=== PATIENT | female | born 1980 | race African-American/Black ===

== ENCOUNTER 2016-11-24 17:57 | Emergency (ER) | payer OTHER ==
[~2016-11-24] VITALS: Ht 160 cm; Wt 62.6 kg
[~2016-11-24 17:57] MED LIST: ACETAMINOPHEN-1 EAC1 PO; AMOXICILLIN500 M1 PO; BLOOD PRESSURE; CIPRO500 MG PO; COLACE100 MG PO; HYDROCODONE-AP1 EAC6 PO; LEVAQUIN 250 M250 MG PO; LOPRESSOR25 PO; MIRALAX17 GM PO; NAPROSYN500 MG PO; NORCO 5-325 TA1 EACH PO; PANTOPRAZOLE SO40 M1; PRINIVIL5 MG PO; PROTONIX40 M1 PO; REGLAN 10 MG TA10 MG PO; RENAL CAPS SOFTG1 MG; RENVELA800 MG; ULTRAM 50MG TAB50 MG PO; VIRT-PHOS 250250 MG PO; ZOFRAN ODT4 MG PO; [UNRECOGNIZED DRUG - REMARK]
[2016-11-24 19:43] LABS: URINE BILIRUBIN NEGATIVE (Negative); URINE BLOOD NEGATIVE (Negative); URINE COLOR YELLOW; URINE GLUCOSE-RANDOM* NEGATIVE (Negative); URINE KETONES NEGATIVE (Negative); URINE LEUKOCYTES-REFLEX NEGATIVE (Negative); URINE PROTEIN (DIPSTICK) TRACE (Negative); URINE UROBILINOGEN 0.2 E.U./dl (0.2-1.0)
[2016-11-24 20:12] LABS: ABSOLUTE NEUTROPHILS 8.8 thou/uL (1.4-8.2); BASOPHILS 0.5 % (0.0-2.0); EOSINOPHILS 1.1 % (0.0-3.0); HEMOGLOBIN 8.9 gm/dL (12.0-15.0); LYMPHOCYTES 17.6 % (24.0-44.0); MANUAL DIFF NO; MCH 28.8 pg (26.0-34.0); MCHC 34.2 g/dL (28.0-37.0); MCV 84.3 fL (80.0-100.0); MONOCYTES 7.5 % (1.0-8.0); PLATELET COUNT 395 thou/uL (150-400); POLYS 73.3 % (36.0-66.0); RBC 3.08 mil/uL (4.20-5.00); RDW 13.8 % (10.5-14.5); WBC 12.1 thou/uL (4.0-11.0)
[2016-11-24 20:22] LABS: CREATININE 9.7 mg/dL (0.6-1.0); POTASSIUM 3.4 mmol/L (3.5-5.1)
[2016-11-24] MEDS ORDERED: NORCO 5-325 TA1 EACH PO (21:14)
== END 2016-11-24 21:51 | disposition home or self-care (01) ==
LOC: ER 17:57
PROVIDERS: Emergency Medicine
DX: M32.9 Systemic lupus erythematosus, unspecified (principal); I10 Essential (primary) hypertension; Z91.041 Radiographic dye allergy status

== ENCOUNTER 2017-03-13 06:41 | Inpatient (IN) | payer OTHER ==
[~2017-03-13] VITALS: Ht 160 cm; Wt 69.4 kg
--- NOTE | ~2017-03-13 | HC ---
[facility] [place] [address] CONSULTATION Name: EMILY TAVAREZ,TERRI Ernst Room #: 441-P [facility] IN M.R.#: [id number] Admission: 03/13/17 Attend Phys: Kin Birmingham MD Discharge: Date of : 78 Report #: [id number] THIS REPORT FOR: //name// CC: FAM unknown Kin Birmingham REASON FOR CONSULTATION: End-stage renal disease. REASON FOR PRESENTATION: Abdominal pain. HISTORY OF PRESENT ILLNESS: This is a very well known patient to me. She suffers from end-stage renal disease due to systemic lupus erythematosus. She was initiated on hemodialysis 3 years ago. She then switched to peritoneal dialysis. She had an episode of peritonitis about 3 months ago and this was treated appropriately with intraperitoneal antibiotics. She currently is utilizing a cycler for her PD therapy. She is on 5 exchanges with 2.3 liter fluid volume alternating between 1.5% and 2.5% dialysis solution. She started to have some abdominal pain associated with low-grade temperature a few days ago. This was associated with nausea and vomiting. She describes the pain as typical for her peritonitis. She has presented for further evaluation and management and was found to have an elevated white blood cell count of 26,000. Initial fluid from the peritoneal catheter revealed a cloudy fluid with PD cell count consistent with peritonitis. She is being admitted. She was treated accordingly. I am being asked to evaluate her and to continue with her peritoneal dialysis regimen. PAST MEDICAL HISTORY: 1. End-stage renal disease. 2. Systemic lupus erythematosus. PAST SURGICAL HISTORY: PD catheter placement. MEDICATIONS: Include the followin. Lisinopril. 2. Renvela. 3. Metoprolol. ALLERGIES: IODINE. FAMILY HISTORY: Significant for hypertension in the past. REVIEW OF SYSTEMS: GENERAL: Weakness and low-grade temperature. CARDIOVASCULAR: No chest pain or palpitation. PULMONARY: No cough or hemoptysis. GASTROINTESTINAL: As per the history of present illness. NEUROLOGICAL: No dizziness, no syncope. [facility] [address] [place] [address] CONSULTATION Name: TERRI VALLADARES Room #: 441-P [facility].#: [id number] Admission: 03/13/17 Attend Phys: Kin Birmingham MD Discharge: Date of : 78 Report #: [id number] PHYSICAL EXAMINATION: GENERAL: She was alert, oriented, in mild distress. VITAL SIGNS: Blood pressure was 107/65. She was afebrile in the Emergency Room. CHEST: Decreased air entry bilaterally, but no crackles. CARDIOVASCULAR: Regular with no rub. ABDOMEN: Diffusely tender. Nondistended. There is a PD catheter. LOWER EXTREMITIES: +1 edema. LABORATORY DATA: Reviewed. She had hypokalemia with a potassium of 2.8. White blood cell count is 26,000. CT reviewed. ASSESSMENT, IMPRESSION AND PLAN: 1. Peritonitis in a patient who is maintained on peritoneal dialysis. 2. Hypokalemia. 3. Leukocytosis. 4. Systemic lupus erythematosus. 5. Peritoneal fluid had been sent and we will wait for the Gram stain, culture and sensitivity. 6. We will start appropriate intraperitoneal therapy with vancomycin and Fortaz in a 8-hour dwell till she gets on her cycler later tonight. 7. We will resume her usual cycler therapy of 5 exchanges, 2.3 liter fluid volume alternating between 1.5, 2.5% dialysis solution. I asked the nurses to add potassium to her peritoneal fluid given the degree of her hypokalemia. 8. We will continue with the intraperitoneal Fortaz 1 gram in the , repeat vancomycin every 5-7 days based on the vancomycin trough level. 9. We will tailor the antibiotic therapy according to a Gram stain, culture and sensitivity. 10. Resume her other blood pressure, phosphorus binder medications. We will decide about the fate of her PD catheter depending on what will grow out of her peritoneal fluid sample that was sent for culture and sensitivity. <ELECTRONICALLY SIGNED> By: Alexey Sadler MD 03/16/17 0832 [id number] Alexey Sadler MD /nt
--- NOTE | ~2017-03-13 | HC ---
[facility] [place] [address] CONSULTATION Name: TERRI VALLADARES Room #: 441-P ADM IN M.R.#: [id number] Admission: 03/13/17 Attend Phys: Kin Birmingham MD Discharge: Date of : 78 Report #: [id number] THIS REPORT FOR: //name// CC: FAM unknown Kin Birmingham TYPE OF REPORT: Infectious diseases consultation. REASON FOR CONSULTATION: I was asked to evaluate concerning peritoneal dialysis catheter associated peritonitis. HISTORY OF PRESENT ILLNESS: The patient was a 37-year old presented to the Emergency Room with acute onset of abdominal pain early this morning. Associated with this has been nausea and vomiting and loose stools. Yesterday, she stated she felt fine. She has had her peritoneal dialysis catheter for end-stage renal disease associated with systemic lupus erythematosus and hypertension. Since being placed, she has had now her third episode of peritonitis. Her last episode was in December of 2016. Her first episode was in 2014. She reports no change in her technique. Yesterday's fluid was unremarkable. This morning fluid was cloudy. She has had no other GI issues leading up to this. No previous surgeries on her abdomen. She has had no travel. No pet exposure. 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 Children have been healthy. ALLERGIES: IODINE. MEDICATIONS: As noted on her MAR including Lopressor, lisinopril, renal caps and Renvela. She was given vancomycin and ceftriaxone in the Emergency Room. Also, given vancomycin and ceftazidime intraperitoneally. PAST MEDICAL HISTORY: Peritoneal dialysis, lupus and hypertension. FAMILY HISTORY: Noncontributory. SOCIAL HISTORY: Nonsmoker. No significant alcohol intake. REVIEW OF SYSTEMS: No headache, cough, sputum or rash. PHYSICAL EXAMINATION: VITAL SIGNS: Afebrile and hemodynamically stable. GENERAL: She was alert and cooperative and pleasant, in no acute distress. Mucous membranes are dry. HEENT: Otherwise, unremarkable. SKIN: Unremarkable. CHEST: Clear. HEART: Regular, without murmur. ABDOMEN: Diffusely tender throughout. The left lower quadrant dialysis [facility] [address] [place] [address] CONSULTATION Name: TERRI VALLADARES Room #: 441-P ADM IN [facility]#: [id number] Admission: 03/13/17 Attend Phys: Kin Birmingham MD Discharge: Date of : 78 Report #: [id number] catheter was unremarkable. There was no tunnel tenderness specifically and no drainage. EXTREMITIES: Unremarkable. LABORATORY STUDIES: Procalcitonin 0.2, sodium 138, potassium 2.8, bicarbonate 29, creatinine 8, lipase 523 and ALT 27. Hemoglobin 10.8; white count 26,000 and platelet count 399,000. RADIOLOGICAL DATA: CT scan of the abdomen showed ascites, lesion to the left kidney and bilateral AV necrosis of the hips. PD fluid analysis is currently pending. Total cell number [id number]. IMPRESSION: Peritoneal dialysis associated peritonitis. Organism yet not identified. PLAN: Recommend continuing vancomycin and ceftazidime intraperitoneally. Await cultures of blood and PD fluid. We will also await Gram stain, which should be out soon. We will determine fate of her PD catheter following more information from her cultures and assess response to treatment. <ELECTRONICALLY SIGNED> By: Asif Liu MD 03/16/17 1012 [id number] 0323 Asif Liu MD /nt
[2017-03-13 06:42] VITALS: BP 112/73
[2017-03-13 07:39] LABS: HEMATOCRIT 32.1 % (37.0-47.0); HEMOGLOBIN 10.8 gm/dL (12.0-15.0); MCH 27.3 pg (26.0-34.0); MCHC 33.6 g/dL (28.0-37.0); MCV 81.1 fL (80.0-100.0); RBC 3.96 mil/uL (4.20-5.00); RDW 16.4 % (10.5-14.5); WBC 26.1 thou/uL (4.0-11.0)
[2017-03-13 07:52] LABS: TOTAL BILIRUBIN 0.3 mg/dL (<0.1-1.0); TOTAL PROTEIN 7.9 g/dL (6.4-8.2)
[2017-03-13 08:02] LABS: POTASSIUM 2.8 mmol/L (3.5-5.1)
[2017-03-13 09:54] VITALS: BP 112/73
[2017-03-13 10:05] LABS: COLOR LIGHT YELLOW; SOURCE PERITONEAL DIALYSATE; TOTAL VOLUME 110 mL
[2017-03-13 10:06] LABS: CLARITY CLOUDY
[2017-03-13 10:07] LABS: SOURCE PERITONEAL DIALYSATE
[2017-03-13 10:22] LABS: BF NUCLEATED CELLS 6399; BF RBC 1116
[2017-03-13 10:40] VITALS: BP 111/68
[2017-03-13 11:06] VITALS: BP 110/76
[2017-03-13 13:55] LABS: BF NEUTROPHILS 99
[2017-03-13 15:07] VITALS: BP 107/65
[2017-03-13] MEDS ORDERED: KLOR-CON 1010 MEQ PO (15:36)
[2017-03-13 22:35] VITALS: BP 101/61
[2017-03-14 08:00] VITALS: BP 94/60
[2017-03-14 10:39] LABS: ALBUMIN 2.3 g/dL (3.4-5.0); CALCIUM 8.8 mg/dL (8.5-10.1); CREATININE 8.6 mg/dL (0.6-1.0); PHOSPHORUS 3.5 mg/dL (2.5-4.9); POTASSIUM 3.1 mmol/L (3.5-5.1)
[2017-03-14 15:34] VITALS: BP 97/57
[2017-03-14 19:00] VITALS: BP 97/68
[2017-03-15 03:50] VITALS: BP 98/58
[2017-03-15 06:16] LABS: ABSOLUTE NEUTROPHILS 4.5 thou/uL (1.4-8.2); BASOPHILS 0.1 % (0.0-2.0); EOSINOPHILS 2.2 % (0.0-3.0); HEMATOCRIT 27.1 % (37.0-47.0); HEMOGLOBIN 9.3 gm/dL (12.0-15.0); LYMPHOCYTES 30.4 % (24.0-44.0); MCHC 34.3 g/dL (28.0-37.0); MCV 81.5 fL (80.0-100.0); MONOCYTES 6.5 % (1.0-8.0); PLATELET COUNT 341 thou/uL (150-400); POLYS 60.8 % (36.0-66.0); RBC 3.33 mil/uL (4.20-5.00); RDW 16.1 % (10.5-14.5)
[2017-03-15 06:23] LABS: CALCIUM 9.3 mg/dL (8.5-10.1); CREATININE 8.2 mg/dL (0.6-1.0); PHOSPHORUS 3.7 mg/dL (2.5-4.9); POTASSIUM 3.1 mmol/L (3.5-5.1)
[2017-03-15 06:27] LABS: WBC 7.4 thou/uL (4.0-11.0)
[2017-03-15 07:11] VITALS: BP 101/63
[2017-03-15 17:50] VITALS: BP 119/75
[2017-03-15 18:50] LABS: BF NUCLEATED CELLS 3365; BF RBC 1027
[2017-03-15 19:02] LABS: CLARITY HAZY; COLOR STRAW; TOTAL VOLUME 140 mL
[2017-03-15 19:05] LABS: SOURCE PERITONEAL DIALYSATE
[2017-03-15 19:46] LABS: BF NEUTROPHILS 79
[2017-03-15 19:47] LABS: BF MACROPHAGE 12
[2017-03-15 20:19] VITALS: BP 129/89
[2017-03-16 03:32] VITALS: BP 117/81
[2017-03-16 07:20] VITALS: BP 122/83
[2017-03-16 15:45] VITALS: BP 122/80
[2017-03-16 16:07] LABS: BODY FLUID PROTEIN < 0.2 g/dL (())
[2017-03-16 20:36] VITALS: BP 154/87
[2017-03-17 04:04] VITALS: BP 118/71
[2017-03-17 06:58] LABS: HEMATOCRIT 29.4 % (37.0-47.0); MCH 27.9 pg (26.0-34.0); MCHC 33.9 g/dL (28.0-37.0); MCV 82.1 fL (80.0-100.0); RBC 3.58 mil/uL (4.20-5.00); RDW 16.1 % (10.5-14.5); WBC 5.8 thou/uL (4.0-11.0)
[2017-03-17 07:09] LABS: ALBUMIN 1.9 g/dL (3.4-5.0); CALCIUM 9.2 mg/dL (8.5-10.1); PHOSPHORUS 2.9 mg/dL (2.5-4.9)
[2017-03-17 08:30] VITALS: BP 121/74
[2017-03-17 16:27] LABS: BF NUCLEATED CELLS 44; BF RBC 14
[2017-03-17 16:32] LABS: CLARITY CLEAR; COLOR LIGHT YELLOW; SOURCE ABDOMINAL; TOTAL VOLUME 120 mL
[2017-03-17 17:10] VITALS: BP 135/88
[2017-03-17 17:32] LABS: BF MACROPHAGE 45; BF NEUTROPHILS 35
[2017-03-17 19:39] VITALS: BP 138/74
[2017-03-18 03:51] VITALS: BP 126/83
[2017-03-18 05:01] LABS: HEMATOCRIT 30.4 % (37.0-47.0); HEMOGLOBIN 10.2 gm/dL (12.0-15.0); MCH 27.7 pg (26.0-34.0); MCHC 33.7 g/dL (28.0-37.0); MCV 82.3 fL (80.0-100.0); RBC 3.7 mil/uL (4.20-5.00); RDW 16.8 % (10.5-14.5); WBC 8.5 thou/uL (4.0-11.0)
[2017-03-18 05:15] LABS: CALCIUM 9.7 mg/dL (8.5-10.1); CREATININE 8.5 mg/dL (0.6-1.0); POTASSIUM 3.8 mmol/L (3.5-5.1)
[2017-03-18 07:58] VITALS: BP 120/77
[2017-03-18 12:16] VITALS: BP 120/77
[2017-03-18 12:23] VITALS: BP 120/77
[2017-03-18 12:44] VITALS: BP 124/98
== END 2017-03-18 16:30 | disposition home or self-care (01) | DRG 871 ==
LOC: ER 06:41 → EROBS 08:55 → 4S 08:55
PROVIDERS: Emergency Medicine; Hospitalist; Internal Medicine Nephrology
PROC: 3E1M39Z Irrigation of Peritoneal Cavity using Dialysate, Percutaneous Approach (ICD-10-PCS; principal; 2017-03-16)
PROC: 3E1M39Z Irrigation of Peritoneal Cavity using Dialysate, Percutaneous Approach (ICD-10-PCS; 2017-03-17)
DX: A41.9 Sepsis, unspecified organism (principal); K65.9 Peritonitis, unspecified; N18.6 End stage renal disease; I12.0 Hypertensive chronic kidney disease with stage 5 chronic kidney disease or end stage renal disease; E87.6 Hypokalemia; M32.9 Systemic lupus erythematosus, unspecified; Z91.041 Radiographic dye allergy status
CPT/HCPCS: 10100; 33000

== ENCOUNTER 2019-02-12 18:46 | Emergency (ER) | payer OTHER ==
[~2019-02-12] VITALS: Ht 160 cm; Wt 66.2 kg
[~2019-02-12 18:46] MED LIST changes: +KLOR-CON 1010 MEQ PO
[2019-02-12 19:49] LABS: ABSOLUTE NEUTROPHILS 9.4 thou/uL (1.4-8.2); BASOPHILS 0.4 % (0.0-2.0); EOSINOPHILS 1.4 % (0.0-3.0); HEMATOCRIT 27.5 % (37.0-47.0); HEMOGLOBIN 9.2 gm/dL (12.0-15.0); LYMPHOCYTES 18.5 % (24.0-44.0); MCH 26.5 pg (26.0-34.0); MCHC 33.5 g/dL (28.0-37.0); MCV 78.9 fL (80.0-100.0); MONOCYTES 6.9 % (1.0-8.0); PLATELET COUNT 285 thou/uL (150-400); POLYS 72.8 % (36.0-66.0); RBC 3.48 mil/uL (4.20-5.00); RDW 18.9 % (10.5-14.5); WBC 12.9 thou/uL (4.0-11.0)
[2019-02-12 19:56] LABS: CALCIUM 9.6 mg/dL (8.5-10.1); CREATININE 15.4 mg/dL (0.6-1.0)
[2019-02-12 20:01] LABS: POTASSIUM 2.8 mmol/L (3.5-5.1)
[2019-02-12 20:03] LABS: APTT 32.9 Seconds (24.5-32.8); INR 1.1; PROTIME 11.1 Seconds (9.3-11.4)
[2019-02-12] MEDS ORDERED: ZOFRAN ODT4 MG PO (22:48)
[2019-02-12 23:00] VITALS: BP 168/109
== END 2019-02-12 23:05 | disposition home or self-care (01) ==
LOC: ER 18:46
PROVIDERS: Emergency Medicine
DX: S40.022A Contusion of left upper arm, initial encounter (principal); S70.11XA Contusion of right thigh, initial encounter; E87.6 Hypokalemia; R11.2 Nausea with vomiting, unspecified; I10 Essential (primary) hypertension; Z99.2 Dependence on renal dialysis; Z88.8 Allergy status to other drugs, medicaments and biological substances; X58.XXXA Exposure to other specified factors, initial encounter; Y93.89 Activity, other specified; Y92.89 Other specified places as the place of occurrence of the external cause; Y99.8 Other external cause status

== ENCOUNTER 2019-04-17 20:07 | Emergency (ER) | payer OTHER ==
[~2019-04-17] VITALS: Ht 160 cm; Wt 65.8 kg
[2019-04-17 21:00] LABS: ABSOLUTE NEUTROPHILS 7.6 thou/uL (1.4-8.2); BASOPHILS 0.8 % (0.0-2.0); EOSINOPHILS 0.1 % (0.0-3.0); HEMATOCRIT 38.2 % (37.0-47.0); HEMOGLOBIN 12.2 gm/dL (12.0-15.0); LYMPHOCYTES 14.9 % (24.0-44.0); MCH 25.5 pg (26.0-34.0); MCV 79.7 fL (80.0-100.0); MONOCYTES 9.9 % (1.0-8.0); PLATELET COUNT 416 thou/uL (150-400); POLYS 74.3 % (36.0-66.0); RBC 4.79 mil/uL (4.20-5.00); RDW 20.8 % (10.5-14.5); WBC 10.3 thou/uL (4.0-11.0)
[2019-04-17 21:13] LABS: CALCIUM 8.8 mg/dL (8.5-10.1); CREATININE 14.9 mg/dL (0.6-1.0); POTASSIUM 3.1 mmol/L (3.5-5.1)
[2019-04-17 21:16] LABS: URINE BILIRUBIN NEGATIVE (Negative); URINE BLOOD 2+ (Negative); URINE CLARITY CLEAR; URINE COLOR YELLOW; URINE GLUCOSE-RANDOM* NEGATIVE (Negative); URINE KETONES NEGATIVE (Negative); URINE LEUKOCYTES-REFLEX NEGATIVE (Negative); URINE NITRITE-REFLEX NEGATIVE (Negative); URINE PROTEIN (DIPSTICK) 3+ (Negative); URINE UROBILINOGEN 0.2 E.U./dl (0.2-1.0)
[2019-04-17 21:17] LABS: TOTAL BILIRUBIN 1.4 mg/dL (<0.1-1.0); TOTAL PROTEIN 7.2 g/dL (6.4-8.2)
[2019-04-17 21:31] LABS: BACTERIA-REFLEX 1-9 Few /HPF (None Seen); CASTS None Seen /LPF (None Seen); CRYSTALS None Seen /LPF (None Seen); MUCUS None Seen strn/LPF (None Seen); SQUAMOUS 0-3 Few /LPF (0-3); URINE RBC 3-10 Few /HPF (0-2); URINE WBC-REFLEX 0-5 Rare /HPF (0-5)
[2019-04-17 21:34] LABS: ANISOCYTOSIS 2+; MACROCYTES FEW; POLYCHROMASIA OCCASIONAL
[2019-04-17] MEDS ORDERED: ZOFRAN ODT4 MG PO (23:29)
[2019-04-17] MEDS ORDERED: PREDNISONE 20 M20 MG PO (23:29)
[2019-04-17] MEDS ORDERED: NORCO 5-325 TA1 EAC1 PO (23:29)
[2019-04-18 00:06] VITALS: BP 150/79
== END 2019-04-17 23:40 | disposition home or self-care (01) ==
LOC: ER 20:07
PROVIDERS: Nurse Practitioner Family
DX: N19 Unspecified kidney failure (principal); I16.0 Hypertensive urgency; E87.6 Hypokalemia; B34.9 Viral infection, unspecified; R11.2 Nausea with vomiting, unspecified; I10 Essential (primary) hypertension; Z88.8 Allergy status to other drugs, medicaments and biological substances

== ENCOUNTER 2019-05-30 16:52 | Emergency (ER) | payer OTHER ==
[~2019-05-30] VITALS: Ht 160 cm; Wt 69.4 kg
[~2019-05-30 16:52] MED LIST changes: +NORCO 5-325 TA1 EAC1 PO; +PREDNISONE 20 M20 MG PO
[2019-05-30] MEDS ORDERED: RAYOS5 MG PO (17:16)
[2019-05-30 17:33] LABS: HEMATOCRIT 39.4 % (37.0-47.0); MCH 24.6 pg (26.0-34.0); MCHC 32.9 g/dL (28.0-37.0); PLATELET COUNT 298 thou/uL (150-400); RBC 5.26 mil/uL (4.20-5.00); RDW 19.6 % (10.5-14.5); WBC 21.8 thou/uL (4.0-11.0)
[2019-05-30 17:53] LABS: ABSOLUTE NEUTROPHILS 19.4 thou/uL (1.4-8.2); ANISOCYTOSIS 1+
[2019-05-30 17:54] LABS: HYPOCHROMASIA SLIGHT; LARGE PLATELETS OCCASIONAL; MICROCYTES 1+
[2019-05-30 18:07] LABS: CALCIUM 8.7 mg/dL (8.5-10.1); CREATININE 15.2 mg/dL (0.6-1.0); POTASSIUM 3.4 mmol/L (3.5-5.1)
[2019-05-30 20:34] VITALS: BP 200/103
== END 2019-05-30 20:35 | disposition home or self-care (01) ==
LOC: ER 16:52
PROVIDERS: Physician Assistant
DX: M32.9 Systemic lupus erythematosus, unspecified (principal); L95.9 Vasculitis limited to the skin, unspecified; I10 Essential (primary) hypertension; Z99.2 Dependence on renal dialysis; Z88.8 Allergy status to other drugs, medicaments and biological substances

== ENCOUNTER 2019-06-09 19:36 | Inpatient (IN) | payer OTHER ==
[~2019-06-09] VITALS: Ht 162.6 cm; Wt 75.3 kg
[~2019-06-09 19:36] MED LIST changes: +RAYOS5 MG PO
[2019-06-09 19:38] VITALS: BP 185/105
[2019-06-09 20:34] LABS: HEMATOCRIT 32.8 % (37.0-47.0); HEMOGLOBIN 10.8 gm/dL (12.0-15.0); MCH 24.4 pg (26.0-34.0); MCHC 33.1 g/dL (28.0-37.0); MCV 73.7 fL (80.0-100.0); PLATELET COUNT 274 thou/uL (150-400); RBC 4.44 mil/uL (4.20-5.00); RDW 20.4 % (10.5-14.5); WBC 22.8 thou/uL (4.0-11.0)
[2019-06-09 20:42] LABS: CALCIUM 8.6 mg/dL (8.5-10.1); CREATININE 16.5 mg/dL (0.6-1.0); POTASSIUM 3.4 mmol/L (3.5-5.1)
[2019-06-09 20:48] LABS: ALBUMIN 2.7 g/dL (3.4-5.0); TOTAL PROTEIN 6.9 g/dL (6.4-8.2)
[2019-06-09 20:58] LABS: ABSOLUTE NEUTROPHILS 19.6 thou/uL (1.4-8.2); ANISOCYTOSIS 2+; MICROCYTES 1+
[2019-06-09 20:59] LABS: HYPOCHROMASIA 1+
[2019-06-09 22:47] VITALS: BP 179/102
--- NOTE | 2019-06-10 | NUR ---
Pt. admitted to the unit from the emergency room accompanied by staff. She is alert and oriented. Admission assessment and history is completed. She is in isolation for covid-19 rule out. No coughing noted and no c/o shortness of air. Up to the bathroom with minimal assistance. She does have a dialysis access drain and she gives herself home dialysis.
[2019-06-10] MEDS ORDERED: CELLCEPT500 MG (00:04)
[2019-06-10] MEDS ORDERED: PLAQUENIL200 MG PO (00:06)
[2019-06-10 00:07] VITALS: BP 165/118
[2019-06-10 05:43] VITALS: BP 173/100
[2019-06-10 06:11] LABS: HEMATOCRIT 33.9 % (37.0-47.0); HEMOGLOBIN 11.2 gm/dL (12.0-15.0); MCH 24.4 pg (26.0-34.0); MCHC 32.9 g/dL (28.0-37.0); MCV 74.2 fL (80.0-100.0); RBC 4.57 mil/uL (4.20-5.00); RDW 20.2 % (10.5-14.5); WBC 19.6 thou/uL (4.0-11.0)
--- NOTE | 2019-06-10 06:28 | NUR ---
Pt. rested quietly during the night when checked on during frequent rounds. Bp elevated and Marco Freire WHEELCHAIR DRIVER notified (see cpoe) for new orders. No c/o any shortness of air or pain.
[2019-06-10 06:30] LABS: CALCIUM 8.7 mg/dL (8.5-10.1)
[2019-06-10 06:40] LABS: POTASSIUM 4.4 mmol/L (3.5-5.1)
[2019-06-10 08:34] VITALS: BP 173/97
--- NOTE | 2019-06-10 10:52 | NUR ---
RD consult received, reason not specified. Admit with lupu flare up. Hx htn, ESRD/peritoneal dialysis. Chart with minimal information as pt newly admitted, also pending COVID 19 results. large wt fluctuations 134-166 in recent past. Has renal diet ordered. Will followup again on Monday 06/12 when more information available and able to speak with pt.
--- NOTE | 2019-06-10 12:50 | NUR ---
INITIAL ASSESSMENT: LYSSA reviewed chart and spoke with nursing and attending physician. Pt was admitted from home due to pneumonia. Pt is in Enhanced Isolation to r/o COVID-19. LYSSA spoke with pt via phone. Introduced role of SW. Pt appears to be alert/orientated x 4. Pt reports she lives at home with her family. Prior to admission, pt was independent with ADLs. No use of DME. No hx of HH services or post-acute placement. Pt with hx of lupus. Pt does peritoneal dialysis at home daily. Pt states she is connected with the home program at [facility]. Pt to have dialysis tonight. Anticipate discharge home soon pending COVID results. Pt does not currently have a PCP. LYSSA faxed list of providers to nurses station to provide to pt. No discharge needs identified at this time. Pt's family will provide transportation. LYSSA updated [facility] clinic. Final discharge orders/summary will need to be faxed when available. LYSSA is avaialble to assist as needed. [facility]--
[2019-06-10] MEDS ORDERED: CEFDINIR300 MG PO (15:03)
[2019-06-10] MEDS ORDERED: AMLODIPINE BESY10 MG PO (15:03)
[2019-06-10 15:23] VITALS: BP 173/97
--- NOTE | 2019-06-10 16:12 | NUR ---
ASSUMED PATIENT CARE AT 0700. A/O X4. BLE EDEMA. AUDREY KELLER. [place] HOME NOW.
--- NOTE | 2019-06-14 10:31 | HC ---
[facility] [place] [address] CONSULTATION Name: EMILY TAVAREZTERRI Ernst Room #: 353-P [facility] IN M.R.#: [id number] Admission: 06/09/19 Attend Phys: Fidencio Chaves Discharge: 06/10/19 Date of : 78 Report #: [id number] THIS REPORT FOR: cc: CHEL - Grisel family physician/PCP CHEL - Grisel family physician/PCP Alexey Sadler MD ~ CC: CHEL physician/PCP Fidencio Chaves REASON FOR CONSULTATION: End-stage renal disease. REASON FOR PRESENTATION: Not feeling well. HISTORY OF PRESENT ILLNESS: A 39-year-old with past medical history of end-stage renal disease, maintained on peritoneal dialysis. She sees me in the clinic. Her end-stage renal disease was due to lupus. She has had major issues with peritonitis in the past related to her peritoneal dialysis back in 2018. This was treated appropriately. She has been doing well from the peritoneal dialysis perspective. She was on hemodialysis before that. She presented to the hospital, telling me that she has checked with her physiologist regarding her lupus and he started her on steroids along with CellCept. She did not feel well after that and had some issues with cough. She denies fever. She denies nausea or vomiting. On presentation to the Emergency Room, she was found to have leukocytosis. She was admitted for further evaluation and management and is being ruled out for COVID-19 infection. PAST MEDICAL HISTORY: Extensive and includes the following, 1. End-stage renal disease due to lupus. 2. Hypertension. 3. Remote history of hemodialysis. 4. Currently maintained on peritoneal dialysis. FAMILY HISTORY: Hypertension and diabetes mellitus. 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 No drug or alcohol abuse. PAST SURGICAL HISTORY: 1. Right IJ tunneled catheter. 2. PD catheter. REVIEW OF SYSTEMS: GENERAL: No fever, but significant for weakness. CARDIOVASCULAR: No chest pain or palpitation. PULMONARY: Significant for some cough. GASTROINTESTINAL: No nausea or vomiting. GENITOURINARY: No frequency, no urgency. MUSCULOSKELETAL: Diffuse myalgias. [facility] [address] [place] [address] CONSULTATION Name: TERRI VALLADARES Room #: 353-P [facility].#: [id number] Admission: 06/09/19 Attend Phys: Fidencio Chaves Discharge: 06/10/19 Date of : 78 Report #: [id number] MEDICATIONS: 1. Hydroxychloroquine. 2. Metoprolol. 3. Lisinopril. 4. Potassium chloride. 5. Mycophenolate. 6. Recent prednisone dose. PHYSICAL EXAMINATION: GENERAL: She is alert, oriented, in no apparent distress. VITAL SIGNS: Blood pressure is 173/97, temperature is 36.8, pulse rate is 104, respiratory rate is 17. HEAD AND NECK: No jugular venous distention. CHEST: No crackles. CARDIOVASCULAR: Regular with no rub detected. ABDOMEN: Soft and nontender. LOWER EXTREMITIES: Trace edema. LABORATORY VALUES: White blood cell count is 19.6, platelet is 309. Hemoglobin is 11.2, MCV is 74. Sodium is 142, potassium is 4.4, BUN is 82, creatinine is 17. Coronavirus is pending. Chest x-ray reviewed, mild lower lobe infiltrates. IMPRESSION AND PLAN: 1. End-stage renal disease. 2. Hypertension, out of control. 3. Systemic lupus erythematosus. 4. Person under investigation being ruled out for coronavirus. 5. We will arrange for the patient to have her usual peritoneal dialysis today. Her blood pressure needs better control and I will adjust her medications accordingly. Check lupus flareup markers. 6. Continue with the same medications for now including CellCept, hydroxychloroquine. Those medications are for the purpose of her systemic lupus erythematosus. 7. I will have to reach out her physiologist regarding her lupus disease. <ELECTRONICALLY SIGNED> By: Alexey Sadler MD 06/14/19 1031 1000 [id number] Alexey Sadler MD /nt
== END 2019-06-10 16:36 | disposition home or self-care (01) | DRG 193 ==
LOC: ER 19:36 → 3W 22:10 → EROBS 22:10 → 3W 23:41
PROVIDERS: Emergency Medicine; Nurse Practitioner Family; ADMIT Hospitalist
PROC: 3E1M39Z Irrigation of Peritoneal Cavity using Dialysate, Percutaneous Approach (ICD-10-PCS; principal; 2019-06-10)
DX: J18.9 Pneumonia, unspecified organism (principal); N18.6 End stage renal disease; E43 Unspecified severe protein-calorie malnutrition; I12.0 Hypertensive chronic kidney disease with stage 5 chronic kidney disease or end stage renal disease; R65.10 Systemic inflammatory response syndrome (SIRS) of non-infectious origin without acute organ dysfunction; M32.9 Systemic lupus erythematosus, unspecified; Z79.891 Long term (current) use of opiate analgesic; Z91.041 Radiographic dye allergy status; Z82.49 Family history of ischemic heart disease and other diseases of the circulatory system; Z83.3 Family history of diabetes mellitus; Z03.818 Encounter for observation for suspected exposure to other biological agents ruled out; Z79.899 Other long term (current) drug therapy
CPT/HCPCS: 10080; 33000

== ENCOUNTER 2019-06-12 22:44 | Inpatient (IN) | payer OTHER ==
[~2019-06-12] VITALS: Ht 162.6 cm; Wt 74.4 kg
--- NOTE | ~2019-06-12 | EKG ---
[facility] [place] [address] ELECTROCARDIOGRAM REPORT Name: TERRI VALLADARES Room #: 219-P ADM IN M.R.#: [id number] Admission: 06/13/19 Attend Phys: Juvenal Rashid MD Discharge: Date of : 78 Report #: [id number] THIS REPORT FOR: cc: NO FAMILY PHYSICIAN or PCP NO FAMILY PHYSICIAN or PCP Tenisha Steven MD ~ THIS REPORT FOR: //name// 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
[~2019-06-12 22:44] MED LIST changes: +AMLODIPINE BESY10 MG PO; +CEFDINIR300 MG PO; +CELLCEPT500 MG; +PLAQUENIL200 MG PO
[2019-06-12 22:46] VITALS: BP 181/100
[2019-06-12 23:55] LABS: HEMATOCRIT 31.8 % (37.0-47.0); HEMOGLOBIN 10.4 gm/dL (12.0-15.0); MCH 24.2 pg (26.0-34.0); MCHC 32.6 g/dL (28.0-37.0); MCV 74.1 fL (80.0-100.0); PLATELET COUNT 345 thou/uL (150-400); RBC 4.29 mil/uL (4.20-5.00); RDW 21.2 % (10.5-14.5); WBC 24.6 thou/uL (4.0-11.0)
[2019-06-12 23:58] LABS: CALCIUM 9.1 mg/dL (8.5-10.1); CREATININE 16.6 mg/dL (0.6-1.0); POTASSIUM 3.4 mmol/L (3.5-5.1)
[2019-06-13] VITALS (7 sets, daily range): BP systolic 157–215; BP diastolic 94–108
[2019-06-13 00:08] LABS: ALBUMIN 2.9 g/dL (3.4-5.0); TOTAL BILIRUBIN 1.5 mg/dL (<0.1-1.0); TOTAL PROTEIN 7.3 g/dL (6.4-8.2); TROPONIN-I 0.14 ng/mL (<0.06)
[2019-06-13 00:48] LABS: ABSOLUTE NEUTROPHILS 21.4 thou/uL (1.4-8.2); ANISOCYTOSIS 2+; MICROCYTES 1+
[2019-06-13 01:16] LABS: INR 1.1; PROTIME 11.5 Seconds (9.3-11.4)
[2019-06-13] MEDS ORDERED: COZAAR 25 MG TA25 M1 PO (05:31)
[2019-06-13] MEDS ORDERED: CLONIDINE HCL0.1 MG PO (05:32)
[2019-06-13] MEDS ORDERED: CALCITRIOL0.25 MCG PO (05:33)
--- NOTE | 2019-06-13 06:09 | NUR ---
PT ARRIVED AT THE UNIT AROUND 0240, PT IS AWAKE, A&0X4, ADMISSION ASSESSMENT DONE AND ORDERED, COMPLAINED OF CHEST PAIN OF A 4, RELIEVED BY RELAXATION NO FURTHER COMPLAINS, VSS,SR ON THE MONITOR, WILL CONTINUE TO MONITOR
--- NOTE | 2019-06-13 07:59 | EKG ---
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
--- NOTE | 2019-06-13 07:59 | EKG ---
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 : 1980 Requested By: Trung Hill Order Number: [id number] MD: Reji Brooks Measurements Intervals [place] Rate: 99 P: CT: QRS: 43 QRSD: 87 T: 86 QT: 374 QTc: 480 Interpretive Statements Sinus rhythm Nonspecific ST segment abnormality Borderline prolonged QT interval Baseline wander in lead(s) V6 Compared to ECG 12/14/2015 21:29:56 No significant change was found Electronically Signed On 06-13-2019 7:57:19 CDT by Reji Brooks [email or web address] <ELECTRONICALLY SIGNED> By: Reji Brooks MD, [facility] 06/13/19 0757 56 Reji Brooks MD, [facility] /EPI
--- NOTE | 2019-06-13 10:57 | 2DMMODE ---
[facility] [place] [address] 2 D/M-MODE ECHOCARDIOGRAM Name: TERRI VALLADARES Room #: 219-P ADM IN ..#: [id number] Admission: 06/13/19 Attend Phys: Orion oMnson MD Discharge: Date of : 78 Report #: [id number] THIS REPORT FOR: cc: NO FAMILY PHYSICIAN or PCP NO FAMILY PHYSICIAN or PCP Alden Morfin MD ~ APPROVED REPORT Study performed: 06/13/2019 09:54:28 EXAM: Comprehensive 2D, Doppler, and color-flow Echocardiogram Patient Location: Bedside Room #: 219 Status: routine BSA: 1.80 HR: 98 bpm BP: 166/96 mmHg Other Information Study Quality: Adequate Indications Elevated Troponin Chest Pain Hypertension/HDD Lupus 2D Dimensions RVDd: 27.41 mm IVSd: 14.05 (7-11mm) LVOT Diam: 20.10 (18-24mm) LVDd: 33.74 mm PWd: 13.30 (7-11mm) Ascending Ao: 30.78 (22-36mm) LVDs: 24.56 (25-40mm) Aortic Root: 30.92 mm IVC: 16.00 mm Volumes Left Atrial Volume (Systole) Single Plane 4CH: 50.25 mL Single Plane 2CH: 77.25 mL LA ESV Index: 38.00 mL/m2 Aortic Valve AoV Peak Barber.: 1.54 m/s AO Peak Gr.: 9.49 mmHg LVOT Max P.65 mmHg LVOT Max V: 1.19 m/s [facility] [address] [place] [address] 2 D/M-MODE ECHOCARDIOGRAM Name: TERRI VALLADARES Room #: 219-P [facility] IN [facility].#: [id number] Admission: 06/13/19 Attend Phys: Anam Del Rio Discharge: Date of : 78 Report #: [id number] FRIDA Vmax: 2.45 cm2 Mitral Valve E/A Ratio: 0.8 MV Decel. Time: 175.45 ms MV E Max Barber.: 0.85 m/s MV A Barber.: 1.01 m/s MV PHT: 50.88 ms IVRT: 110.73 ms Pulmonary Valve PV Peak Barber.: 1.22 m/s PV Peak Gr.: 5.96 mmHg Pulmonary Vein P Vein S: 0.79 m/s P Vein A: 0.18 m/s P Vein D: 0.35 m/s P Vein A Dur.: 69.2 msec P Vein S/D Ratio: 2.26 Tricuspid Valve RAP Estimate: 5.00 mmHg Left Ventricle The left ventricle is normal size. Mild concentric left ventricular hypertrophy. The left ventricular systolic function is normal. The left ventricular ejection fraction is within the normal range. LVEF is 60%. Mild diastolic dysfunction is present (impaired relaxation pattern). Right Ventricle The right ventricle is normal size. The right ventricular systolic function is normal. Atria Left atrium is mildly dilated. The right atrium size is normal. Aortic Valve The aortic valve is normal in structure. No aortic regurgitation is present. There is no aortic valvular stenosis. Mitral Valve The mitral valve is normal in structure. There is no mitral valve regurgitation noted. No evidence of mitral valve stenosis. Tricuspid Valve The tricuspid valve is normal in structure. Trace tricuspid [facility] [address] [place] [address] 2 D/M-MODE ECHOCARDIOGRAM Name: TERRI VALLADARES Room #: 219-P [facility] IN M.R.#: [id number] Admission: 06/13/19 Attend Phys: Anam Del Rio Discharge: Date of : 78 Report #: [id number] regurgitation. Unable to assess PA pressure. Pulmonic Valve The pulmonary valve is normal in structure. Trace pulmonic regurgitation. Great Vessels The aortic root is normal in size. IVC is normal in size and collapses >50% with inspiration. Pericardium Trace pericardial effusion. <Conclusion> The left ventricle is normal size. Mild concentric left ventricular hypertrophy. The left ventricular systolic function is normal. Mild diastolic dysfunction is present (impaired relaxation pattern). The right ventricle is normal size. Left atrium is mildly dilated. The aortic valve is normal in structure. There is no mitral valve regurgitation noted. Trace tricuspid regurgitation. Trace pericardial effusion. <ELECTRONICALLY SIGNED> By: Alden Morfin MD 06/13/19 1055 1055 Alden Morfin MD /INF
--- NOTE | 2019-06-13 12:21 | EKG ---
[facility] [address] ELECTROCARDIOGRAM REPORT Name: EMILY VALLADARESGUZMAN Ernst Room #: 219-P ADM IN M.R.#: [id number] Admission: 06/13/19 Attend Phys: Orion Monson MD Discharge: Date of : 78 Report #: [id number] THIS REPORT FOR: cc: NO FAMILY PHYSICIAN or PCP NO FAMILY PHYSICIAN or PCP Reji Brooks MD 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
--- NOTE | 2019-06-13 17:50 | NUR ---
ASSUMED CARE OF PT AT SHIFT CHANGE. ASSESSMENTS CHARTED. MEDS GIVEN PER APR. PT A&OX4, C/O CHEST PAIN 4-07/26, TREATED WITH IV MEDS WITH PARTIAL RELIEF. STRESS TEST COMLETE. PERITONEAL DIALYSIS CONFIRMED FOR TONIGHT. WILL CONTINUE TO MONITOR AND FOLLOW POC.
[2019-06-14] VITALS (7 sets, daily range): BP systolic 136–174; BP diastolic 87–100
[2019-06-14 05:29] LABS: ABSOLUTE NEUTROPHILS 11.4 thou/uL (1.4-8.2); BASOPHILS 0.1 % (0.0-2.0); EOSINOPHILS 0.5 % (0.0-3.0); HEMATOCRIT 27.8 % (37.0-47.0); HEMOGLOBIN 9.4 gm/dL (12.0-15.0); LYMPHOCYTES 10.8 % (24.0-44.0); MCH 25.1 pg (26.0-34.0); MCHC 33.6 g/dL (28.0-37.0); MCV 74.7 fL (80.0-100.0); MONOCYTES 8.8 % (1.0-8.0); POLYS 79.8 % (36.0-66.0); RBC 3.73 mil/uL (4.20-5.00); RDW 20.6 % (10.5-14.5); WBC 14.3 thou/uL (4.0-11.0)
[2019-06-14 05:30] LABS: PLATELET COUNT 268 thou/uL (150-400)
[2019-06-14 05:54] LABS: CREATININE 16.1 mg/dL (0.6-1.0); POTASSIUM 3.7 mmol/L (3.5-5.1); TROPONIN-I 0.07 ng/mL (<0.06)
--- NOTE | 2019-06-14 06:15 | NUR ---
PT A&O X4 ABLE TO MAKE NEEDS KNOWN. UP AD HANY. PD OVERNIGHT. NO ACUTE FINDINGS THIS SHIFT. PT CALLS APPROPRIATELY.
[2019-06-14] MEDS ORDERED: LOPRESSOR50 PO (11:08)
[2019-06-14] MEDS ORDERED: AZITHROMYCIN500 MG PO (11:08)
[2019-06-14] MEDS ORDERED: PROTONIX40 M2 PO (11:08)
--- NOTE | 2019-06-14 17:02 | NUR ---
Chart reviewed, sp with nurse. Patient resides in independent home with spouse who truck supervisor. Recent dc from [facility] for pna. Patient independent with adls, no hx of DME, home health or post acute care. Patient does paritoneal dialysis at home daily. She does not have PCP but prev admission rec resources for PCP. Sp with RN patient was dc today but refused to dc reports not feeling well. RN had patient sign IM and she did not want to appeal dc. Her family members have called unit RN upset patient to be discharged as they feel she is not ready. Patient to stay in hospital another night per RN. At dc order to be faxed to Radha DÍAZ [phone] FAX [phone]
--- NOTE | 2019-06-14 17:11 | NUR ---
ASSESSMENT CHARTED. PT ALERT AND ORIENTED. BP MEDS GIVEN ORDERED. DENIED HAVING CHEST PAIN. ORDERS GIVEN TO DISCHARGE PT TO HOME. PT REPORT STATED SHE WAS SCARED TO GO HOME BECAUSE LAST ADMISSION SHE WAS SENT HOME AND BECAME SICK. PT GIVEN IM TO APPEAL D/C BUT REFUSED. PT'S SISTER AND THE MOTHER CALLED THE UNIT AND COMPAINED ABOUT PT'S DISCHARGE PLAN FOR TODAY. THEY RAISED CONCERNS THAT THEY FELT PT WAS NOT WELL ENOUGH TO GO HOME. DR. DOBBINS AND COLOR MAKER NOTIFIED. ORDERS GIVEN TO HOLD DISCHARGE FOR TODAY. WILL CONTINUE TO MONITOR.
--- NOTE | 2019-06-15 03:12 | NUR ---
CONT CARE OF PT REPORT RECIEVIED FROM OTHER NURSE. PT ARRIVED FROM [facility] VIA W/C A&OX4 DENIES PAIN. GETTING PERITONEAL DIALYSIS THIS NIGHT. RT IV INTACT AND SL. CALL LIGHT IN REACH AND WILL CONT WITH POC TILL EOS.
[2019-06-15 04:50] VITALS: BP 145/90
[2019-06-15 07:04] VITALS: BP 137/79
[2019-06-15 12:30] VITALS: BP 174/90
--- NOTE | 2019-06-15 12:52 | NUR ---
Assumed pt care at 7am.Pt in room resting post pd treatment.Assessment completed.vss.Pt was very frustrated about taking several meds daily with some that are unnecessary.Emotional support given and pt encouraged to discuss further with her primary doctor before taking any decision.Dr Monson here,order noted.Pt will be dc home later this evening between 5&6pm. No further c/o.Will continue to monitor.
[2019-06-15] MEDS ORDERED: PROTONIX40 M2 PO (13:02)
[2019-06-15] MEDS ORDERED: ZOFRAN 4 MG ORAL4 MG PO (13:02)
--- NOTE | 2019-06-15 14:14 | NUR ---
CARE TEAM INDICATED THAT PT IS MEDICALLY STABLE TO DC HOME THIS DAY. [phone] FA[facility] [phone]. PT HAS TRNASPORT HOME VIA FAMILY AROUND 1700. NO OTHER CM INTERVENTION INDICATED. CASE CLOSED.
[2019-06-15 15:27] VITALS: BP 148/94
== END 2019-06-15 18:16 | disposition home or self-care (01) | DRG 304 ==
LOC: ER 22:44 → 2N 06-13 01:44 → EROBS 06-13 01:44 → 2N 06-13 02:32 → 4S 06-14 19:47
PROVIDERS: Emergency Medicine; Nurse Practitioner Family; ADMIT Hospitalist
PROC: 3E1M39Z Irrigation of Peritoneal Cavity using Dialysate, Percutaneous Approach (ICD-10-PCS; principal; 2019-06-13)
DX: I16.1 Hypertensive emergency (principal); N18.6 End stage renal disease; J18.9 Pneumonia, unspecified organism; I13.11 Hypertensive heart and chronic kidney disease without heart failure, with stage 5 chronic kidney disease, or end stage renal disease; K29.70 Gastritis, unspecified, without bleeding; M32.9 Systemic lupus erythematosus, unspecified; D72.829 Elevated white blood cell count, unspecified; D64.9 Anemia, unspecified; Z99.2 Dependence on renal dialysis; Z91.041 Radiographic dye allergy status; Z79.82 Long term (current) use of aspirin; Z79.899 Other long term (current) drug therapy
CPT/HCPCS: 10081; 10102; 33000

== ENCOUNTER 2019-07-19 09:50 | Inpatient (IN) | payer OTHER ==
[~2019-07-19] VITALS: Ht 152.4 cm; Wt 59.4 kg
[~2019-07-19 09:50] MED LIST changes: +AZITHROMYCIN500 MG PO; +CALCITRIOL0.25 MCG PO; -CELLCEPT500 MG; +CELLCEPT500 MG PO; +CLONIDINE HCL0.1 MG PO; +COZAAR 25 MG TA25 M1 PO; +LOPRESSOR50 PO; +PROTONIX40 M2 PO; +ZOFRAN 4 MG ORAL4 MG PO
[2019-07-19 09:52] VITALS: BP 198/123
[2019-07-19 10:41] LABS: HEMATOCRIT 24.5 % (37.0-47.0); HEMOGLOBIN 8.3 gm/dL (12.0-15.0); MCH 25.6 pg (26.0-34.0); MCHC 33.6 g/dL (28.0-37.0); PLATELET COUNT 375 thou/uL (150-400); RBC 3.23 mil/uL (4.20-5.00); RDW 22.4 % (10.5-14.5); WBC 15.4 thou/uL (4.0-11.0)
[2019-07-19 10:50] LABS: CREATININE 9.7 mg/dL (0.6-1.0); POTASSIUM 3.6 mmol/L (3.5-5.1)
[2019-07-19 11:00] LABS: ALBUMIN 2.5 g/dL (3.4-5.0); TOTAL BILIRUBIN 1.6 mg/dL (0.2-1.0); TOTAL PROTEIN 6.6 g/dL (6.4-8.2); TROPONIN-I 0.12 ng/mL (<0.06)
[2019-07-19 11:15] LABS: ABSOLUTE NEUTROPHILS 13.9 thou/uL (1.4-8.2)
[2019-07-19 11:16] VITALS: BP 188/120
[2019-07-19 11:16] LABS: ANISOCYTOSIS 2+; HYPOCHROMASIA 1+; MICROCYTES 1+; PLATELET ESTIMATE NORMAL
--- NOTE | 2019-07-19 11:38 | NUR ---
NOTIFIED DR MORENO ABOUT THE PT'S CURRENT BP. DR MORENO INFORMED ME TO ALLOW THE PT TO TAKE HER HOME MEDICATIONS SCHEDULED AT NOON.
--- NOTE | 2019-07-19 13:23 | NUR ---
ATTEMPTED TO CALL REPORT. I WAS INFORMED THEY WOULD HAVE TO CALL ME BACK.
[2019-07-19 14:06] VITALS: BP 175/102
[2019-07-19 16:11] LABS: % SATURATION 67 % (20-39); IRON 130 ug/dL (50-170); TIBC 193 ug/dL (250-450)
[2019-07-19 17:30] VITALS: BP 178/100
--- NOTE | 2019-07-19 20:29 | NUR ---
PATIENT TO 3W NURSING THIS AFTERNOON AND RESTING COMFORTABLY IN BED AND COMPLETED HER VANCOMYCIN IVPB. NO COMPLAINTS OF PAIN. PATIENT HAS POOR INTAKE AND INDICATED SHE HAS LOST WEIGHT AND DOESN'T LIKE HOSPITAL FOOD. DIETARY HAS BEEN CONSULTED. PATIENT HAS BEEN HYPERTENSIVE, BUT STATES SHE NORMALLY HAS ELEVATED BP ESPECIALLY WHEN RETAINING FLUID. DIAYSIS WAS STARTED AT END OF SHIFT BY CAROLINE. CAROLINE REQUESTED [facility] FOR THE AM.
[2019-07-19 21:03] VITALS: BP 175/106
--- NOTE | 2019-07-19 23:14 | NUR ---
ASSUMED PT CARE AT 1900. RECEIVING PERITONEAL DIALYSIS OVERNIGHT. ON 2 LITERS STILL. BP HAS BEEN HIGH ALL DAY, SOLE LEVELER NOTFIED AND STARTED HOME BP MEDS. WILL CONTINUE TO MONITOR BP OVERNIGHT. PITTING EDEMA BILATERAL FEET. NO COMPLAINTS OF PAIN. PT TESTED NEGATIVE FOR COVID-19, SOLE LEVELER AND HOUSE SUP NOTFIED. NO ORDERS FROM SOLE LEVELER TO SWAB AGAIN, D/C ISOLATION WILL BE LEFT UP TO ID. PT IS CURRENTLY RESTING IN BED WATCHING TV, NO COMPLAINTS AT THIS TIME.
[2019-07-20 00:15] VITALS: BP 163/99
[2019-07-20 05:31] VITALS: BP 164/98
[2019-07-20 07:41] LABS: HEMATOCRIT 23.1 % (37.0-47.0); HEMOGLOBIN 7.7 gm/dL (12.0-15.0); MCH 25.4 pg (26.0-34.0); MCHC 33.6 g/dL (28.0-37.0); MCV 75.6 fL (80.0-100.0); RBC 3.05 mil/uL (4.20-5.00); RDW 22.2 % (10.5-14.5)
[2019-07-20 07:50] LABS: CALCIUM 8.6 mg/dL (8.5-10.1); CREATININE 9.4 mg/dL (0.6-1.0); POTASSIUM 3.2 mmol/L (3.5-5.1)
--- NOTE | 2019-07-20 07:58 | EKG ---
[facility] [address] [place] [address] ELECTROCARDIOGRAM REPORT Name: EMILY FUARA Room #: 358-P ADM IN M.R.#: [id number] Admission: 07/19/19 Attend Phys: Juvenal Rashid MD Discharge: Date of : 78 Report #: [id number] THIS REPORT FOR: cc: CHEL - Grisel family physician/PCP CHEL - Grisel family physician/PCP Reji Brooks MD [facility] ~ THIS REPORT FOR: //name// [facility] ED Test Date: 2019-07-19 Test Time: 10:09:04 Pat Name: TERRI FU Department: Room: 358 Gender: F E Commerce Retailer: EVARISTO MANZANARES : 1980 Requested By: Trung Hill Order Number: [id number] MD: Reji Brooks Measurements Intervals [place] Rate: 78 P: 33 AL: 172 QRS: 26 QRSD: 90 T: 81 QT: 446 QTc: 509 Interpretive Statements Sinus rhythm Left ventricular hypertrophy Borderline prolonged QT interval Compared to ECG 06/13/2019 08:22:06 Left ventricular hypertrophy now present Electronically Signed On 07-20-2019 7:56:24 CDT by Reji Brooks [email or web address] <ELECTRONICALLY SIGNED> By: Reji Brooks MD, [facility] 07/20/19 0756 1009 1009 Reji Brooks MD, [facility] /EPI
[2019-07-20 08:14] VITALS: BP 151/85
--- NOTE | 2019-07-20 11:26 | NUR ---
RD consult received. Admit with anemia. Hx ESRD/peritoneal dialysis, lupus, htn. GI/renal following for anemia workup, possible need for EGD/colonoscopy. Visited and pt speaking softly, eyes closed not wanting to answer many questions. Breakfast tray untouched and voiced only wanted soup for lunch today-upset stomach. States normally eats fine. Large wt variations and pt felt usual wts closer to 135 lb. In May was 164 lb. Pt requesting trial of nepro-will order. Aware she can order from alternative menu. Low nutrition risk.
--- NOTE | 2019-07-20 13:49 | NUR ---
INITIAL ASSESSMENT: LYSSA reviewed chart and spoke with nursing and attending physician. Pt was admitted from home due to pneumonia. Pt is in Enhanced Isolation to r/o COVID-19. Test is negative. LYSSA spoke with pt via phone. Introduced role of SW. Pt appears to be alert/orientated x 4. Pt reports she lives at home with her family. Prior to admission, pt was independent with ADLs. No use of DME. Pt states she has been weak. No hx of HH services or post-acute placement. Pt with hx of lupus. Pt does peritoneal dialysis at home daily. Pt states she is connected with the home program at [facility]. Pt does not currently have a PCP. LYSSA faxed list of providers to nurses station to provide to pt. Pt's family will provide transportation. LYSSA left voice message for Jia at [facility] clinic. Final discharge orders/summary will need to be faxed when available. PT/OT ordered to evaluate pt for discharge needs. LYSSA is avaialble to assist as needed. [facility]--
--- NOTE | 2019-07-20 18:47 | NUR ---
PATIENT SLEPT THROUGH THE DAY. DENIES PAIN OR DISTRESS. PLEASANT WITH CARES. WILL CONT WITH PLAN OF CARE.
[2019-07-20 19:26] VITALS: BP 138/77
[2019-07-21 03:50] VITALS: BP 142/70
--- NOTE | 2019-07-21 05:30 | NUR ---
ASSUMED CARE AT 1900, ASSESSMENT COMPLETED. PT DENIED PAIN. DENIES NAUSEA BUT REPORTS POOR APPETITE. SATTING WELL ON 2L O2, REPORTS SOB WITH ACTIVITY. PERITONEAL DIALYSIS GOING OVERNIGHT. HAD TWO SMALL/MEDIUM LOOSE STOOLS OVERNIGHT. PLAN FOR THORACENTESIS TODAY, AND POSSIBLE EGD, NPO SINCE MIDNIGHT. NO OTHER CONCERNS, WILL CONTINUE TO MONITOR.
[2019-07-21 06:05] LABS: HEMATOCRIT 23.1 % (37.0-47.0); HEMOGLOBIN 7.9 gm/dL (12.0-15.0); MCH 26.1 pg (26.0-34.0); MCV 76.8 fL (80.0-100.0); RBC 3.01 mil/uL (4.20-5.00); RDW 22.5 % (10.5-14.5); WBC 10.4 thou/uL (4.0-11.0)
[2019-07-21 06:18] LABS: CALCIUM 8.4 mg/dL (8.5-10.1); CREATININE 9.4 mg/dL (0.6-1.0); MAGNESIUM 1.4 mg/dL (1.8-2.4)
[2019-07-21 06:25] LABS: ALBUMIN 1.9 g/dL (3.4-5.0); SGOT 20 U/L (15-37); SGPT 34 U/L (30-65); TOTAL PROTEIN 5.1 g/dL (6.4-8.2)
[2019-07-21 06:30] LABS: DIRECT BILIRUBIN < 0.1 mg/dL (<0.1-0.2); POTASSIUM 2.9 mmol/L (3.5-5.1)
[2019-07-21 08:02] VITALS: BP 149/85
[2019-07-21 08:41] LABS: TOTAL PROTEIN 5.7 g/dL (6.4-8.2)
[2019-07-21 08:57] LABS: APTT 29.2 Seconds (24.5-32.8); FIBRINOGEN 464.2 mg/dL (210-360); INR 1.2; PROTIME 12.3 Seconds (9.3-11.4)
[2019-07-21 09:09] LABS: HEPATITIS B SURFACE AG Negative (Negative)
[2019-07-21 11:12] VITALS: BP 147/85
--- NOTE | 2019-07-21 13:48 | NUR ---
LYSSA reviewed chart and spoke with nursing and attending physician. Pt had left thoracentesis today. Pt will have right thoracentesis and EGD/colonoscopy tomorrow. LYSSA spoke with Naren at [facility] home dept to provide update. LYSSA faxed updated clinical info and COVID-19 test results to [facility] for review. Therapy to evaluate pt for discharge needs. Pt currently on continuous O2. LYSSA is following to assist as needed with discharge planning.
[2019-07-21 13:54] LABS: CLARITY HAZY; SOURCE CHEST; TOTAL VOLUME 35 mL
[2019-07-21 13:55] LABS: COLOR STRAW
[2019-07-21 14:21] LABS: BF NUCLEATED CELLS 47 /mm3; BF RBC 143 /mm3
[2019-07-21 16:33] LABS: BF MACROPHAGE 49 %; BF NEUTROPHILS 8 %
--- NOTE | 2019-07-21 16:55 | NUR ---
PATIENT CONT TO REST AT THIS TIME. PATIENT DENIES PAIN. SHE WILL BE HAVING DIALYSIS THIS PM AND ALSO TOMORROW WILL HAVE AN EGD. SHE HAS SIGNED THE CONSENT. DIARRHEA HAS RESOLVED WITH IMMODIUM. WILL CONT WITN PLAN OF PAIR.
[2019-07-21 20:00] VITALS: BP 135/84
--- NOTE | 2019-07-21 20:03 | NUR ---
1900 assumed care of pt after bedside report. 1999 Bowel prep mmed started, baseline assessment completed, pt resting in bed with no complaints, peritoneal dialysis running, scd's in place bowel sounds normoactive x 4 quads, abd soft to palpation, denies nausea, states loose stool this am, will continue to monitor fall precautions in place, o2 nc 2L
[2019-07-22] VITALS: BP 126/67
[2019-07-22 04:00] VITALS: BP 131/76
[2019-07-22 06:15] LABS: HEMATOCRIT 23.3 % (37.0-47.0); HEMOGLOBIN 7.9 gm/dL (12.0-15.0); MCH 25.9 pg (26.0-34.0); MCV 76.1 fL (80.0-100.0); RBC 3.07 mil/uL (4.20-5.00); RDW 22.6 % (10.5-14.5); WBC 11.3 thou/uL (4.0-11.0)
[2019-07-22 07:17] LABS: CALCIUM 8.5 mg/dL (8.5-10.1); CREATININE 9.4 mg/dL (0.6-1.0); MAGNESIUM 2.3 mg/dL (1.8-2.4)
[2019-07-22 07:20] LABS: POTASSIUM 2.6 mmol/L (3.5-5.1)
[2019-07-22 07:47] VITALS: BP 156/79
--- NOTE | 2019-07-22 16:18 | NUR ---
LYSSA reviewed chart and spoke with nursing and attending physician. Pt to have EGD/colonoscopy today. Pt may be ready for discharge home over the weekend. Awaiting therapy evals at this time. Should pt discharge home over the weekend. Finalized discharge orders/summary will need to be faxed to [facility]. LYSSA is available to assist as needed with discharge planning. [facility]--
[2019-07-22 16:21] VITALS: BP 145/85
--- NOTE | 2019-07-22 16:58 | NUR ---
PATIENT HAD EGD/COLO THIS AM. POST PROCEDURE SHE SLEPT ALL DAY UP TO NOW. STATES SHE IS HAVING CRAMPS ON HER LEGS/FEET. WILL CONT TO HAVE DIALYSIS THIS PM. WILL CONT WITH PLAN OF CARE.
[2019-07-22 17:08] LABS: BODY FLUID ALBUMIN 0.8 g/dL (Not Estab.); BODY FLUID AMYLASE 27 U/L (()); BODY FLUID GLUCOSE 115 mg/dL (()); BODY FLUID LDH 105 IU/L (())
--- NOTE | 2019-07-22 17:08 | PATH ---
[facility] [address] [employer] [place] [address] PATHOLOGY RPT PROCEDURE Name: TERRI VALLADARES Room #: 358-P ADM IN M.R.#: [id number] Admission: 07/19/19 Date of : 78 Discharge: Report #: [id number] Path Case #: [id number] Note [facility] Accession Number: [id number] TESTS RESULT FLAG UNITS REF RANGE LAB Clinician Provided Cytology Information No. of containers..01 Other (Miscellaneous) Source: 01 PLEURAL FLUID DIAGNOSIS: 02 PLEURAL FLUID NEGATIVE FOR MALIGNANT CELLS. REACTIVE MESOTHELIAL CELLS ARE PRESENT. THIS INTERPRETATION INCLUDES EVALUATION OF A CELL BLOCK. Signed out by: 02 Abhinav Corado MD, Pathologist NPI- [id number] Performed by: 01 Diana Quinn, Varnishing Machine Operator ([facility]) Gross description: 01 10ML, CLEAR YELLOW, 1 TP 1 CB /LCS 07/21/2019 1725 Local FLAG LEGEND: L-Low Normal,H-High Normal,LL-Alert Low,HH-Alert High <-Panic Low,>-Panic High,A-Abnormal,AA-Critical Abnormal Performed at: [address] [place] [address] Paul Lantigua MD, [address] [address] Abhinav Corado MD, Specimen Comment: A courtesy copy of this report has been sent to [phone] Specimen Comment: [phone] Specimen Comment: Report sent to / DR MARCANO Specimen Comment: A duplicate report has been generated due to demographic updates. Performed at: [address], [place], [place] [id number] MD Paul Lantigua MD Phone: [phone]
[2019-07-22 19:51] VITALS: BP 133/83
[2019-07-22 23:32] VITALS: BP 139/73
[2019-07-23 03:46] VITALS: BP 151/85
[2019-07-23 06:24] LABS: HEMATOCRIT 22.3 % (37.0-47.0); HEMOGLOBIN 7.6 gm/dL (12.0-15.0); MCH 26.1 pg (26.0-34.0); MCHC 34.2 g/dL (28.0-37.0); MCV 76.4 fL (80.0-100.0); RBC 2.91 mil/uL (4.20-5.00); RDW 22.8 % (10.5-14.5); WBC 9.3 thou/uL (4.0-11.0)
[2019-07-23 06:38] LABS: CALCIUM 8.6 mg/dL (8.5-10.1); MAGNESIUM 2.2 mg/dL (1.8-2.4)
[2019-07-23 07:14] VITALS: BP 158/88
--- NOTE | 2019-07-23 09:17 | NUR ---
PT IS ALERT AND ORIENTED X4 N. VSS OVERNIGHT, AFEBRIE. PERITONEAL DIALYSIS RAN ALL NIGHT WITHOUT DIFFICULTY. PT DID NOT URINATE LAST NIGHT. NO BM lAST NIGHT. MEDICATED FOR PAINFUL FEET LAST NIGHT X2 WITH ADEQUATE RELIEF OBTAINED. SHE FELL BACK ASLLEP AFTER TYLENOL AND TURNING. PT ON FALL PRECAUTIONS. BED ALARM ON. NO S/S RESP DISTRESS. CRACKLES NOTED UPON INITIAL ASSESSMENT. 4 AM ASSESSMENT NO CRACKLES NOTED.
--- NOTE | 2019-07-23 12:40 | NUR ---
Assumed pt care at 7am.Pt in and out of bed to bathroom.Assessment completed.vss.Pt c/o bilat.feet rated 9/10.Tylenol po given without relief. Dr Rashid notified,he said pt might dc home today.Tramadol ordered and will be given when veify by paharmach.Will continue to monitor.
[2019-07-23] MEDS ORDERED: AUGMENTIN 875-1 EACH PO (13:33)
[2019-07-23 14:05] VITALS: BP 158/88
[2019-07-24 11:21] LABS: SOURCE PLEURAL
[2019-07-24 11:22] LABS: SOURCE PLEURAL
[2019-07-25 10:31] LABS: SOURCE CHEST
[2019-07-25 10:32] LABS: SOURCE CHEST
--- NOTE | 2019-07-25 17:07 | PATH ---
[facility] [address] [address] PATHOLOGY RPT PROCEDURE Name: NERISSA VALLADARES Room #: 358-P DIS IN M.R.#: [id number] Admission: 07/19/19 Date of : 78 Discharge: 07/23/19 Report #: [id number] Path Case #: [id number] [facility] Accession Number: [id number] . 01 Material submitted: . PART A: duodenum - BIOPSY OF DUODENUM R/O CELIAC PART B: stomach - BIOPSY OF ANTRUM R/O H. PYLORI . 01 Clinical history: . A. R/O celiac B. R/O H. pylori . 02 Diagnosis: A. Small bowel mucosa, duodenum, rule out celiac, endoscopic biopsy: - No diagnostic abnormalities present. - Negative for villous blunting or increase in intraepithelial lymphocytes. . B. Gastric mucosa, antrum, rule out H. pylori, endoscopic biopsy: - Mild chronic inflammation. - Negative for intestinal metaplasia or atrophy. - Negative for Helicobacter pylori (properly-controlled immunohistochemical stain performed). . (IUV:mml; 07/25/2019) QL 07/25/2019 1054 Local . 02 Electronically signed: . Farzaneh Qiu MD, Pathologist NPI- [id number] . 01 Gross description: . A. The specimen is received in formalin, labeled "Nerissahua Tavarez, biopsy of duodenum". Received is a segment of pale baires soft tissue measuring 0.4 cm in maximum dimensions. The specimen is submitted entirely in cassette A1. . B. The specimen is received in formalin, labeled "Nerissa George Tavarez, biopsy of antrum". Received is a segment of pale baires soft tissue measuring 0.5 cm in maximum dimensions. The specimen is submitted entirely in cassette B1. (CAA; 07/22/2019) QAC/QA 07/22/2019 1814 Local . 02 Pathologist provided ICD-10: K29.50 . 02 [place] [id number] PATHOLOGY RPT PROCEDURE Name: GEORGE VERAMINGNERISSA Room #: 358-P DIS IN M.R.#: [id number] Admission: 07/19/19 Date of : 78 Discharge: 07/23/19 Report #: [id number] Path Case #: [id number] [facility] . [id number], [id number], [id number] Specimen Comment: A courtesy copy of this report has been sent to [phone], [phone] Specimen Comment: [phone] Specimen Comment: Report sent to / DR MARCANO Performed at: [address], [place], [place] [id number] MD Paul Lantigua MD Phone: [phone] Performed at: [address] [id number] MD Farzaneh Qiu MD Phone: [phone]
--- NOTE | 2019-07-27 09:18 | HC ---
[facility] [place] [address] CONSULTATION Name: EMILY TAVAREZTERRI Room #: 358-P [facility] IN M.R.#: [id number] Admission: 07/19/19 Attend Phys: Juvenal Rashid MD Discharge: 07/23/19 Date of : 78 Report #: [id number] THIS REPORT FOR: cc: CHEL - Grisel family physician/PCP CHEL - Grisel family physician/PCP Alexey Sadler MD ~ CC: CHEL physician/PCP Juvenal Rashid DATE OF SERVICE: 07/20/2019 REASON FOR CONSULTATION: End-stage renal disease. REASON FOR PRESENTATION: Shortness of breath. HISTORY OF PRESENT ILLNESS: This is a 39-year-old who is well known to me. She has end-stage renal disease due to lupus. She is extremely noncompliant with her current peritoneal dialysis regimen. In most of the instances her blood pressure is out of control. She has had numerous admissions in the last couple of months for numerous complaints. She has been in our facility, [facility]. She presented yesterday reporting that she has been having progressive shortness of breath and was found to have hypertensive urgency. She was also found to have bilateral pulmonary infiltrate and left-sided pleural effusion. She was anemic and was admitted to further evaluate her symptoms. From the renal perspective, the patient was on hemodialysis for some time and then was switched to peritoneal dialysis. However, she had extreme noncompliance with her peritoneal dialysis regimen contributing to hypertensive urgencies and pulmonary edema. I was asked to assist with the management of her dialysis related issues. MEDICATIONS: 1. Clonidine. 2. Metoprolol. 3. Losartan. 4. Mycophenolate. 5. Prednisone. PAST MEDICAL HISTORY: Extensive and includes the followin. Lupus. 2. 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 3. Currently maintained on peritoneal dialysis. 4. Hypertension. 5. Anemia of chronic disease. 6. Post PD catheter insertion. FAMILY HISTORY: Significant for diabetes mellitus and hypertension. 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 She reports no drug or alcohol abuse. PAST SURGICAL HISTORY: 1. Right IJ tunneled catheter. 2. PD catheter. REVIEW OF SYSTEMS: GENERAL: Significant for weakness. No fever or chills. CARDIOVASCULAR: Significant for shortness of breath. PULMONARY: No cough or hemoptysis. GASTROINTESTINAL: No nausea or vomiting. GENITOURINARY: No frequency, no urgency. MUSCULOSKELETAL: Diffuse myalgias and body aches. NEUROLOGICAL: No headache, no dizziness. ALLERGIES: IODINE. PHYSICAL EXAMINATION: VITAL SIGNS: Temperature 36.9, pulse rate 89, blood pressure 164/98. HEAD AND NECK: No jugular venous distention. Facial edema present. CHEST: Crackles present bilaterally with decreased air entry on the left side. CARDIOVASCULAR: No rub detected. ABDOMEN: Soft, nontender. LOWER EXTREMITIES: No edema. LABORATORY VALUES: Reviewed. White blood cell count is 12, hemoglobin is 7.7, and platelets are 376. Sodium is 132, potassium is 3.2, BUN is 39, and creatinine is 9.4. ASSESSMENT, IMPRESSION AND PLAN: 1. End-stage renal disease. 2. Extreme noncompliance with her peritoneal dialysis regimen contributing to hypertensive urgencies and fluid overload. 3. Anemia. 4. History of lupus, maintained on chronic immunosuppressive medications. 5. Anemia. 6. Leukocytosis. 7. Continue with the usual peritoneal dialysis regimen. Continue to weight loss counselor about compliance. 8. Resume EPO for her anemia. 9. Her anemia is multifactorial because of her current immunosuppressive medications along with anemia of end-stage renal disease. 10. Leukocytosis related to steroids. 11. The patient was instructed about the compliance with her peritoneal [address] [address] CONSULTATION Name: TERRI VALLADARES Room #: 358-P [facility] IN [facility].#: [id number] Admission: 07/19/19 Attend Phys: Juvenal Rashid MD Discharge: 07/23/19 Date of : 78 Report #: [id number] dialysis. However, she continues to exhibit nonadherence to her current dialysis regimen. She was instructed that she needs to think about switching to hemodialysis for better volume control. <ELECTRONICALLY SIGNED> By: Alexey Sadler MD 07/27/1918 0843 Alexey Sadler MD /nt
== END 2019-07-23 14:53 | disposition home health service (06) | DRG 871 ==
LOC: ER 09:50 → EROBS 11:51 → 3W 11:51
PROVIDERS: Emergency Medicine; Nurse Practitioner; Nurse Practitioner Family; Pediatrics; ADMIT Internal Medicine; ATTEND Internal Medicine
PROC: 3E1M39Z Irrigation of Peritoneal Cavity using Dialysate, Percutaneous Approach (ICD-10-PCS; principal; 2019-07-19)
PROC: 3E1M39Z Irrigation of Peritoneal Cavity using Dialysate, Percutaneous Approach (ICD-10-PCS; 2019-07-20)
PROC: 3E1M39Z Irrigation of Peritoneal Cavity using Dialysate, Percutaneous Approach (ICD-10-PCS; 2019-07-21)
PROC: 0W9B3ZZ Drainage of Left Pleural Cavity, Percutaneous Approach (ICD-10-PCS; 2019-07-21)
PROC: 3E1M39Z Irrigation of Peritoneal Cavity using Dialysate, Percutaneous Approach (ICD-10-PCS; 2019-07-22)
PROC: 0DB98ZX Excision of Duodenum, Via Natural or Artificial Opening Endoscopic, Diagnostic (ICD-10-PCS; 2019-07-22)
PROC: 0DB78ZX Excision of Stomach, Pylorus, Via Natural or Artificial Opening Endoscopic, Diagnostic (ICD-10-PCS; 2019-07-22)
PROC: 0DJD8ZZ Inspection of Lower Intestinal Tract, Via Natural or Artificial Opening Endoscopic (ICD-10-PCS; 2019-07-22)
PROC: 3E1M39Z Irrigation of Peritoneal Cavity using Dialysate, Percutaneous Approach (ICD-10-PCS; 2019-07-23)
DX: A41.9 Sepsis, unspecified organism (principal); J96.21 Acute and chronic respiratory failure with hypoxia; N18.6 End stage renal disease; J18.9 Pneumonia, unspecified organism; E43 Unspecified severe protein-calorie malnutrition; J90 Pleural effusion, not elsewhere classified; I13.2 Hypertensive heart and chronic kidney disease with heart failure and with stage 5 chronic kidney disease, or end stage renal disease; I50.32 Chronic diastolic (congestive) heart failure; R65.20 Severe sepsis without septic shock; D50.9 Iron deficiency anemia, unspecified; I16.0 Hypertensive urgency; M32.9 Systemic lupus erythematosus, unspecified; D63.8 Anemia in other chronic diseases classified elsewhere; D72.829 Elevated white blood cell count, unspecified; E80.6 Other disorders of bilirubin metabolism; Z20.828 Contact with and (suspected) exposure to other viral communicable diseases; K29.70 Gastritis, unspecified, without bleeding; K64.8 Other hemorrhoids; Z87.01 Personal history of pneumonia (recurrent); Z83.3 Family history of diabetes mellitus; Z82.49 Family history of ischemic heart disease and other diseases of the circulatory system; Z91.15 Patient's noncompliance with renal dialysis; Z68.25 Body mass index [BMI] 25.0-25.9, adult; Z79.891 Long term (current) use of opiate analgesic; Z79.899 Other long term (current) drug therapy; Z91.041 Radiographic dye allergy status
CPT/HCPCS: 10879; 33000; 62110; 62900; 70005

== ENCOUNTER 2019-08-16 22:13 | Inpatient (IN) | payer OTHER ==
[~2019-08-16] VITALS: Ht 162.6 cm; Wt 55.8 kg
--- NOTE | ~2019-08-16 | HC ---
[facility] [place] [address] [place] [address] CONSULTATION Name: TERRI VALLADARES Room #: 363-P ADM IN M.R.#: [id number] Admission: 08/17/19 Attend Phys: Juvenal Rashid MD Discharge: Date of : 78 Report #: [id number] THIS REPORT FOR: cc: [facility] - Clinic physician unknown [facility] - Clinic physician unknown Alexey Sadler MD ~ CC: [facility] unknown Juvenal Rashid REASON FOR CONSULTATION: End-stage renal disease. REASON FOR PRESENTATION: Weakness and abdominal pain. HISTORY OF PRESENT ILLNESS: This is a very well-known patient to me. She is in end-stage renal disease, was maintained on peritoneal dialysis. She has lupus with all complications related to that. She presented with nonspecific abdominal pain, nausea, loss of appetite. She also has some musculoskeletal complaints including hip pain related to avascular necrosis. On presentation, she was found to have mild fever and leukocytosis. She was admitted for further evaluation and management. Peritoneal fluid was sent for analysis and it showed significant nucleated cells. She is currently being treated as peritonitis related to her peritoneal dialysis. PAST MEDICAL HISTORY: 1. End-stage renal disease, maintained on peritoneal dialysis. 2. Lupus. 3. Anemia. 4. Status post PD catheter insertion. 5. Chronic immunosuppressive medication usage including CellCept and prednisone. 6. Hypertension. FAMILY HISTORY: Significant for hypertension. MEDICATIONS: 1. Hydroxychloroquine. 2. Clonidine. 3. Amlodipine. 4. Losartan. 5. Mycophenolate. 6. Prednisone. REVIEW OF SYSTEMS: GENERAL: Significant for weakness and lethargy. CARDIOVASCULAR: No chest pain or palpitation. PULMONARY: No cough or hemoptysis. GASTROINTESTINAL: As per the history of present illness. [facility] [address] [place] [address] CONSULTATION Name: TERRI VALLADARES Room #: 363-P ADM IN M.R.#: [id number] Admission: 08/17/19 Attend Phys: Juvenal Rashid MD Discharge: Date of : 78 Report #: [id number] GENITOURINARY: No frequency, no urgency. MUSCULOSKELETAL: As per the history of present illness. NEUROLOGICAL: No headache, no dizziness. ALLERGIES: IODINE. PHYSICAL EXAMINATION: GENERAL: She is alert, oriented, in no apparent distress. VITAL SIGNS: Temperature is 37.3, pulse rate is 95, respiratory rate is 16, blood pressure is 155/100. HEAD AND NECK: No jugular venous distention. CHEST: No crackles. CARDIOVASCULAR: Regular with no rub. ABDOMEN: Slight tenderness with a PD catheter. EXTREMITIES: Lower extremities, no edema. LABORATORY VALUES: On presentation reviewed. The white blood cell count is 19.2, which is down to 12.5. Hemoglobin is down to 8.4. Chemistry from today revealed a sodium of 138, potassium 3.6, BUN of 25 and a creatinine of 10.9. Chest x-ray is clear. CT abdomen revealed mild ascites related to her peritoneal fluid. ASSESSMENT, IMPRESSION AND PLAN: 1. End-stage renal disease, maintained on peritoneal dialysis. 2. Significant leukocytosis and nucleated cells in the peritoneal aspirate. As for now, we will continue with intraperitoneal vancomycin every 3-5 days and ceftazidime every day. 3. Resume her blood pressure medication. 4. GI evaluating the patient for her ongoing GI issues. By: 1035 1227 Alexey Sadler MD /nt
[~2019-08-16 22:13] MED LIST changes: +AUGMENTIN 875-1 EACH PO
[2019-08-16 22:17] VITALS: BP 126/79
[2019-08-16] MEDS ORDERED: RENAL-VITE TAB0.8 MG PO (22:34)
[2019-08-16 22:45] LABS: HEMATOCRIT 32.7 % (37.0-47.0); MCHC 33.5 g/dL (28.0-37.0); MCV 86.5 fL (80.0-100.0); RBC 3.78 mil/uL (4.20-5.00); RDW 20.8 % (10.5-14.5); WBC 19.2 thou/uL (4.0-11.0)
[2019-08-16 23:01] LABS: ALBUMIN 2.3 g/dL (3.4-5.0); CALCIUM 9.7 mg/dL (8.5-10.1); CREATININE 11.2 mg/dL (0.6-1.0); TOTAL BILIRUBIN 1.2 mg/dL (0.2-1.0); TOTAL PROTEIN 7.3 g/dL (6.4-8.2); TROPONIN-I 0.2 ng/mL (<0.06)
[2019-08-16 23:02] LABS: POTASSIUM 2.9 mmol/L (3.5-5.1)
[2019-08-17 02:46] VITALS: BP 151/101
[2019-08-17 03:02] VITALS: BP 142/91
[2019-08-17 05:00] VITALS: BP 139/90
--- NOTE | 2019-08-17 05:05 | NUR ---
PATIENT ASSESSED. IS ALERT X 4. SKIN WARM AND DRY. RESP EVEN AMND UNLABORED. CAME TO ED BECAUSE SHE HAS HAD N/V AND ABDOMINAL PAIN FOR 2 WEEKS. ALSO POOR APPETITE FOR 2 WEEKS. HAS LOST 10 # OR MORE STATED BY PATIENT. NO EDEMA NOTED TO LOWER EXTREMITIES. IS A PERITONEAL DIAYLSIS PATIENT THAT DOES HER OWN DIALYSIS AT HOME DURING THE NIGHT. HAS A RIGHT ABDOMINAL DRESSING COVERING A CATHETER. COMPLAINING OF ABDOMINAL PAIN AND BACK PAIN , AND GENERALIZED PAIN ALL OVER. REMAINS WEAK WHEN SHE WALKS. PAIN MED GIVEN AND ZOFRAN ALSO GIVEN FOR NAUSEA. MS FOR PAIN IN BACK AND ABDOMINAL AREA. NO EMESIS NOTED. REMAINS IN ISOLATION FOR R/O COVID. 1ST SWAB DONE IN ED. CAME TO ROOM AT 0310, PER CART. AMBULATED TO BED ON ARRIVAL. HAS 2 IV SL ONE IN RIGHT HAND AND ONE IN RIGHT AC. ALL FLUSH WELL. CONT PLAN OF CARE.
[2019-08-17 07:50] VITALS: BP 148/91
--- NOTE | 2019-08-17 08:13 | EKG ---
[facility] [place] [address] [place] [address] ELECTROCARDIOGRAM REPORT Name: EMILY TAVAREZTERRI CLEMENT Room #: 363-P ADM IN M.R.#: [id number] Admission: 08/17/19 Attend Phys: Juvenal Rashid MD Discharge: Date of : 78 Report #: [id number] THIS REPORT FOR: cc: [facility] - Clinic physician unknown [facility] - Clinic physician unknown Reji Brooks MD [facility] THIS REPORT FOR: //name// [facility] ED Test Date: 2019-08-16 Test Time: 22:48:10 Pat Name: TERRI TAVAREZ Department: Room: [facility] Gender: F Assessment Nurse: KASSIDY : 1980 Requested By: Rufina Rossi Order Number: [id number] MD: Reji Brooks Measurements Intervals [place] Rate: 115 P: -32 MO: 162 QRS: 49 QRSD: 79 T: QT: 308 QTc: 426 Interpretive Statements Sinus tachycardia Nonspecific ST and T wave abnormality Baseline wander in lead(s) V5 Compared to ECG 07/19/2019 10:09:04 Nonspecific change in the ST and T wave segments Electronically Signed On 08-17-2019 8:12:44 CDT by Reji Brooks [email or web address] <ELECTRONICALLY SIGNED> By: Reji Brooks MD, [facility] 08/17/19 0812 2248 2248 Reji Brooks MD, FAC /EPI
[2019-08-17 08:31] LABS: HEMATOCRIT 25.3 % (37.0-47.0); MCH 28.6 pg (26.0-34.0); MCHC 33.2 g/dL (28.0-37.0); MCV 86.2 fL (80.0-100.0); RBC 2.93 mil/uL (4.20-5.00); RDW 19.7 % (10.5-14.5); WBC 12.5 thou/uL (4.0-11.0)
[2019-08-17 08:36] LABS: HEMOGLOBIN 8.4 gm/dL (12.0-15.0)
[2019-08-17 08:49] LABS: CALCIUM 8.5 mg/dL (8.5-10.1); CREATININE 10.9 mg/dL (0.6-1.0); POTASSIUM 3.6 mmol/L (3.5-5.1)
[2019-08-17 14:35] LABS: SOURCE PD FLUID
[2019-08-17 14:36] LABS: CLARITY SLIGHTLY CLOUDY; COLOR YELLOW
[2019-08-17 15:00] LABS: BF NUCLEATED CELLS 2534 /mm3; BF RBC 613 /mm3
[2019-08-17 15:37] LABS: BF MACROPHAGE 1 %; BF NEUTROPHILS 98 %
--- NOTE | 2019-08-17 17:05 | NUR ---
Chart reviewed and case opened to follow for dc planning. Pt is known to cm from recent admission one month ago. She lives with her spouse and children and is normally indep with a quad cane. She has a hx of LUPUS and ESRD with home peritoneal dialysis at night. She is on the home dialysis program through [facility]. Bedside visit deferred d/t enhanced iso/ r/o Covid testing. Will ask for therapy evals if weakness presists. Pt is being evaluated for peritonitis. The pt is disabled and has both medicare and or medicaid coverage in place. Will follow along should dc needs arise and fax dc summary to [facility] at [facility].
[2019-08-17 18:00] VITALS: BP 168/107
--- NOTE | 2019-08-17 18:21 | NUR ---
ASSUMED CARE OF PT AT 0700. PT AOX4, REPORTS ABDOMINAL AND BACK PAIN - WELL CONTROLLED WITH MORPHINE. REMAINS WEAK. PERITONEAL DIALYSIS SCHEDULED FOR TONIGHT. NOTIFIED ID OF NEGATIVE COVID RESULTS. WCM.
[2019-08-17 19:37] VITALS: BP 150/98
--- NOTE | 2019-08-17 19:44 | NUR ---
PT RESTING IN BED. PERITONEAL DIALYSIS INTACT. PT REPORTED FEELING DEHYDRATED BUT NAUSEAUS WHEN SHE TAKES ICE CHIPS. PT HAD ZOFRAN AT 1800. PT WATCHING TV, [facility] CONTACT SMILING. PT STATED SHE WILL TAKE HER AM IV ANTIBIOTIC ONCE HER TREATMENT IS DISCONNECTED.
--- NOTE | 2019-08-17 22:20 | NUR ---
PT HAVING GREEN EMESIS PROVIDER NOTIFIED AND PRN ORDER RECEIVED.
[2019-08-18 05:54] VITALS: BP 150/105
[2019-08-18 08:34] VITALS: BP 155/102
--- NOTE | 2019-08-18 14:48 | NUR ---
when medically stable dc home with spouse. pt did mention last time she was in hospital she was suppose to have home health and they never showed up. pt uses cane and wheel chair at home. when dc bedside nurse to fax dc orders to raheel león, fax # [phone], phone # [phone]. cm spoke with raheel león, provided update, pt is home peritoneal dialysis.
--- NOTE | 2019-08-18 15:23 | NUR ---
PT AOX4 IN NO ACUTE DISTRESS. PAIN WELL CONTROLLED WITH MORPHINE. VITALS STABLE. OK TO D/C ENHANCED PRECAUTIONS PER INFECTIOUS DISEASE - EMERGENCY MEDICAL TECH AWARE. . PD SCHEDULED FOR TONIGHT.
[2019-08-18 17:40] VITALS: BP 169/107
[2019-08-18 19:46] VITALS: BP 156/96
[2019-08-19 03:55] VITALS: BP 153/104
--- NOTE | 2019-08-19 06:11 | NUR ---
ASSESSMENT: PT REMAIN ALERT AND ORIENT TIMES FOUR. C/O ITCHING THIS AM, BENEDRYL ORDERED TIMES ONE, WILL REASSESS TO SEE IF ORDER NEEDS TO BE PRN PER PN Marco FINNEY, ANN. N/V HAS SUBSIDED. SR PER MONITOR. PERITONEL DIALYSIS CONTINUES. SLOW PROGRESS, WILL CONTINUE TO MONITOR.
[2019-08-19 07:46] VITALS: BP 138/92
[2019-08-19 11:11] VITALS: BP 138/92
[2019-08-19 16:48] VITALS: BP 141/92
[2019-08-19 20:00] VITALS: BP 131/88
[2019-08-19 23:29] VITALS: BP 121/84
--- NOTE | 2019-08-20 01:34 | NUR ---
PT DIALYSIS MACHINE BEEPING TRIED TROUBLESHOOTING UNSUCCESSFUL. DIALYSIS STAFF CONTACTED AT [phone] WHO GAVE A NUMBER TO CALL LEAVE A VOICE MAIL FOR A CALL BACK FROM STAFF. VM LEFT X2 AT [phone]. AWAITING CALL BACK AT THIS TIME
--- NOTE | 2019-08-20 05:45 | NUR ---
[facility] DIALYSIS STAFF TO ADDRESS PROBLEM WITH DIALSYIS MACHINE BEEPING. STATED HE HAS CONTACTED DR GORE ABOUT THE PROBLEM.
[2019-08-20 05:51] VITALS: BP 146/79
--- NOTE | 2019-08-20 05:53 | NUR ---
PT A&O X4 ABLE TO MAKE NEEDS KNOWN. C/O ABD PAIN X1 THIS SHIFT CONTROLLED VIA PRN PAIN MED. PT ON PD NIGHTLY. SBA WITH TRANSFERS. NO NEW ACUTE FINDINGS SO FAR THIS SHIFT.
[2019-08-20 06:51] LABS: ABSOLUTE NEUTROPHILS 2.7 thou/uL (1.4-8.2); BASOPHILS 0.6 % (0.0-2.0); EOSINOPHILS 1.6 % (0.0-3.0); HEMATOCRIT 23.2 % (37.0-47.0); HEMOGLOBIN 7.8 gm/dL (12.0-15.0); LYMPHOCYTES 31.8 % (24.0-44.0); MCH 29.2 pg (26.0-34.0); MCHC 33.8 g/dL (28.0-37.0); MCV 86.5 fL (80.0-100.0); MONOCYTES 11.7 % (1.0-8.0); POLYS 54.3 % (36.0-66.0); RBC 2.69 mil/uL (4.20-5.00); RDW 17.8 % (10.5-14.5); WBC 4.9 thou/uL (4.0-11.0)
[2019-08-20 06:53] LABS: PLATELET COUNT 386 thou/uL (150-400)
[2019-08-20 07:02] LABS: CALCIUM 8.9 mg/dL (8.5-10.1); MAGNESIUM 1.5 mg/dL (1.8-2.4)
[2019-08-20 07:03] LABS: CREATININE 9.3 mg/dL (0.6-1.0)
[2019-08-20 07:05] LABS: POTASSIUM 2.8 mmol/L (3.5-5.1)
[2019-08-20 08:45] VITALS: BP 127/88
[2019-08-20 12:03] VITALS: BP 113/78
--- NOTE | 2019-08-20 15:21 | NUR ---
PT ASSESSED AT START OF SHIFT. STATES SHE'S FEELING BETTER, NAUSEA MUCH BETTER AND TAKING CLEAR LIQUIDS. IN ON SCHEDULED ZOFRAN WHICH IS HELPING. POTASSIUM LOW AND NEW ORDER FOR PO REPLACEMENT BID. TAKING LIQUID CAN'T SWALLOW KDUR PILLS. ABD TENDER AROUND UMBILICUS. PD CATH SITE COVERERED W/ DSNG-NO DRAINAGE NOTED. STATES ONLY VOIDS ONCE A DAY AND JUST VOIDED SCANT AMT PER REPORT. NO BM THIS SHIFT. NEGATIVE COVID AND WILL TRANSFER TO ORTH AFTER REPORT GIVEN TO RN PRIOR TO TRANSFER.
--- NOTE | 2019-08-20 17:44 | NUR ---
PT ORIENTED TO ROOM AND UNIT, BED LOW AND LOCKED, SIDE RAILS UPX3, CALL LIGHT IN REACH, TELE APPLIED. WILL CONTINUE TO ASSESS.
[2019-08-20 21:30] VITALS: BP 102/67
[2019-08-21 02:32] VITALS: BP 105/70
--- NOTE | 2019-08-21 04:17 | NUR ---
CARE ASSUMED 1900. PT ALERT AND ORIENTED. DIALYSIS NURSE WAS SETTING UP HER DIALYSIS. PT VITALS STABLE. DENIES SOB. REPORTS MILD NAUSEA AND NO CHEST PAIN. MORPHINE GIVEN FOR HER CHRONIC HIP PAIN. PT CONCERN ABOUT HER DIET AND WOULD LIKE IT ADVANCED TO BE ABLE TO CONSUME EVEN MASHED POTATOES. DENIES OTHER CONCERNS. WILL CONTINUE TO FOLLOW POC.
[2019-08-21 07:10] VITALS: BP 107/66
--- NOTE | 2019-08-21 07:53 | NUR ---
ASSUMED CARE OF PT AT SHIFT CHANGE, A&0X4, NIGHTLY PERITONEAL DIALYSIS, ASKING FOR MORE THAN CL DIET, GAVE HER WATER, OFFERED BROTH; DECLINED. PAIN IN BOB HIPS, SEE SEPARATE INTERVENTIONS FOR ASSESSMENTS. ELECTROLYTES OFF, SENT COMM TO WHO'D JUST ORDERED A CURRENT LAB DRAW. REPORTS OF NAUSEA OVERNIGHT. WILL CONTINUE TO MONITOR. ENCOURAGED HER TO USE CALL LIGHT FOR ANY NEEDS
[2019-08-21 11:00] VITALS: BP 89/59
[2019-08-21 11:12] LABS: HEMATOCRIT 24.8 % (37.0-47.0); HEMOGLOBIN 8.2 gm/dL (12.0-15.0)
[2019-08-21 11:35] LABS: CALCIUM 9.2 mg/dL (8.5-10.1); CREATININE 9.5 mg/dL (0.6-1.0); POTASSIUM 3.7 mmol/L (3.5-5.1)
[2019-08-21 20:41] VITALS: BP 101/65
[2019-08-22] VITALS (9 sets, daily range): BP systolic 94–131; BP diastolic 7–90
--- NOTE | 2019-08-22 03:17 | NUR ---
PT ALERT AND ORIENTED. DIALYSIS OVERNIGHT. HIP PAIN REPORTED MORPHINE X1. SOFT BP, BP MEDICATIONS HELD, HR STABLE. ANTICIPATES TO DC TODAY, THIS MORNING. NO OTHER CONCERNS. WILL CONTINUE TO FOLLOW POC.
[2019-08-22] MEDS ORDERED: CLONIDINE HCL0.1 MG PO (08:53)
--- NOTE | 2019-08-22 16:44 | NUR ---
PT CARE ASSUMED AT 0700. ASSESSMENTS CHARTED. MEDICATION CHAERTED. PT RT HAND IV D/C'D DUE TO PHLEBITIS. PERITONEAL DIALYSIS LAST NIGHT. SBA WITH CANE. PT DISCHARGED TO HOME AT 1630. TELEMETRY D/C'D. IV D/C'D.
== END 2019-08-22 16:43 | disposition home or self-care (01) | DRG 919 ==
LOC: ER 22:13 → EROBS 08-17 01:55 → 3W 08-17 01:55 → 2N 08-20 17:32
PROVIDERS: Hospitalist; Nurse Practitioner Family; Student in an Organized Health Care Education/Training Program; ADMIT Internal Medicine; ATTEND Internal Medicine
PROC: 3E1M39Z Irrigation of Peritoneal Cavity using Dialysate, Percutaneous Approach (ICD-10-PCS; principal; 2019-08-17)
PROC: 3E1M39Z Irrigation of Peritoneal Cavity using Dialysate, Percutaneous Approach (ICD-10-PCS; 2019-08-18)
PROC: 3E1M39Z Irrigation of Peritoneal Cavity using Dialysate, Percutaneous Approach (ICD-10-PCS; 2019-08-19)
PROC: 3E1M39Z Irrigation of Peritoneal Cavity using Dialysate, Percutaneous Approach (ICD-10-PCS; 2019-08-20)
PROC: 3E1M39Z Irrigation of Peritoneal Cavity using Dialysate, Percutaneous Approach (ICD-10-PCS; 2019-08-21)
DX: T85.71XA Infection and inflammatory reaction due to peritoneal dialysis catheter, initial encounter (principal); A41.89 Other specified sepsis; N18.6 End stage renal disease; G92 Toxic encephalopathy; K65.2 Spontaneous bacterial peritonitis; I13.2 Hypertensive heart and chronic kidney disease with heart failure and with stage 5 chronic kidney disease, or end stage renal disease; M87.851 Other osteonecrosis, right femur; M87.852 Other osteonecrosis, left femur; R18.8 Other ascites; Z20.828 Contact with and (suspected) exposure to other viral communicable diseases; G89.29 Other chronic pain; M54.9 Dorsalgia, unspecified; M32.9 Systemic lupus erythematosus, unspecified; B95.8 Unspecified staphylococcus as the cause of diseases classified elsewhere; I50.9 Heart failure, unspecified; E87.6 Hypokalemia; D63.8 Anemia in other chronic diseases classified elsewhere; K29.70 Gastritis, unspecified, without bleeding; Y84.8 Other medical procedures as the cause of abnormal reaction of the patient, or of later complication, without mention of misadventure at the time of the procedure; M32.14 Glomerular disease in systemic lupus erythematosus; J44.9 Chronic obstructive pulmonary disease, unspecified; Z99.2 Dependence on renal dialysis; Z11.59 Encounter for screening for other viral diseases; Z79.899 Other long term (current) drug therapy; Z91.048 Other nonmedicinal substance allergy status; Y92.89 Other specified places as the place of occurrence of the external cause; Z91.15 Patient's noncompliance with renal dialysis
CPT/HCPCS: 10081; 10879; 33000

== ENCOUNTER 2019-09-25 23:34 | Emergency (ER) | payer OTHER ==
[~2019-09-25] VITALS: Ht 162.6 cm; Wt 55.3 kg
[~2019-09-25 23:34] MED LIST changes: +RENAL-VITE TAB0.8 MG PO
[2019-09-26 00:21] LABS: ABSOLUTE NEUTROPHILS 5.1 thou/uL (1.4-8.2); BASOPHILS 0.4 % (0.0-2.0); EOSINOPHILS 0.6 % (0.0-3.0); HEMATOCRIT 36.5 % (37.0-47.0); HEMOGLOBIN 12.2 gm/dL (12.0-15.0); LYMPHOCYTES 24.1 % (24.0-44.0); MCH 27.6 pg (26.0-34.0); MCHC 33.5 g/dL (28.0-37.0); MCV 82.4 fL (80.0-100.0); MONOCYTES 11.2 % (1.0-8.0); PLATELET COUNT 345 thou/uL (150-400); POLYS 63.7 % (36.0-66.0); RBC 4.43 mil/uL (4.20-5.00); RDW 16.1 % (10.5-14.5)
[2019-09-26 00:37] LABS: CALCIUM 8.6 mg/dL (8.5-10.1); CREATININE 11.4 mg/dL (0.6-1.0); TROPONIN-I 0.08 ng/mL (<0.06)
[2019-09-26 00:39] LABS: POTASSIUM 2.5 mmol/L (3.5-5.1)
[2019-09-26 01:27] VITALS: BP 151/98
--- NOTE | 2019-09-26 08:50 | EKG ---
[facility] [place] [address] ELECTROCARDIOGRAM REPORT Name: EMILY TAVAREZTERRI CLEMENT Room #: DEP [facility]#: [id number] Admission: 09/25/19 Attend Phys: Discharge: 09/26/19 Date of : 78 Report #: [id number] THIS REPORT FOR: cc: [facility] - Clinic physician unknown [facility] - Clinic physician unknown Reji Brooks MD [facility] ~ THIS REPORT FOR: //name// [facility] ED Test Date: 2019-09-25 Test Time: 23:52:26 Pat Name: TERRI TAVAREZ Department: Room: Gender: Predator Control 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
== END 2019-09-26 01:27 | disposition home or self-care (01) ==
LOC: ER 23:34
PROVIDERS: Emergency Medicine
DX: R07.9 Chest pain, unspecified (principal); M54.5 Low back pain; E87.6 Hypokalemia; J44.9 Chronic obstructive pulmonary disease, unspecified; I12.9 Hypertensive chronic kidney disease with stage 1 through stage 4 chronic kidney disease, or unspecified chronic kidney disease; N18.9 Chronic kidney disease, unspecified; Z79.899 Other long term (current) drug therapy; Z88.8 Allergy status to other drugs, medicaments and biological substances

== ENCOUNTER 2019-09-28 14:51 | Emergency (ER) | payer OTHER ==
[~2019-09-28] VITALS: Ht 162.6 cm; Wt 55.3 kg
[2019-09-28] MEDS ORDERED: NORCO 10-325 T1 EACH PO (19:15)
[2019-09-28 19:38] VITALS: BP 155/101
== END 2019-09-28 19:43 ==
LOC: ER 14:51
DX: M87.851 Other osteonecrosis, right femur (principal); J44.9 Chronic obstructive pulmonary disease, unspecified; I12.9 Hypertensive chronic kidney disease with stage 1 through stage 4 chronic kidney disease, or unspecified chronic kidney disease; N18.9 Chronic kidney disease, unspecified; Z79.899 Other long term (current) drug therapy; Z88.8 Allergy status to other drugs, medicaments and biological substances

== ENCOUNTER 2019-10-21 11:47 | Emergency (ER) | payer OTHER ==
[~2019-10-21] VITALS: Ht 160 cm; Wt 55.8 kg
[~2019-10-21 11:47] MED LIST changes: +NORCO 10-325 T1 EACH PO
[2019-10-21 13:42] LABS: ANION GAP 11 mmol/L (7-16); BUN 23 mg/dL (7-18); CHLORIDE 95 mmol/L (98-107); CO2 34 mmol/L (21-32); CREATININE 9.2 mg/dL (0.6-1.0); GLUCOSE 95 mg/dL (74-106); POTASSIUM 4.2 mmol/L (3.5-5.1); SODIUM 140 mmol/L (136-145)
[2019-10-21 13:52] LABS: ALBUMIN 2.8 g/dL (3.4-5.0); LIPASE 412 U/L (73-393); MAGNESIUM 2.3 mg/dL (1.8-2.4); SGOT 33 U/L (15-37); SGPT 43 U/L (30-65); TOTAL BILIRUBIN 0.5 mg/dL (0.2-1.0); TROPONIN-I <0.06 ng/mL (<0.06)
[2019-10-21 14:44] LABS: ABSOLUTE NEUTROPHILS 3.3 thou/uL (1.4-8.2); BASOPHILS 0.8 % (0.0-2.0); HEMOGLOBIN 11.9 gm/dL (12.0-15.0)
[2019-10-21 14:45] LABS: EOSINOPHILS 0.6 % (0.0-3.0); HEMATOCRIT 36.7 % (37.0-47.0); LYMPHOCYTES 27.3 % (24.0-44.0); MCH 26.5 pg (26.0-34.0); MCHC 32.5 g/dL (28.0-37.0); MCV 81.4 fL (80.0-100.0); MONOCYTES 10.9 % (1.0-8.0); PLATELET COUNT 333 thou/uL (150-400); POLYS 60.4 % (36.0-66.0); RDW 18.1 % (10.5-14.5); WBC 5.4 thou/uL (4.0-11.0)
[2019-10-21 15:25] LABS: ANISOCYTOSIS 1+
--- NOTE | 2019-10-21 15:27 | EKG ---
[facility] [place] [address] ELECTROCARDIOGRAM REPORT Name: TERRI VALLADARES Room #: [facility].#: [id number] Admission: 10/21/19 Attend Phys: Discharge: Date of : 78 Report #: [id number] THIS REPORT FOR: cc: [facility] - Clinic physician unknown [facility] - Clinic physician unknown Bharathi Landon MD 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: [facility] : 1980 Requested By: Asif Moralez Order Number: [id number] MD: Bharathi Landon Measurements Intervals [place] Rate: 121 P: [place]: QRS: 34 QRSD: 66 T: 95 QT: 325 QTc: 461 Interpretive Statements Artifact, suspect sinus rhythm Probable LVH with secondary repol abnrm Compared to ECG 09/25/2019 23:52:26 ST (T wave) deviation no longer present Electronically Signed On 10-21-2019 15:27:50 CDT by Bharathi Landon [email or web address] <ELECTRONICALLY SIGNED> By: Bharathi Landon MD, [facility] 10/21/19 1527 1155 [id number] Bharathi Landon MD, [facility] /EPI
[2019-10-21] MEDS ORDERED: NORCO 10-325 T1 EACH PO (15:39)
[2019-10-21 18:12] VITALS: BP 179/118
== END 2019-10-21 18:24 | disposition home or self-care (01) ==
LOC: ER 11:47
PROVIDERS: Emergency Medicine
DX: R07.89 Other chest pain (principal); F41.9 Anxiety disorder, unspecified; R11.2 Nausea with vomiting, unspecified; F11.23 Opioid dependence with withdrawal; M32.9 Systemic lupus erythematosus, unspecified; M79.10 Myalgia, unspecified site; G89.29 Other chronic pain; M25.551 Pain in right hip; J44.9 Chronic obstructive pulmonary disease, unspecified; I10 Essential (primary) hypertension; Z79.899 Other long term (current) drug therapy; Z88.8 Allergy status to other drugs, medicaments and biological substances

== ENCOUNTER 2019-11-08 21:19 | Emergency (ER) | payer OTHER ==
[~2019-11-08] VITALS: Ht 160 cm; Wt 55.3 kg
[2019-11-08] MEDS ORDERED: NORCO 5-325 TA1 EAC2 PO (21:54)
[2019-11-08 22:07] VITALS: BP 146/101
== END 2019-11-08 22:13 | disposition home or self-care (01) ==
LOC: ER 21:19
DX: M87.851 Other osteonecrosis, right femur (principal); J44.9 Chronic obstructive pulmonary disease, unspecified; I12.9 Hypertensive chronic kidney disease with stage 1 through stage 4 chronic kidney disease, or unspecified chronic kidney disease; N18.9 Chronic kidney disease, unspecified; Z79.899 Other long term (current) drug therapy; Z88.8 Allergy status to other drugs, medicaments and biological substances

== ENCOUNTER 2019-12-07 18:16 | Inpatient (IN) | payer OTHER ==
[~2019-12-07] VITALS: Ht 162.6 cm; Wt 53.9 kg
[~2019-12-07 18:16] MED LIST changes: +NORCO 5-325 TA1 EAC2 PO
[2019-12-07 18:29] VITALS: BP 130/98
[2019-12-07 19:47] LABS: ABSOLUTE NEUTROPHILS 7.9 thou/uL (1.4-8.2); BASOPHILS 1.1 % (0.0-2.0); EOSINOPHILS 0.1 % (0.0-3.0); LYMPHOCYTES 15.1 % (24.0-44.0); MCH 27.2 pg (26.0-34.0); MCHC 33.8 g/dL (28.0-37.0); MCV 80.7 fL (80.0-100.0); MONOCYTES 10.4 % (1.0-8.0); PLATELET COUNT 642 thou/uL (150-400); POLYS 73.3 % (36.0-66.0); RBC 2.28 mil/uL (4.20-5.00); RDW 17.8 % (10.5-14.5); WBC 10.8 thou/uL (4.0-11.0)
[2019-12-07 19:50] LABS: HEMATOCRIT 18.4 % (37.0-47.0); HEMOGLOBIN 6.2 gm/dL (12.0-15.0)
[2019-12-07 20:11] LABS: ALBUMIN 1.5 g/dL (3.4-5.0); CALCIUM 9.4 mg/dL (8.5-10.1); CREATININE 10.2 mg/dL (0.6-1.0); TOTAL BILIRUBIN 0.4 mg/dL (0.2-1.0)
[2019-12-07 20:13] LABS: POTASSIUM 2.7 mmol/L (3.5-5.1)
[2019-12-07] MEDS ORDERED: PROCHLORPERAZINE5 M2 PO (20:23)
[2019-12-07] MEDS ORDERED: FLEXERIL PO (20:23)
[2019-12-07] MEDS ORDERED: REGLAN 5 MG TAB5 MG PO (20:25)
[2019-12-07] MEDS ORDERED: ASA81BEC PO (20:25)
[2019-12-07 21:54] VITALS: BP 163/112
--- NOTE | 2019-12-07 21:54 | NUR ---
HAND OFF TOOL SENT TO CCU AT THIS TIME
[2019-12-07 22:35] VITALS: BP 168/110
[2019-12-07 23:09] VITALS: BP 172/108
[2019-12-07 23:58] VITALS: BP 172/109; BP 176/111
--- NOTE | 2019-12-08 02:14 | NUR ---
PATIENT TRANSFERRED FROM ED AT APPROXIMATELY 2250. ADMISSION HX/ASSESSMENT COMPLETED. PATIENT C/O PAIN 8/10 IN RIGHT HIP. PATIENT HAD RECEIVED PRN MORPHINE IN ED. BEGAN TRANSFUSION OF 1 UNIT RBCs ORDERED. PATIENT APPEARS TO BE TOLERATING TRANSFUSION WELL. WILL CONTINUE TO MONITOR.
[2019-12-08 03:19] VITALS: BP 187/125
[2019-12-08] MEDS ORDERED: LOSARTAN POTAS100 MG PO (04:38)
[2019-12-08] MEDS ORDERED: METOCLOPRAMIDE 55 M1 PO (04:39)
[2019-12-08] MEDS ORDERED: MELOXICAM7.5 MG PO (04:39)
[2019-12-08] MEDS ORDERED: CYCLOBENZAPRINE5 MG PO (04:40)
[2019-12-08] MEDS ORDERED: AMLODIPINE BESY10 MG PO (04:40)
[2019-12-08] MEDS ORDERED: CLONIDINE HCL0.1 MG PO (04:40)
[2019-12-08] MEDS ORDERED: LOSARTAN POTASS50 MG PO (04:41)
[2019-12-08] MEDS ORDERED: LOPRESSOR50 PO (04:41)
[2019-12-08] MEDS ORDERED: HYDROXYCHLOROQ200 M1 PO (04:41)
[2019-12-08] MEDS ORDERED: PREDNISONE 5 MG5 M1 PO (04:51)
[2019-12-08] MEDS ORDERED: PROTONIX40 M2 PO (04:51)
[2019-12-08] MEDS ORDERED: POTASSIUM20 PO (04:51)
[2019-12-08] MEDS ORDERED: RENAL-VITE TAB0.8 MG PO (04:53)
[2019-12-08] MEDS ORDERED: CELLCEPT500 MG PO (05:00)
[2019-12-08 05:43] LABS: HEMATOCRIT 24.3 % (37.0-47.0); HEMOGLOBIN 8.1 gm/dL (12.0-15.0); MCH 27.3 pg (26.0-34.0); MCHC 33.4 g/dL (28.0-37.0); MCV 81.6 fL (80.0-100.0); RBC 2.98 mil/uL (4.20-5.00); WBC 10.5 thou/uL (4.0-11.0)
[2019-12-08 08:18] LABS: % SATURATION 52 % (20-39); IRON 50 ug/dL (50-170); TIBC 96 ug/dL (250-450)
[2019-12-08 10:05] LABS: ABSOLUTE RETIC COUNT 0.0495 10^6/uL; OBSERVED RETIC COUNT 1.67 % (0.6-2.6)
[2019-12-08 17:59] VITALS: BP 128/84
[2019-12-08 19:36] VITALS: BP 126/86
[2019-12-09 02:55] LABS: ALBUMIN 1.2 g/dL (3.4-5.0); CALCIUM 9.1 mg/dL (8.5-10.1); CREATININE 10.1 mg/dL (0.6-1.0); PHOSPHORUS 5.5 mg/dL (2.5-4.9)
[2019-12-09 04:11] VITALS: BP 132/87
--- NOTE | 2019-12-09 06:00 | NUR ---
PATIENT IS PROGRESSING SLOWLY IN HER CARE PLAN. VITAL SIGNS STABLE WITH PATIENT HAVING NO COMPLAINTS OF NAUSEA. PATIENT DID COMPLAIN OF PAIN IN LEFT HIP WHICH WAS TREATED APPROPRIATELY THROUGH MEDICATION. PATIENT HAD PERITONEAL DIALYSIS DURING SHIFT WHICH COMPLETED COMPUTER PUBLISHER. PATIENT SLEPT MOST OF SHIFT. CONTINUE PLAN OF CARE.
[2019-12-09 08:00] VITALS: BP 145/88
[2019-12-09 11:36] VITALS: BP 121/70
--- NOTE | 2019-12-09 15:18 | NUR ---
Met with patient who admits with nausea/vomiting. She reports feeling better today. She is A/Ox4. Patient resides in home with spouse and children. She lives in [facility] with flight of steps. She reports no difficulty with steps. She uses a walker. She reports she does have a PCP. She has hx of lupus and pertineal dialysis home program through [facility]. She has medicare/caid. She aniticipates no dc needs once stable. [facility] following if need therapy evals or home health care.
[2019-12-09 16:40] VITALS: BP 117/67
--- NOTE | 2019-12-09 17:36 | NUR ---
ASSSESSMENT CHARTED - MEDS PER APR - NO CO'S OF PAIN OR NAUSEA. PT WITH FLAT AFFECT - EATING SMALL AMOUNT OF DIET - STATES SHE DOES NOT LIKE THE FOOD HERE. HAS BEEN RESTING IN BED THIS AFTERNOON. PT TO HAVE DIALYSIS THIS EVEING. NO CO'S AT THE PRESENT TIME.
[2019-12-09 19:30] VITALS: BP 112/70
[2019-12-10 00:17] VITALS: BP 125/79
[2019-12-10 04:00] VITALS: BP 131/85
--- NOTE | 2019-12-10 06:09 | NUR ---
assessments as charted, sr on the monitor, denies chest pain or sob, meds given as per mar, vss, denied having concerns, will pass on report
[2019-12-10 07:30] VITALS: BP 137/82
[2019-12-10 11:11] LABS: ABSOLUTE NEUTROPHILS 6.2 thou/uL (1.4-8.2); BASOPHILS 0.6 % (0.0-2.0); EOSINOPHILS 0.2 % (0.0-3.0); HEMATOCRIT 24.9 % (37.0-47.0); HEMOGLOBIN 8.4 gm/dL (12.0-15.0); LYMPHOCYTES 20.4 % (24.0-44.0); MCH 27.9 pg (26.0-34.0); MCHC 33.6 g/dL (28.0-37.0); MCV 82.9 fL (80.0-100.0); MONOCYTES 8.2 % (1.0-8.0); PLATELET COUNT 489 thou/uL (150-400); POLYS 70.6 % (36.0-66.0); RBC 3.01 mil/uL (4.20-5.00); RDW 17.4 % (10.5-14.5); WBC 8.8 thou/uL (4.0-11.0)
[2019-12-10 11:36] LABS: ALBUMIN 1.4 g/dL (3.4-5.0); ANION GAP 11 mmol/L (7-16); BUN 35 mg/dL (7-18); CALCIUM 9.3 mg/dL (8.5-10.1); CHLORIDE 98 mmol/L (98-107); CO2 28 mmol/L (21-32); CREATININE 10.4 mg/dL (0.6-1.0); GLUCOSE 102 mg/dL (74-106); POTASSIUM 4.5 mmol/L (3.5-5.1); SGOT 21 U/L (15-37); SODIUM 137 mmol/L (136-145); TOTAL BILIRUBIN 0.3 mg/dL (0.2-1.0); TOTAL PROTEIN 5.9 g/dL (6.4-8.2)
[2019-12-10 11:49] LABS: SGPT < 6 U/L (30-65)
[2019-12-10 12:32] VITALS: BP 124/77
[2019-12-10 15:10] VITALS: BP 129/75
[2019-12-10] MEDS ORDERED: AMLODIPINE BESY10 MG PO (17:04)
[2019-12-10] MEDS ORDERED: MIRALAX17 GM PO (17:05)
[2019-12-10] MEDS ORDERED: COLACE 100 MG100 MG PO (17:05)
[2019-12-10] MEDS ORDERED: RENVELA800 MG PO (17:05)
[2019-12-10] MEDS ORDERED: METOCLOPRAMIDE 55 M1 PO (17:06)
--- NOTE | 2019-12-10 17:27 | NUR ---
RECEIVED PT'S CARE AROUND 0720; PT. ON BED; RESTING WITH EYES CLOSED; SLEEP INTERRUPTED; ALERT; DURING AM ASSESSMENT PT. AOX4; NO C/O PAIN; EDUCATED ABOUT THE IMPORTANCE OF TAKING SCHEDULE STOOL SOFTNER & LAXATIVE; ST. UNDERSTANDING; EDUCATED ABOUT FALL PRECAUTIONS; ST. UNDERSTANDING; REMAINED ABOUT CONTROL FLUID INTAKE; ST. UNDERSTANDING; SR ON THE MONITOR; NO LABS; PHYSICIAN NOTIFIED DURING ROUNDING; ORDERS ON PLACED; HH ABOVE 7; PHYSICIAN NOTIFIED; PER PHYSICIAN PT. ABLE TO GO HOME; PT. AGREED; ASSESSMENT CHARGED; FOLLOWING POC; WORKING ON D/C ORDERS;
[2019-12-10 17:31] VITALS: BP 129/75
== END 2019-12-10 17:55 | disposition home or self-care (01) | DRG 811 ==
LOC: ER 18:16 → 2N 21:15 → EROBS 21:15 → 2N 22:35
PROVIDERS: Emergency Medicine; Internal Medicine; Nurse Practitioner Family; ADMIT Hospitalist; ATTEND Hospitalist
PROC: 30233H1 Transfusion of Nonautologous Whole Blood into Peripheral Vein, Percutaneous Approach (ICD-10-PCS; principal; 2019-12-07)
PROC: 3E1M39Z Irrigation of Peritoneal Cavity using Dialysate, Percutaneous Approach (ICD-10-PCS; 2019-12-08)
PROC: 3E1M39Z Irrigation of Peritoneal Cavity using Dialysate, Percutaneous Approach (ICD-10-PCS; 2019-12-09)
PROC: 3E1M39Z Irrigation of Peritoneal Cavity using Dialysate, Percutaneous Approach (ICD-10-PCS; 2019-12-10)
DX: D50.0 Iron deficiency anemia secondary to blood loss (chronic) (principal); N18.6 End stage renal disease; E43 Unspecified severe protein-calorie malnutrition; I13.2 Hypertensive heart and chronic kidney disease with heart failure and with stage 5 chronic kidney disease, or end stage renal disease; R18.8 Other ascites; K59.03 Drug induced constipation; J44.9 Chronic obstructive pulmonary disease, unspecified; I16.0 Hypertensive urgency; M32.9 Systemic lupus erythematosus, unspecified; I50.9 Heart failure, unspecified; E87.6 Hypokalemia; T40.2X5A Adverse effect of other opioids, initial encounter; Z96.643 Presence of artificial hip joint, bilateral; Z79.82 Long term (current) use of aspirin; Z99.2 Dependence on renal dialysis; Z79.899 Other long term (current) drug therapy; Z88.8 Allergy status to other drugs, medicaments and biological substances; Z91.14 Patient's other noncompliance with medication regimen; Z98.891 History of uterine scar from previous surgery; Y92.89 Other specified places as the place of occurrence of the external cause; Z28.21 Immunization not carried out because of patient refusal
CPT/HCPCS: 10081; 33000

== ENCOUNTER 2020-01-07 10:21 | Inpatient (IN) | payer OTHER ==
[~2020-01-07] VITALS: Ht 162.6 cm; Wt 48.1 kg
--- NOTE | ~2020-01-07 | O ---
[facility] [place] [address] OPERATIVE REPORT Name: EMILY TAVAREZTERRI Room #: 215-P ADM IN M.R.#: [id number] Admission: 01/09/20 Attend Phys: Nevaeh Anderson MD Discharge: Date of : 78 Report #: [id number] THIS REPORT FOR: cc: [facility] - Family physician unknown FAM - Family physician unknown Jesus Kelly MD ~ CC: Alexey Sadler [facility] unknown Nevaeh Anderson DATE OF SERVICE: 01/11/2020 PREOPERATIVE DIAGNOSIS: End-stage renal disease. POSTOPERATIVE DIAGNOSIS: End-stage renal disease. OPERATION: 1. Diagnostic laparoscopy. 2. Removal of tunneled intraperitoneal catheter. SURGEON: Jesus Kelly MD ANESTHESIA: General. ESTIMATED BLOOD LOSS: Minimal. SPECIMEN: Tip for culture and sensitivity. DESCRIPTION OF PROCEDURE: After informed consent was obtained, the patient was brought to the operating room and placed supine. SCDs were placed and working, preoperative antibiotics were administered, general anesthesia was induced. The abdomen was prepped and draped in the usual sterile fashion. A 5 mm incision was made in the left upper quadrant. A 5 mm trocar was placed under direct vision. Pneumoperitoneum was established. I was able to visualize the catheter in the abdomen. I made a midline incision right over the previous incision for the internal cuff. Cautery dissection was made down to the fascia. The cuff was freed up with cautery and removed from the abdomen. This was done under direct vision with laparoscopy. The external cuff site was palpated. I made a 1 cm counter incision. Cautery dissection was made down and the cuff was freed up. The catheter was then removed easily. The tip was sent for culture. The skin was then closed with 4-0 Monocryl. Incisions were dressed with [facility] [address] [place] [address] OPERATIVE REPORT Name: TERRI VALLADARES Room #: 215-P [facility]#: [id number] Admission: 01/09/20 Attend Phys: Nevaeh Anderson MD Discharge: Date of : 78 Report #: [id number] Steri-Strips and gauze. Sterile dressings were applied. COMPLICATIONS: None. DISPOSITION: The patient was taken to recovery in satisfactory condition. By: 1622 1636 Jesus Kelly MD /nt
[~2020-01-07 10:21] MED LIST changes: +ASA81BEC PO; +COLACE 100 MG100 MG PO; +CYCLOBENZAPRINE5 MG PO; +FLEXERIL PO; +HYDROXYCHLOROQ200 M1 PO; +LOSARTAN POTAS100 MG PO; +LOSARTAN POTASS50 MG PO; +MELOXICAM7.5 MG PO; +METOCLOPRAMIDE 55 M1 PO; +POTASSIUM20 PO; +PREDNISONE 5 MG5 M1 PO; +PROCHLORPERAZINE5 M2 PO; +REGLAN 5 MG TAB5 MG PO; +RENVELA800 MG PO
[2020-01-07 10:22] VITALS: BP 105/73
[2020-01-07 10:56] LABS: ABSOLUTE NEUTROPHILS 4.7 thou/uL (1.4-8.2); EOSINOPHILS 1.2 % (0.0-3.0); HEMATOCRIT 21.8 % (37.0-47.0); HEMOGLOBIN 7.5 gm/dL (12.0-15.0); LYMPHOCYTES 35.5 % (24.0-44.0); MCH 27.5 pg (26.0-34.0); MCHC 34.4 g/dL (28.0-37.0); MCV 79.9 fL (80.0-100.0); MONOCYTES 9.8 % (1.0-8.0); PLATELET COUNT 513 thou/uL (150-400); POLYS 52.5 % (36.0-66.0); RBC 2.73 mil/uL (4.20-5.00); RDW 14.9 % (10.5-14.5); WBC 8.9 thou/uL (4.0-11.0)
[2020-01-07 11:22] LABS: ALBUMIN 1.8 g/dL (3.4-5.0); CALCIUM 9.6 mg/dL (8.5-10.1); CREATININE 10.2 mg/dL (0.6-1.0); TOTAL BILIRUBIN 0.3 mg/dL (0.2-1.0); TOTAL PROTEIN 6.8 g/dL (6.4-8.2)
[2020-01-07 11:25] LABS: POTASSIUM 2.1 mmol/L (3.5-5.1)
--- NOTE | 2020-01-07 13:50 | NUR ---
PER NOEMY, AT APPROX 1240 SHE STATES NOT TO GIVE ABT THERAPY YET SO THEY CAN DRAW FLUID FROM PT ABD.
--- NOTE | 2020-01-07 17:06 | NUR ---
FIRST ATTEMPT AT REPORT. NURSE TO BE BACK FROM LUNCH IN APPROX 10 MINS
[2020-01-07 17:14] VITALS: BP 127/80
[2020-01-07 18:24] VITALS: BP 142/74
[2020-01-07 18:36] VITALS: BP 181/128
--- NOTE | 2020-01-07 18:54 | NUR ---
PT ARRIVED TO UNIT FROM ER AT APPROX 1830. PT ALERT, VSS. DENIES PAIN AT THIS TIME. TELEMETRY PUT ON. PT EDUCATED CORE EXTRUDER LIGHT. CONTINUING MONITORING AND POC. WILL PASS REPORT ONTO NOC RN.
[2020-01-07 19:58] LABS: CALCIUM 8.8 mg/dL (8.5-10.1); CREATININE 9.4 mg/dL (0.6-1.0); MAGNESIUM 2.1 mg/dL (1.8-2.4); PHOSPHORUS 4.5 mg/dL (2.5-4.9)
[2020-01-07 20:02] LABS: POTASSIUM 2.2 mmol/L (3.5-5.1)
[2020-01-07 20:09] LABS: HEMATOCRIT 18.6 % (37.0-47.0); HEMOGLOBIN 6.4 gm/dL (12.0-15.0)
--- NOTE | 2020-01-07 21:48 | NUR ---
ADMISSION NOTE: ALERT AND ORIENTED X4. SHE IS HAVING CHRONIC BACK PAIN THAT SHE CANNOT TAKE ANYTHING BY MOUTH AT THIS TIME. SHE IS HAVING NAUSEA. RECIEVED ORDER FOR 5O MCQ FENTANYL Q 4 X4 DOSES ONLY. HER HEMOGLOBIN IS LOW AND THE PLAN IS TO GIVE HER ONE UNIT PRBC'S TONIGHT.
[2020-01-08] VITALS (17 sets, daily range): BP systolic 118–197; BP diastolic 30–141
--- NOTE | 2020-01-08 04:54 | NUR ---
REFUSED TO TAKE THE PO POTASSIUM. SHE DID GET HER IV POTASSIUM ORDERED. SHE IS NAUSEAOUS AND UNCOMFOARTABLE. BLOOD PRESSURE IS VERY ELEVATED AND SHE FEELS CHILLED WITH A NORMAL TEMPERATURE.
--- NOTE | 2020-01-08 05:16 | NUR ---
PT IS REFUSING HER MORNING LABS TO BE DRAWN. SHE IS WANTING MORE PAIN MEDICATION AND MORE NAUSEA MEDICATION. EVERYTHING HAS BEEN GIVEN AT THIS TIME. I HAVE REASSURED HER THAT HER RENAL DOCTOR WILL SEE HER THIS MORNING. SHE DOES NOT FEEL GOOD.
--- NOTE | 2020-01-08 07:37 | NUR ---
0625 RECIEVED FROM 3W PER WHEELCHAIR. COMPLAINTS OF GENERALIZED PAIN AND PAIN MEDICATION GIVEN. ORIENTED TO ROOM. CONTINUE TO ASSES CLOSELY. TELEMTRY ON AND SHOWS ST 115.
[2020-01-08 08:05] LABS: BASOPHILS 0.3 % (0.0-2.0); EOSINOPHILS 0.4 % (0.0-3.0); HEMATOCRIT 23.9 % (37.0-47.0); HEMOGLOBIN 8.2 gm/dL (12.0-15.0); LYMPHOCYTES 5.7 % (24.0-44.0); MCH 27.5 pg (26.0-34.0); MCHC 34.3 g/dL (28.0-37.0); MONOCYTES 8.8 % (1.0-8.0); POLYS 84.8 % (36.0-66.0); RBC 2.98 mil/uL (4.20-5.00); RDW 15.9 % (10.5-14.5); WBC 9.4 thou/uL (4.0-11.0)
[2020-01-08 08:08] LABS: PLATELET COUNT 310 thou/uL (150-400)
[2020-01-08 08:14] LABS: ALBUMIN 1.4 g/dL (3.4-5.0); CALCIUM 8.6 mg/dL (8.5-10.1); CREATININE 9.9 mg/dL (0.6-1.0); MAGNESIUM 1.9 mg/dL (1.8-2.4); PHOSPHORUS 4.8 mg/dL (2.5-4.9); TOTAL BILIRUBIN 0.4 mg/dL (0.2-1.0); TOTAL PROTEIN 5.4 g/dL (6.4-8.2)
[2020-01-08 08:20] LABS: POTASSIUM 2.5 mmol/L (3.5-5.1)
--- NOTE | 2020-01-08 16:55 | NUR ---
ASSUMMED PT CARE AT APPROXIMATELY 0700. PT A&O X4. ASSESSMENT CHARTED. FALL PRECAUTIONS IN PLACE. PT DENIES HAVING CHEST PAIN. PT DENIES HAVING SOB. PT STATED SHE HAD NAUSEA AND ABDOMINAL PAIN. PT RECEIVED ANALGESICS. PT STATED ANALGESICS HELPED RELEIVE PAIN. PT BP AND HR ELEVATED. INFORMED DR. DING. NEW ORDERS RECEIVED AND IMPLEMENTED. HR STABLE. WILL CONTINUE TO MONITOR BP. CARDENE DRIP STARTED. PT VOMITED X1 TODAY. INFORMED DR. DING. NEW ORDERS RECEIVED AND IMPLEMENTED. PT COMFORTABLE IN BED. PT DENIES HAVING FURTHER CONCERNS. ENCOURAGED PT TO EAT AND DRINK. PT HAS POOR APPETITE. EDUCATED PT ABOUT POC. PT STATED UNDERSTANDING AND DENIED HAVING FURTHER CONCERNS.
[2020-01-09] VITALS (8 sets, daily range): BP systolic 102–136; BP diastolic 54–84
--- NOTE | 2020-01-09 03:19 | NUR ---
BP WITHIN NORMAL.NAUSEATED,ZOFRAN GIVEN.POOR APPETITE.DENIES PAIN.MONITOR SHOWS SR.POSSIBLE SHUNT PLACEMENT TOMORROW.POC CONTINUED.
[2020-01-09 04:06] LABS: HEMOGLOBIN 7.1 gm/dL (12.0-15.0); MCH 27.2 pg (26.0-34.0); MCV 80.1 fL (80.0-100.0); RBC 2.62 mil/uL (4.20-5.00); RDW 15.9 % (10.5-14.5)
[2020-01-09 04:10] LABS: INR 1.1; PROTIME 11.5 Seconds (9.3-11.4)
[2020-01-09 04:14] LABS: CALCIUM 8.4 mg/dL (8.5-10.1)
[2020-01-09 04:18] LABS: CREATININE 10.9 mg/dL (0.6-1.0); POTASSIUM 2.7 mmol/L (3.5-5.1)
--- NOTE | 2020-01-09 07:09 | EKG ---
[facility] [place] [address] ELECTROCARDIOGRAM REPORT Name: TERRI VALLADARES Room #: 215-P ADM IN M.R.#: [id number] Admission: 01/09/20 Attend Phys: Nevaeh Anderson MD Discharge: Date of : 78 Report #: [id number] THIS REPORT FOR: cc: FAM - Family physician unknown FAM - Family physician unknown Bharathi Landon MD [facility] ~ THIS REPORT FOR: //name// [facility] ED Test Date: 2020-01-07 Test Time: 11:01:05 Pat Name: TERRI TAVAREZ Department: Room: 215 Gender: F Card Cleaner: THALIA : 1980 Requested By: Saleem Randall Order Number: [id number] MD: Bharathi Landon Measurements Intervals [place] Rate: 109 P: 104 DC: 185 QRS: 44 QRSD: 72 T: QT: 302 QTc: 407 Interpretive Statements Sinus tachycardia Probable LVH with secondary repol abnrm Baseline wander in lead(s) V1 Compared to ECG 10/21/2019 11:55:45 Sinus rhythm no longer present Electronically Signed On 01-09-2020 7:09:26 KEYSEATER OPERATOR by Bharathi Landon [email or web address] <ELECTRONICALLY SIGNED> By: Bharathi Landon MD, FACC 01/09/20 0709 00 00 Bharathi aLndon MD, FAC /EPI
--- NOTE | 2020-01-09 15:19 | NUR ---
ASSESSMENT: CM REVIEWED CHART. PT WAS ADMITTED DUE TO HAVING EPIGASTRIC PAIN NAUSEA/VOMITTING AND WAS GETTING PERITONEAL DIALYSIS THROUGH [facility]. PT REPORTS LIVING IN A SECOND STORY APT WITH HER AND CHILDREN. PT REPORTS ABOUT 16 STEPS WITH HANDRAILS TO ENTER. PT REPORTS SHE HAS A CANE AND WALKER AT HOME IF NEEDED. PT REPORTS SHE DOES NOT WORK. PT GOT A TUNNELED CATHETER PLACED AND IS NOW NEEDING HEMODIALYSIS. CM MET WITH PT AND SHE PREFERS TO CONTINUE TO [facility]. CM REACHED OUT TO [facility] AND SPOKE WITH [facility]. CM FAXED CLINICAL INFORMATION TO [facility] WHO STATES THEY WILL REVIEW AND ATTEMPT TO SET PATIENT UP. CLINICAL INFORMATION FAXED TO [facility] [phone]. PENDING HEB B SURFACE ANTIGEN WAS FAXED BUT RESULT WILL NEED TO BE SENT TO THEM. IF PT DISCHARGES IN THE NEXT 1-2DAYS THE NEGATIVE COVID TEST FROM 01/06 WILL WORK HOWEVER IF PT STAYS MUCH LONGER THEY MAY REQUEST A NEW ONE. ON ADMISSION PTS HEMOGLOBIN WAS LOW AND SHE RECEIVED TRANSUFSION. GI CONTINUES TO FOLLOW PT. CM WILL CONTINUE TO FOLLOW TO ASSIST NEEDED.
--- NOTE | 2020-01-09 19:42 | NUR ---
ASSESSMENT CHARTED. PT ALERT AND ORIENTED. HAD DIALYSIS TODAY. NO CONCERNS AT THIS TIME.
[2020-01-10 05:00] VITALS: BP 137/92
[2020-01-10 06:05] LABS: HEMATOCRIT 20.8 % (37.0-47.0); HEMOGLOBIN 7.1 gm/dL (12.0-15.0); MCH 27.6 pg (26.0-34.0); MCHC 34.2 g/dL (28.0-37.0); MCV 80.7 fL (80.0-100.0); RBC 2.58 mil/uL (4.20-5.00); RDW 16.1 % (10.5-14.5)
[2020-01-10 06:30] LABS: CALCIUM 7.8 mg/dL (8.5-10.1); CREATININE 4.5 mg/dL (0.6-1.0); POTASSIUM 3.1 mmol/L (3.5-5.1)
[2020-01-10 07:01] LABS: HEPATITIS B SURFACE AG Negative (Negative)
--- NOTE | 2020-01-10 07:09 | NUR ---
BPCI LETTER ISSUED TO PATIENT AND OR ADMISSION PACKET
--- NOTE | 2020-01-10 07:46 | NUR ---
Patients cares were assumed at shift change. patient was informed at the start of this shift the the doctor refueses to give anymore pain meds and will not consider any IV pain meds. This patient slept most of this shift. After our inital incounter she had no request. The bed is in a low and locked position.
[2020-01-10 10:56] VITALS: BP 137/85
--- NOTE | 2020-01-10 14:04 | NUR ---
Sp with [facility] their clinical equine manager unavailable today. THey will have a chair time tomorrow. Faxed clinical information.
--- NOTE | 2020-01-10 18:07 | NUR ---
PT ASSESSED AT START OF SHIFT. FEELING SOME BETTER- STARTED EATING MORE. NO C/O NAUSEA. PT PLANNING TO HAVE PERITONEAL CATHETER SURGICALLY REMOVED TOMORROW PER DR. PALMER. PLAN FOR DIALYIS WELL.
[2020-01-10 19:07] VITALS: BP 124/747
[2020-01-10 19:08] VITALS: BP 128/73
[2020-01-10 19:28] VITALS: BP 125/88
[2020-01-11] VITALS (7 sets, daily range): BP systolic 131–165; BP diastolic 83–94
--- NOTE | 2020-01-11 06:30 | NUR ---
ASSUMED PATIENT CARE AT 1845. VITAL SIGNS STABLE WITH PATIENT HAVING NO COMPLAINTS OF NAUSEA. PATIENT DID COMPLAIN ONCE OF ABDOMINAL PAIN AND WAS TREATED APPROPRIATELY THROUGH MEDICATION. NO PROBLEMS BREATHING NOTED BY ASSESSMENTS AND SPOT OXYGENATION CHECKS. PATIENT IS FULLY ALERT AND ORIENTED AND CALLS APPROPRIATELY FOR NEEDS. SHE HAS BEEN KEPT NPO FROM MIDNIGHT ON IN ANTICIPATION OF TODAYS PROCEDURE. CONTINUE PLAN OF CARE.
--- NOTE | 2020-01-11 07:49 | HC ---
[facility] [place] [address] CONSULTATION Name: TERRI VALLADARES Room #: 215-P ADM IN M.R.#: [id number] Admission: 01/09/20 Attend Phys: Nevaeh Anderson MD Discharge: Date of : 78 Report #: [id number] THIS REPORT FOR: cc: FAM - Family physician unknown FAM - Family physician unknown Alexey Sadler MD ~ REASON FOR CONSULTATION: End-stage renal disease. REASON FOR PRESENTATION: Persistent nausea and vomiting. HISTORY OF PRESENT ILLNESS: This is a very well-known patient to me. She is an extremely noncompliant, end-stage renal disease patient, maintained on peritoneal dialysis. She presented reporting persistent nausea and vomiting and inability to do her dialysis at home. Unfortunately, the patient has had recurrent admissions for a similar presentation. Extensive workup has been done and everything had been negative. She was admitted to further evaluate her ongoing issues. I was consulted to manage her end-stage renal disease. The patient tells me that she is not wanting to do any more peritoneal dialysis and she wants to switch to hemodialysis. PAST MEDICAL HISTORY: 1. Lupus. 2. End-stage renal disease, maintained on peritoneal dialysis. 3. Avascular necrosis of the right hip, post right hip replacement. MEDICATIONS: 1. Amlodipine. 2. Sevelamer. 3. Pantoprazole. 4. Hydroxychloroquine. 5. CellCept. 6. Aspirin. ALLERGIES: IODINE. SOCIAL HISTORY: No drug or alcohol abuse. REVIEW OF SYSTEMS: GENERAL: No fever or chills, but significant weakness. CARDIOVASCULAR: No chest pain or palpitation. PULMONARY: No cough or hemoptysis. GASTROINTESTINAL: As per the history of present illness. FAMILY HISTORY: Significant for hypertension. [facility] [address] [address] CONSULTATION Name: TERRI VALLADARES Room #: 215-P [facility] IN M.R.#: [id number] Admission: 01/09/20 Attend Phys: Nevaeh Anderson MD Discharge: Date of : 78 Report #: [id number] PHYSICAL EXAMINATION: VITAL SIGNS: Temperature 36.8, blood pressure 160/100. Pulse rate is 109. HEAD AND NECK: No jugular venous distention. CHEST: No crackles. CARDIOVASCULAR: No rub. ABDOMEN: Soft with a PD catheter in place. EXTREMITIES: Lower extremities, no edema. LABORATORY VALUES: Hemoglobin was 6.4. Sodium 138, potassium 2.2, BUN is 21, creatinine is 9.1. ASSESSMENT, IMPRESSION AND PLAN: 1. End-stage renal disease. 2. Anemia. 3. Extreme noncompliance. 4. The patient now tells me that she does not want to do peritoneal dialysis anymore. I will ask IR to place a tunneled dialysis catheter and initiate the patient on hemodialysis. 5. Replace potassium. 6. Post-transfusion. 7. GI evaluation. 8. We will continue to follow. <ELECTRONICALLY SIGNED> By: Alexey Sadler MD 01/11/20 0749 9 1927 Alexey Sadler MD /nt
[2020-01-11 09:13] LABS: HEMATOCRIT 22.6 % (37.0-47.0); HEMOGLOBIN 7.6 gm/dL (12.0-15.0)
[2020-01-11] MEDS ORDERED: PROTONIX40 M2 PO (11:48)
[2020-01-11] MEDS ORDERED: FERROUS FUMARA324 MG PO (11:48)
[2020-01-11] MEDS ORDERED: PREDNISONE 5 MG5 M1 PO (11:48)
[2020-01-11] MEDS ORDERED: ZOFRAN 4 MG ORAL4 MG PO (13:31)
--- NOTE | 2020-01-11 16:05 | NUR ---
FAXED DC ORDERS/SUMMARY TO [facility] RECEIVED CONFIRMATION.
--- NOTE | 2020-01-11 18:30 | NUR ---
PT NPO FOR OR THIS AFTERNOON. HAD DIALYSIS FIRST AND RECEIVED ONE BAG KCL AND RECHECKED LEVEL AT 3.5 ONE HOUR POST DIALYSIS. PT WENT LATE TO OR AND RETURNED AT 1800 ALERT [address] V[address] DOBBINS NOTIFIED REC RM RN REPORTED TEMP 99.5. ORDERS TO GIVE IV ROCEPHIN PT DID NOT RECEIVE EARLIER BECAUSE OF DIALYSIS AND CALL BACK IF STILL W/ TEMP. ABD LAP SITES DRY AND INTACT. PD SITE W/ DERMABOND.
--- NOTE | 2020-01-11 18:42 | NUR ---
Outpt dialysis arrangement in place and coordinated with [facility] and the pt. Pt aware of the holiday schedule. No other needs noted.
--- NOTE | 2020-01-12 03:16 | NUR ---
ASSUMED PATIENT CARE AT 1845. VITAL SIGNS STABLE WITH PATIENT HAVING NO COMPLAINTS OF NAUSEA. PATIENT DID COMPLAIN OF ABDOMINAL PAIN WHICH WAS TREATED APPROPRIATELY THROUGH MEDICATIONS. PATIENT IS POST OP TO REMOVE PD CATHETER. SURGICAL LAP SITES C/D/I. PATIENT IS FULLY ALERT AND ORIENTED AND CALLS APPROPRIATELY FOR NEEDS. BREATHING STABLE ON ROOM AIR EVIDENCED BY ASSESSMENTS AND SPOT OXYGENATION CHECKS. UP WITH ASSISTANCE INCIDENT FREE. POSSIBLE DISCHARGE TODAY. CONTINUE PLAN OF CARE.
[2020-01-12 04:29] VITALS: BP 129/85
[2020-01-12 07:45] VITALS: BP 127/80
[2020-01-12 11:20] VITALS: BP 114/78
[2020-01-12 11:45] VITALS: BP 134/88
[2020-01-12 12:00] VITALS: BP 134/88
[2020-01-12] MEDS ORDERED: PREDNISONE 1 MG1 M1 PO (12:35)
--- NOTE | 2020-01-12 12:56 | NUR ---
PT CARE ASSUMED AT 0700. ASSESSMENTS CHARTED. MEDICATION CHARTED. SHRAVAN IV. RT CHEST TESSIO PLACED 01/10. ANURIC. NORMAL SINUS RHYTHM. HEMODIALYSIS MWF. PT TO BE DISCHARGED HOME. TELEMETRY D/C'D. IV D/C'D. DISCHARGE PAPERWORK SIGNED.
== END 2020-01-12 12:39 | disposition home or self-care (01) | DRG 853 ==
LOC: ER 10:21 → 2N 12:59 → EROBS 12:59 → 3W 18:24 → 2N 01-08 06:19
PROVIDERS: Hospitalist; Physician Assistant; ADMIT Internal Medicine; ATTEND Internal Medicine
PROC: B5181ZA Fluoroscopy of Superior Vena Cava using Low Osmolar Contrast, Guidance (ICD-10-PCS; principal; 2020-01-09)
PROC: 0JH63XZ Insertion of Tunneled Vascular Access Device into Chest Subcutaneous Tissue and Fascia, Percutaneous Approach (ICD-10-PCS; principal; 2020-01-09)
PROC: 02HV33Z Insertion of Infusion Device into Superior Vena Cava, Percutaneous Approach (ICD-10-PCS; principal; 2020-01-09)
PROC: 0WPG43Z Removal of Infusion Device from Peritoneal Cavity, Percutaneous Endoscopic Approach (ICD-10-PCS; 2020-01-11)
DX: A41.9 Sepsis, unspecified organism (principal); N18.6 End stage renal disease; K65.9 Peritonitis, unspecified; E43 Unspecified severe protein-calorie malnutrition; E87.2 Acidosis; I12.0 Hypertensive chronic kidney disease with stage 5 chronic kidney disease or end stage renal disease; R18.8 Other ascites; Z68.1 Body mass index [BMI] 19.9 or less, adult; E87.6 Hypokalemia; E83.42 Hypomagnesemia; R65.20 Severe sepsis without septic shock; D64.9 Anemia, unspecified; E86.0 Dehydration; Z60.2 Problems related to living alone; M32.9 Systemic lupus erythematosus, unspecified; Z96.641 Presence of right artificial hip joint; J44.9 Chronic obstructive pulmonary disease, unspecified; I16.0 Hypertensive urgency; Z79.899 Other long term (current) drug therapy; Z20.828 Contact with and (suspected) exposure to other viral communicable diseases
CPT/HCPCS: 10081; 10879; 32100; 50010; 50101; 50411; 50445; 50555; 52265; 56525; 56526; 62110; 62900; 70005

== ENCOUNTER 2020-01-28 10:19 | Inpatient (IN) | payer OTHER ==
[~2020-01-28] VITALS: Ht 162.6 cm; Wt 46.3 kg
[~2020-01-28 10:19] MED LIST changes: +FERROUS FUMARA324 MG PO; +PREDNISONE 1 MG1 M1 PO
[2020-01-28 10:35] VITALS: BP 150/106
[2020-01-28 11:55] LABS: ABSOLUTE NEUTROPHILS 8.1 thou/uL (1.4-8.2); BASOPHILS 0.6 % (0.0-2.0); EOSINOPHILS 0.1 % (0.0-3.0); HEMOGLOBIN 9.1 gm/dL (12.0-15.0); LYMPHOCYTES 15.2 % (24.0-44.0); MCHC 32.3 g/dL (28.0-37.0); MCV 83.6 fL (80.0-100.0); MONOCYTES 8.8 % (1.0-8.0); PLATELET COUNT 604 thou/uL (150-400); POLYS 75.3 % (36.0-66.0); RBC 3.35 mil/uL (4.20-5.00); RDW 16.8 % (10.5-14.5); WBC 10.8 thou/uL (4.0-11.0)
[2020-01-28 11:58] LABS: ANION GAP 15 mmol/L (7-16); BUN 6 mg/dL (7-18); CALCIUM 9.7 mg/dL (8.5-10.1); CHLORIDE 97 mmol/L (98-107); CO2 26 mmol/L (21-32); CREATININE 3.2 mg/dL (0.6-1.0); GLUCOSE 67 mg/dL (74-106); POTASSIUM 3.4 mmol/L (3.5-5.1); SODIUM 138 mmol/L (136-145)
[2020-01-28 12:09] LABS: ALBUMIN 1.6 g/dL (3.4-5.0); DIRECT BILIRUBIN < 0.1 mg/dL (<0.1-0.2); LIPASE 833 U/L (73-393); SGOT 22 U/L (15-37); SGPT 9 U/L (30-65); TOTAL BILIRUBIN 0.4 mg/dL (0.2-1.0); TOTAL PROTEIN 6.7 g/dL (6.4-8.2); TROPONIN-I <0.06 ng/mL (<0.06)
--- NOTE | 2020-01-28 15:01 | NUR ---
RETURNED FROM [facility]
[2020-01-28 16:35] LABS: INR 1.1; PROTIME 11.4 Seconds (9.3-11.4)
--- NOTE | 2020-01-28 17:45 | NUR ---
APTT RESULTS REPORTED TO HOSPITALIST AND PHARMACY CONFIRMED OK TO GIVE BOLUS AT THIS TIME, TO REPEAT X 3 Q HR
--- NOTE | 2020-01-28 21:29 | NUR ---
HEPARIN DRIP INCREASED BY 2UNITS/KG/HR PER PHARMACY. HOLDING BOLUS
[2020-01-29] VITALS (8 sets, daily range): BP systolic 127–160; BP diastolic 82–106
--- NOTE | 2020-01-29 06:54 | NUR ---
0230 ARRIVED FROM ER PER CART. ASSISTED TO BED. PATIENT WEAK AND STATES CANNOT WALK VERY WELL. PATIENT ANURIC AND IS DIALYSIS PATIENT. ON HEPARIN GTT PER PROTOCOL. ADMISSION PROCESS COMPLETED. 0600 SLEPT PAST ADMISSION. DENIES COMPLAINTS OF PAIN AT THIS TIME. TURNS SELF WITHOUT ASSIST. WORKING ON GOALS AND PLAN OF CARE FOR NOC. CONTINUE TO DALTON BARNES.
[2020-01-29 13:23] LABS: ALBUMIN 1.2 g/dL (3.4-5.0); DIRECT BILIRUBIN < 0.1 mg/dL (<0.1-0.2); SGOT 14 U/L (15-37); SGPT 7 U/L (30-65); TOTAL BILIRUBIN 0.3 mg/dL (0.2-1.0); TOTAL PROTEIN 5.6 g/dL (6.4-8.2)
--- NOTE | 2020-01-29 19:34 | NUR ---
ASSUMED CARE OF PT AT SHIFT CHANGE. ASSESSMENTS CHARTED. MEDS GIVEN PER APR. PT A&OX4, NO C/O PAIN. NPO TIL 2PM, RECIEVED A DINNER TRAY. ON HEPARIN DRIP, FOLLOWING HEP PROTOCOL, DOCUMENTED ON HEP FLOW SHEET. PLAN FOR MRI IN MORNING. WILL CONTINUE TO MONITOR AND FOLLOW POC.
[2020-01-29] MEDS ORDERED: CYCLOBENZAPRINE5 MG PO ×2 (19:50)
[2020-01-29] MEDS ORDERED: HYDROCODON-ACE1 EAC7 PO ×2 (19:51)
[2020-01-30 04:17] VITALS: BP 142/90
[2020-01-30 04:26] LABS: ALBUMIN 1.2 g/dL (3.4-5.0); CALCIUM 8.9 mg/dL (8.5-10.1); DIRECT BILIRUBIN < 0.1 mg/dL (<0.1-0.2); PHOSPHORUS 4.1 mg/dL (2.5-4.9); POTASSIUM 4.3 mmol/L (3.5-5.1); SGOT 19 U/L (15-37); SGPT 10 U/L (30-65); TOTAL BILIRUBIN 0.2 mg/dL (0.2-1.0); TOTAL PROTEIN 5.5 g/dL (6.4-8.2)
[2020-01-30 04:27] LABS: CREATININE 5.4 mg/dL (0.6-1.0)
--- NOTE | 2020-01-30 05:12 | NUR ---
PATIENT SLEPT THROUGH MOST OF THE NIGHT. A&OX4. MEDICATIONS GIVEN PER MAR. PAIN MEDICATION GIVEN PER APR. PT ON HEPARIN GTTS PER PROTOCOL. DIALYSIS AND MRI TODAY. CONTINUING TO ASSESS CLOSELY ACCORDING TO POC.
[2020-01-30 09:40] VITALS: BP 135/93
--- NOTE | 2020-01-30 10:32 | 2DMMODE ---
[facility] [place] [address] 2 D/M-MODE ECHOCARDIOGRAM Name: TERRI VALLADARES Room #: 208-P ADM IN M.R.#: [id number] Admission: 01/28/20 Attend Phys: Kin Birmingham MD Discharge: Date of : 78 Report #: [id number] THIS REPORT FOR: cc: FAM - Family physician unknown FAM - Family physician unknown Bharathi Landon MD [facility] ~ APPROVED REPORT Study performed: 01/30/2020 09:09:10 EXAM: Comprehensive 2D, Doppler, and color-flow Echocardiogram Patient Location: Bedside Room #: 208 Status: routine BSA: 1.47 Indications Pulmonary Embolism Pulmonary Hypertension Dyspnea Hypertension/HDD 2D Dimensions RVDd: 26.48 mm IVSd: 12.63 (7-11mm) LVOT Diam: 18.05 (18-24mm) LVDd: 39.61 mm PWd: 12.22 (7-11mm) Ascending Ao: 30.42 (22-36mm) LVDs: 27.87 (25-40mm) Aortic Root: 31.37 mm IVC: 16.00 mm Volumes Left Atrial Volume (Systole) Single Plane 4CH: 26.22 mL Single Plane 2CH: 21.45 mL LA ESV Index: 19.00 mL/m2 Aortic Valve AoV Peak Barber.: 1.22 m/s AO Peak Gr.: 5.97 mmHg LVOT Max P.78 mmHg LVOT Max V: 1.09 m/s FRIDA Vmax: 2.29 cm2 Mitral Valve E/A Ratio: 0.8 [facility] [address] [place] [address] 2 D/M-MODE ECHOCARDIOGRAM Name: TERRI VALLADARES Room #: 208-P [facility]#: [id number] Admission: 01/28/20 Attend Phys: Kin Birmingham, Discharge: Date of : 78 Report #: [id number] MV Decel. Time: 273.26 ms MV E Max Barber.: 0.75 m/s MV A Barber.: 0.97 m/s MV PHT: 79.25 ms IVRT: 143.02 ms Pulmonary Valve PV Peak Barber.: 0.83 m/s PV Peak Gr.: 2.73 mmHg Pulmonary Vein P Vein S: 0.51 m/s P Vein A: 0.28 m/s P Vein D: 0.29 m/s P Vein A Dur.: 87.7 msec P Vein S/D Ratio: 1.76 Left Ventricle The left ventricle is normal size. There is normal LV segmental wall motion. Mild concentric left ventricular hypertrophy. The left ventricular systolic function is normal. The left ventricular ejection fraction is within the normal range. LVEF is 55-60%. Grade I - abnormal relaxation pattern. Right Ventricle The right ventricle is normal size. The right ventricular systolic function is normal. Atria The left atrium size is normal. The right atrium size is normal. Aortic Valve The aortic valve is normal in structure. No aortic regurgitation is present. There is no aortic valvular stenosis. Mitral Valve The mitral valve is normal in structure. There is no mitral valve regurgitation noted. No evidence of mitral valve stenosis. Tricuspid Valve The tricuspid valve is normal in structure. There is no tricuspid valve regurgitation noted. Pulmonic Valve The pulmonary valve is normal in structure. There is no pulmonic valvular regurgitation. [employer] [facility] [address] [place] [address] 2 D/M-MODE ECHOCARDIOGRAM Name: EMILYLUKAS VERATAVAREZTERRI CLEMENT Room #: 208-P ADM IN M.R.#: [id number] Admission: 01/28/20 Attend Phys: Kin Birmingham, Discharge: Date of : 78 Report #: [id number] The aortic root is normal in size. IVC is normal in size and collapses >50% with inspiration. Pericardium There is no pericardial effusion. <Conclusion> Normal left ventricle size Mild to moderate concentric hypertrophy EF 60% Grade 1 diastolic dysfunction Normal right ventricular size/function Normal atrial size Normal aortic/mitral valve structure/function No tricuspid valve insufficiency No pericardial effusion <ELECTRONICALLY SIGNED> By: Bharathi Landon MD, [facility] 01/30/20 1031 D: [id number] 103 Bharathi Landon MD, FACC /INF
[2020-01-30 15:20] VITALS: BP 133/96
--- NOTE | 2020-01-30 16:01 | NUR ---
Met with patient who is familiar to caset. She admits with n/v. She resides at home with spouse and children in independent apt. She has flight of steps to [facility] [place] with railing. She dializes at [facility] MWF 6am. She reports her spouse takes her to dialysis and she gets a ride home. She has no PCP. She is interested in home health care. Patient reports she uses a walker for ambulation. [facility]gt following for dc planning.
[2020-01-30 20:01] VITALS: BP 124/83
--- NOTE | 2020-01-30 20:08 | NUR ---
UNEVENTFUL DAY FOR THIS PLEASANT BUT UNFORTUNATE, CHRONIC PATIENT. DIALYSIS DELAYED UNTIL TOMORROW. NPO AT BREAKFAST FOR MRCP BUT WAS GIVEN LUNCH, SO NPO AFTER MIDNIGHT AND MRCP TOMORROW. SR PER TELE. HEPARIN DRIP ORDERED.
[2020-01-31] VITALS (13 sets, daily range): BP systolic 116–134; BP diastolic 76–92
[2020-01-31 05:00] LABS: HEMATOCRIT 26.4 % (37.0-47.0); HEMOGLOBIN 8.4 gm/dL (12.0-15.0); MCH 27.4 pg (26.0-34.0); MCV 85.5 fL (80.0-100.0); RBC 3.08 mil/uL (4.20-5.00); RDW 17.2 % (10.5-14.5); WBC 8.1 thou/uL (4.0-11.0)
--- NOTE | 2020-01-31 05:45 | NUR ---
PATIENT SLEPT THROUGH MOST THE NIGHT. A&OX4. HEPERIN GTTS; FOLLOWING PROTOCOL. MEDICATIONS GIVEN PER EMAR. FALL PRECAUTIONS IN PLACE. CONTINUING TO ASSESS ACCORDING TO POC.
--- NOTE | 2020-01-31 11:19 | NUR ---
AAOX4. BUSY DAY FOR THIS PATIENT. MRCP, DIALYSIS AND LAP CHOLY. HEPARIN DRIP STOPPED AT 0830 PER SURGEON'S ORDER. SR PER TELE. WILL CONTINUE TO FOLLOW.
[2020-01-31 16:46] LABS: HEMATOCRIT 27.8 % (37.0-47.0); HEMOGLOBIN 8.8 gm/dL (12.0-15.0); MCH 26.7 pg (26.0-34.0); MCHC 31.8 g/dL (28.0-37.0); RBC 3.31 mil/uL (4.20-5.00); RDW 16.6 % (10.5-14.5); WBC 7.2 thou/uL (4.0-11.0)
--- NOTE | 2020-01-31 18:34 | NUR ---
BACK FROM [facility] AT 1615. REPORT FROM JAK COFFMAN. VSS, MEDICATED FOR ABD PAIN ORDERED. LAP SITES WITH [facility]. SR PER TELE.
[2020-02-01 00:15] VITALS: BP 126/94
--- NOTE | 2020-02-01 07:11 | NUR ---
PATIENT CARES WERE ASSUMED AT SHIFT CHANGE. PATIENT WAS ASSESSED AND MEDS WERE PASSED. ON ASSESSMENT PATIENT REPORTED BEING VERY PAINFUL. PACU FLOW SHEET SHOWED 150 MAQ OF FENTANYL WAS GIVEN FROM 1600 TO 1900. WITH CAUTION AND REGARD PLACED A WARM BLANKET ON ABDOMIN, GAVE PAIN MED WITH SPACE BETWEEN THE FENTANYL. PATIENT ALSO REQUESTED TO TAKE MEDS LATER THEN SCHEDULED DUE TO NOT FEELING WELL AT THE TIME. HOURLY ROUNDS WERE DONE. PATIENT HAD AN UNEVENTFUL NIGHT.THE BED IS IN THE LOW AND LOCK POSITION.
[2020-02-01 07:43] VITALS: BP 117/82
--- NOTE | 2020-02-01 08:06 | HC ---
[facility] [place] [address] CONSULTATION Name: EMILY TAVAREZTERRI Room #: 208-P ADM IN M.R.#: [id number] Admission: 01/28/20 Attend Phys: Kin Birmingham MD Discharge: Date of : 78 Report #: [id number] THIS REPORT FOR: cc: FAM - Family physician unknown FAM - Family physician unknown Emmett Johnston MD ~ DATE OF SERVICE: 01/29/2020 HISTORY OF PRESENT ILLNESS: The patient is a 39-year-old female with end-stage renal disease, on hemodialysis. She was seen through the Emergency Room yesterday for chest pain as well as nausea and vomiting and abdominal pain, which was primarily midepigastric and periumbilical. She was noted to have elevated D-dimer and underwent a CT scan of her chest, which showed peripheral bilateral lower lobe pulmonary emboli, bilateral pleural effusions were also noted as well as abdominal ascites. Of note, the patient previously was on peritoneal dialysis, but had her peritoneal dialysis catheter removed recently. She was also noted to have an elevated lipase consistent with pancreatitis, no previous history. An ultrasound of the abdomen was also performed, which showed sludge within the gallbladder and a calculus versus sludge ball in the neck of the gallbladder, atrophic kidneys were noted. There is some perihepatic ascites, bilateral pleural effusions also noted. The entire pancreas was not visualized. The portions that were seen were grossly unremarkable. The liver showed no focal hepatic lesions. There was no evidence of biliary ductal dilation. The patient reports no history of alcohol use. Her abdominal pain has improved today. She has been started on heparin drip for her pulmonary emboli. She currently denies any fevers or chills. No chest pain or shortness of breath currently. No cough or sputum. COVID testing was negative yesterday. Her PTT today this morning was 82.9. PAST MEDICAL HISTORY: End-stage renal disease, previously on peritoneal dialysis, now on hemodialysis; history of lupus, hypertension, COPD, anemia of chronic disease, bilateral hip avascular necrosis, previous right hip replacement. ALLERGIES: IODINE. REVIEW OF SYSTEMS: As per HPI. MEDICATIONS: On admission, prednisone 5 mg b.i.d., Protonix on a daily basis. Iron, Zofran p.r.n., amlodipine, Renvela, Colace, MiraLax, and Reglan p.r.n. FAMILY HISTORY: Negative for colon cancer. SOCIAL HISTORY: She denies any tobacco or alcohol use. [address] [address] CONSULTATION Name: TERRI VALLADARES Room #: 208-P [facility] IN [facility]#: [id number] Admission: 01/28/20 Attend Phys: Kin Birmingham MD Discharge: Date of : 78 Report #: [id number] PHYSICAL EXAMINATION: VITAL SIGNS: Temperature is 36.5, blood pressure is 145/94, pulse 83, respiratory rate is 16. GENERAL: She is alert and oriented x 3, in no acute distress. HEENT: Sclerae nonicteric. Oropharynx clear. NECK: Supple, without lymphadenopathy. CARDIOVASCULAR: Regular rate and rhythm. CHEST: With slight decreased breath sounds bilaterally. ABDOMEN: Soft. She is mildly tender to palpation in the midepigastrium and periumbilical region. Nondistended. Normoactive bowel sounds. EXTREMITIES: No cyanosis, clubbing or edema. LABORATORY DATA: Yesterday, WBC is 10.8, hemoglobin 9.1, platelet count is 604,000. Sodium 138, potassium 3.4, chloride 97, bicarbonate 26, BUN 6, creatinine 3.2, glucose 67, total bilirubin 0.4, AST 22, ALT 9, alkaline phosphatase 143. Troponin less than 0.06. Total protein 6.7, albumin 1.6, lipase 833. ASSESSMENT AND PLAN: Pancreatitis, suspect due to gallstone pancreatitis. Ultrasound showing stones and sludge within the gallbladder. The common bile duct is not dilated at this time. Her bilirubin is normal. The patient has no history of alcohol use. I would recommend proceeding with an MRCP tomorrow to further evaluate the common bile duct. If there is evidence of choledocholithiasis, need to consider ERCP at that point. I agree with laparoscopic cholecystectomy. Surgery is following. Obviously, the patient having acute pulmonary emboli requiring heparin drip complicates timing of surgery as well. We will repeat liver function tests and lipase tomorrow. Thank you for allowing me to participate in her care. <ELECTRONICALLY SIGNED> By: Emmett Johnston MD 02/01/20 0806 1201 2355 Emmett Johnston MD /nt
[2020-02-01 11:13] VITALS: BP 110/77
--- NOTE | 2020-02-01 15:26 | NUR ---
ASSUMED CARE PT SHIFT CHANGE. ASSESSMENT CHARTED.MEDS GIVEN PER APR.PT ALERT AND ORIENTED.VSS.C/O ABDOMINAL PAIN MANAGED WITH PO AND IV MEDS. DIALYSIS THIS SHIFT. DIALYSIS STAFF CURRENTLY IN ROOM WITH PT. O2 SATS WNL ON RA. ABD SITES WITH [facility]. CARE PASSED ONTO NANCY BENEDICT AT APPROX 1530.
[2020-02-01 16:02] VITALS: BP 126/89
--- NOTE | 2020-02-01 18:27 | NUR ---
ASSUMED PT AT 1600. PT IS POST LAP/SIDNEY. COMPLETED HEAD TO TOE ASSESSMENT. PT HAS 4 AB SITES. DRESSINGS CLEAN, DRY, AND INTACT. PRN PAIN MED GIVEN WITH NO RELIEF. FALL PRECAUTIONS IN PLACE.
[2020-02-01 19:26] VITALS: BP 120/81
[2020-02-02 04:08] VITALS: BP 113/75
[2020-02-02 08:10] VITALS: BP 124/92
[2020-02-02] MEDS ORDERED: ELIQUIS5 MG PO ×2 (09:15)
[2020-02-02] MEDS ORDERED: HYDROCODON-ACE1 EAC7 PO ×2 (09:15)
--- NOTE | 2020-02-02 09:56 | NUR ---
PT RESTING QUIETLY AFTER PAIN MEDS GIVEN FOR INCISIONAL PAIN, VSS, DIALYSIS WAS DONE YESTERDAY, HOPES TO GO HOME TODAY, REPORT GIVEN TO NEXT SHIFT WILL CON'T MONITOR PER PPOC.
[2020-02-02 11:04] VITALS: BP 120/76
--- NOTE | 2020-02-02 11:04 | O ---
[facility] [place] [address] OPERATIVE REPORT Name: TERRI VALLADARES Room #: 208-P ADM IN M.R.#: [id number] Admission: 01/28/20 Attend Phys: Kin Birmingham MD Discharge: Date of : 78 Report #: [id number] THIS REPORT FOR: cc: FAM - Family physician unknown FAM - Family physician unknown Jesus Kelly MD ~ DATE OF SERVICE: 01/31/2020 PREOPERATIVE DIAGNOSIS: Acute cholecystitis. POSTOPERATIVE DIAGNOSIS: Acute cholecystitis. OPERATION: Laparoscopic cholecystectomy. SURGEON: Jesus Kelly MD ANESTHESIA: General. ESTIMATED BLOOD LOSS: Minimal. SPECIMEN: Gallbladder. DESCRIPTION OF PROCEDURE: After informed consent was obtained, the patient was brought to the operating room and placed supine. SCDs were placed and working, preoperative antibiotics were administered, general anesthesia was induced. The abdomen was prepped and draped in usual sterile fashion. A 5 mm incision was made in the left upper quadrant. A 5 mm trocar was placed under direct vision. Pneumoperitoneum was established. Three right upper quadrant 5 mm ports were placed and an umbilical 5 mm trocar was placed. The gallbladder was then grasped and retracted cephalad. Infundibulum was grasped and retracted laterally. I dissected out the cystic duct and cystic artery. Cystic duct and artery were clipped and ligated after the cystic plate was fully identified. Cystic duct was clipped and ligated leaving 2 clips on the remaining duct and one on the remaining artery. Gallbladder was then taken off the liver bed with electrocautery. It was placed into an Endopouch and removed. The fascia at the right-sided incision was closed with a baepky-bd-dwtel 0 Vicryl. Skin was closed with 4-0 Monocryl. Incisions were dressed with Steri-Strips. COMPLICATIONS: None. [facility] [address] [place] [address] OPERATIVE REPORT Name: TERRI VALLADARES Room #: 208-P [facility] IN [facility].#: [id number] Admission: 01/28/20 Attend Phys: Kin Birmingham MD Discharge: Date of : 78 Report #: [id number] DISPOSITION: The patient was taken to recovery in satisfactory condition. <ELECTRONICALLY SIGNED> By: Jesus Kelly MD 02/02/20 1104 1504 1610 Jesus Kelly MD /nt
[2020-02-02 12:44] VITALS: BP 120/76
--- NOTE | 2020-02-02 14:17 | NUR ---
PT DISCHARGING TODAY TO [facility] WITH [facility] . REFERRAL FAXED SPOKE WITH MARCY IN INTAKE SHE CAN ACCEPT [facility] ON DC ORDERS TO BE FINIALIZED. TRANSPORT ARRANGED WITH NAD[facility] FOR 1800 TODAY. GURJIT DESIZING MACHINE OPERATOR NOTIFIED PT'S FAMILY OF DC AND TIME OF TRANSPORT AND NOTIFIED THE ER DEPT. IF PT DISCHARGES AFTER 1700 TODAY PLEASE FAX DC ORDERS TO [phone].
--- NOTE | 2020-02-02 14:23 | NUR ---
FAXED REFERRAL TO [facility] SPOKE WITH MARCY IN INTAKE SHE CAN ACCEPT AT [facility].
[2020-02-02 15:01] VITALS: BP 111/79
--- NOTE | 2020-02-02 15:58 | NUR ---
DC planning options discussed with pt at bedside after her therapy evals. The pt reports she is not interested in going to SNF and prefers home with HH. No agency preference. She does struggle with the flight of stairs up to her apt, but has her spouse and 18 yr old dtr that can help her. She dialyzes at [facility] MWF first shift. They are aware of her dc today and will be ready to resume in the am. The reports they have been looking for ground floor apt but it is hard to find one d/t kids and finances. She is hoping to decrease her dialysis run time and feels this makes her more fatigued. Encouragement given for her to discuss with Dr. Olivia. Dr. Olivia is going to follow her HH services. DC emergency planner faxed ref/orders to [facility] and they can accept. Pt aware and notes spouse will be picking her up at 4pm today. Support provided. Pt has needed dme.
--- NOTE | 2020-02-02 17:30 | NUR ---
PT WAS STILL EXPERIENCING ABDOMINAL PAIN FROM LAP/SIDNEY. PT WAS SEEN BY PT/OT. PT ALSO SEEN BY RENAL DR AND PRIMARY. PT WAS DISCHARGED WITH POC OF PAIN MGMT. DIALYSIS WAS SCHEDULED FOR THURSDAY. PT WAS SENT HOME WITH PT/OT [facility]. PT WAS DISCHARGED WITH .
--- NOTE | 2020-02-02 19:07 | PATH ---
[facility] [address] [place] [address] PATHOLOGY RPT PROCEDURE Name: EMILYLUKAS VERATAVAREZNERISSA CLEMENT Room #: 208-P DIS IN M.R.#: [id number] Admission: 01/28/20 Date of : 78 Discharge: 02/02/20 Report #: [id number] Path Case #: [id number] [facility] Accession Number: [id number] . 01 Material submitted: . gallbladder - GALLBLADDER . 01 Clinician provided ICD-10: I26.99 K85.90 . 01 Clinical history: . CHOLELITHIASIS, BILATERAL PE, PANCREATITIS, GALLSTONES IN NECK . 02 Diagnosis: Gallbladder, cholecystectomy: - Mild chronic cholecystitis. (IUV/db; 02/02/2020) LBQ 02/02/2020 1606 Local . 02 Electronically signed: . Farzaneh Qiu MD, Pathologist NPI- [id number] . 01 Gross description: . The specimen is received in formalin, labeled "Nerissa Larios", "gallbladder". Received is an intact gallbladder measuring 8.2 x 3.1 x 2.9 cm. The serosal surface is wrinkled, shiny and pale blue-green. Opening the gallbladder reveals a green, velvety, bile-stained mucosa with no polypoid adhesions or solid mass is identified. The gallbladder wall measures 0.1-0.2 cm in thickness. No calculi are identified. Electronic Assembly sections are submitted in cassette A1.(SNA; 02/01/2020) MENG/TORIN 02/01/2020 1706 Local . 02 Pathologist provided ICD-10: K81.1 . 02 CPT . 200556 Specimen Comment: A courtesy copy of this report has been sent to [phone] Specimen Comment: Report sent to Performed at: [address] [id number] MD Rashawn Blackburn MD Phone: [phone] Performed at: 02 [place] [address] PATHOLOGY RPT PROCEDURE Name: NERISSA LARIOS Room #: 208-P DIS IN M.R.#: [id number] Admission: 01/28/20 Date of : 78 Discharge: 02/02/20 Report #: [id number] Path Case #: [id number] [address] [facility] [place], [place] [id number] MD Farzaneh Qiu MD Phone: [phone]
--- NOTE | 2020-02-06 07:54 | EKG ---
[address] [address] ELECTROCARDIOGRAM REPORT Name: TERRI VALLADARES Room #: 208-P [facility] IN M.R.#: [id number] Admission: 01/28/20 Attend Phys: Kin Birmingham MD Discharge: 02/02/20 Date of : 78 Report #: [id number] [facility] ED Test Date: 2020-01-28 Test Time: 10:33:03 Pat Name: TERRI TAVAREZ Department: Room: 208 Gender: F Programs Manager: clark : 1980 Requested By: Jh Schneider Order Number: [id number] MD: Bharathi Landon Measurements Intervals [place] Rate: 138 P: -80 [place]: 114 QRS: 68 QRSD: 72 T: 30 QT: 297 QTc: 450 Interpretive Statements Sinus or ectopic atrial tachycardia Consider left ventricular hypertrophy Baseline wander in lead(s) V1,V6 Compared to ECG 01/07/2020 11:01:05 Sinus tachycardia no longer present Electronically Signed On 01-30-2020 7:20:06 ARTILLERY MAINTENANCE SUPERVISOR by Bharathi Landon [email or web address] <ELECTRONICALLY SIGNED> By: Bharathi Landon MD, FACC 01/30/20 0720 1033 1033 Bharathi Landon MD, FAC /EPI
== END 2020-02-02 17:37 | disposition home health service (06) | DRG 417 ==
LOC: ER 10:19 → 2N 16:30 → EROBS 16:30 → 2N 01-29 01:08
PROVIDERS: Emergency Medicine; Hospitalist; Surgery; ADMIT Internal Medicine; ATTEND Internal Medicine
PROC: 0FT44ZZ Resection of Gallbladder, Percutaneous Endoscopic Approach (ICD-10-PCS; principal; 2020-01-31)
PROC: 5A1D70Z Performance of Urinary Filtration, Intermittent, Less than 6 Hours Per Day (ICD-10-PCS; principal; 2020-01-31)
PROC: 5A1D70Z Performance of Urinary Filtration, Intermittent, Less than 6 Hours Per Day (ICD-10-PCS; 2020-02-01)
DX: K85.10 Biliary acute pancreatitis without necrosis or infection (principal); I26.99 Other pulmonary embolism without acute cor pulmonale; N18.6 End stage renal disease; E43 Unspecified severe protein-calorie malnutrition; K80.00 Calculus of gallbladder with acute cholecystitis without obstruction; I12.0 Hypertensive chronic kidney disease with stage 5 chronic kidney disease or end stage renal disease; Z68.1 Body mass index [BMI] 19.9 or less, adult; J44.9 Chronic obstructive pulmonary disease, unspecified; M32.9 Systemic lupus erythematosus, unspecified; D63.8 Anemia in other chronic diseases classified elsewhere; Z96.649 Presence of unspecified artificial hip joint; Z20.828 Contact with and (suspected) exposure to other viral communicable diseases; Z91.041 Radiographic dye allergy status; Z82.49 Family history of ischemic heart disease and other diseases of the circulatory system; Z79.899 Other long term (current) drug therapy; Z99.2 Dependence on renal dialysis
CPT/HCPCS: 10081; 32100; 50010; 50101; 50411; 50555; 50558; 51489; 52265; 52266; 53307; 53312; 53314; 55245; 56462; 56525; 56526; 62110; 62900; 70005

== ENCOUNTER 2020-02-04 19:49 | Emergency (ER) | payer OTHER ==
[~2020-02-04] VITALS: Ht 162.6 cm; Wt 52.6 kg
--- NOTE | ~2020-02-04 | EKG ---
[facility] [address] [place] [address] ELECTROCARDIOGRAM REPORT Name: TERRI VALLADARES [facility] [id number] Admission: 02/04/20 Attend Phys: Discharge: 02/04/20 Date of : 78 Report #: [id number] [facility] ED Test Date: 2020-02-04 Test Time: 20:42:03 Pat Name: TERRI KOCHLUKAS TAVAREZ Department: Room: Gender: F Oil Distributor: : 1980 Requested By: Kei Baca Order Number: [id number] MD: Measurements Intervals [place] Rate: 122 P: 75 [place]: 151 QRS: 38 QRSD: 76 T: 45 QT: 321 QTc: 458 Interpretive Statements Sinus tachycardia Baseline wander in lead(s) V2 Compared to ECG 01/28/2020 10:33:03 No significant changes [email or web address] By: 41 41 Epiphany MD Tenisha /EPI
[~2020-02-04 19:49] MED LIST changes: +ELIQUIS5 MG PO; +HYDROCODON-ACE1 EAC7 PO
[2020-02-04 20:55] LABS: ABSOLUTE NEUTROPHILS 5.2 thou/uL (1.4-8.2); BASOPHILS 0.8 % (0.0-2.0); EOSINOPHILS 0.5 % (0.0-3.0); HEMATOCRIT 27.5 % (37.0-47.0); HEMOGLOBIN 8.9 gm/dL (12.0-15.0); LYMPHOCYTES 21.3 % (24.0-44.0); MCH 27.6 pg (26.0-34.0); MCHC 32.4 g/dL (28.0-37.0); MCV 85.1 fL (80.0-100.0); PLATELET COUNT 397 thou/uL (150-400); POLYS 64.4 % (36.0-66.0); RBC 3.23 mil/uL (4.20-5.00); RDW 17.8 % (10.5-14.5); WBC 8.1 thou/uL (4.0-11.0)
[2020-02-04 21:08] LABS: ANION GAP 6 mmol/L (7-16); BUN 13 mg/dL (7-18); CALCIUM 8.8 mg/dL (8.5-10.1); CHLORIDE 100 mmol/L (98-107); CO2 32 mmol/L (21-32); CREATININE 3.6 mg/dL (0.6-1.0); GLUCOSE 109 mg/dL (74-106); SODIUM 138 mmol/L (136-145)
[2020-02-04 21:13] LABS: ALBUMIN 1.6 g/dL (3.4-5.0); SGOT 19 U/L (15-37); SGPT < 6 U/L (14-59); TOTAL BILIRUBIN 0.2 mg/dL (0.2-1.0); TOTAL PROTEIN 5.8 g/dL (6.4-8.2)
[2020-02-04] MEDS ORDERED: MOBIC7.5 MG PO (23:44)
[2020-02-04 23:58] VITALS: BP 163/111
== END 2020-02-04 23:59 | disposition home or self-care (01) ==
LOC: ER 19:49
PROVIDERS: Nurse Practitioner
DX: R10.9 Unspecified abdominal pain (principal); M54.5 Low back pain; M54.6 Pain in thoracic spine; I10 Essential (primary) hypertension; J44.9 Chronic obstructive pulmonary disease, unspecified; I12.0 Hypertensive chronic kidney disease with stage 5 chronic kidney disease or end stage renal disease; N18.6 End stage renal disease; Z99.2 Dependence on renal dialysis; Z96.641 Presence of right artificial hip joint; Z79.899 Other long term (current) drug therapy; Z91.041 Radiographic dye allergy status

== ENCOUNTER 2020-05-02 18:05 | Emergency (ER) | payer OTHER ==
[~2020-05-02] VITALS: Ht 160 cm; Wt 49.4 kg
[~2020-05-02 18:05] MED LIST changes: +MOBIC7.5 MG PO
[2020-05-02] MEDS ORDERED: ULTRAM 50MG TAB50 MG PO (19:54)
[2020-05-02 19:57] VITALS: BP 200/123
== END 2020-05-02 20:13 | disposition home or self-care (01) ==
LOC: ER 18:05
DX: M79.605 Pain in left leg (principal); M79.604 Pain in right leg; J44.9 Chronic obstructive pulmonary disease, unspecified; I12.9 Hypertensive chronic kidney disease with stage 1 through stage 4 chronic kidney disease, or unspecified chronic kidney disease; N18.9 Chronic kidney disease, unspecified; Z79.899 Other long term (current) drug therapy; Z88.8 Allergy status to other drugs, medicaments and biological substances

== ENCOUNTER 2020-05-10 14:46 | Inpatient (IN) | payer OTHER ==
[~2020-05-10] VITALS: Ht 160 cm; Wt 49.0 kg
[2020-05-10 14:47] VITALS: BP 195/132
[2020-05-10 15:25] LABS: ABSOLUTE NEUTROPHILS 4.1 thou/uL (1.4-8.2); BASOPHILS 0.9 % (0.0-2.0); EOSINOPHILS 1.4 % (0.0-3.0); HEMATOCRIT 35.9 % (37.0-47.0); LYMPHOCYTES 28.5 % (24.0-44.0); MCH 24.7 pg (26.0-34.0); MCHC 33.5 g/dL (28.0-37.0); MCV 73.8 fL (80.0-100.0); MONOCYTES 8.7 % (1.0-8.0); PLATELET COUNT 384 thou/uL (150-400); POLYS 60.5 % (36.0-66.0); RBC 4.86 mil/uL (4.20-5.00); RDW 19.7 % (10.5-14.5); WBC 6.8 thou/uL (4.0-11.0)
[2020-05-10 15:39] LABS: CALCIUM 11.1 mg/dL (8.5-10.1); CREATININE 3.7 mg/dL (0.6-1.0); POTASSIUM 3.8 mmol/L (3.5-5.1)
[2020-05-10 15:50] LABS: ALBUMIN 3.3 g/dL (3.4-5.0); TOTAL BILIRUBIN 0.6 mg/dL (0.2-1.0); TOTAL PROTEIN 7.7 g/dL (6.4-8.2); TROPONIN-I 0.09 ng/mL (<0.06)
[2020-05-10 16:43] LABS: INR 1.1; PROTIME 11.4 Seconds (9.3-11.4)
[2020-05-10 17:01] LABS: CHOLESTEROL 193 mg/dL (<200); HDL CHOLESTEROL 92 mg/dL (>40); LDL CHOLESTEROL 74 mg/dL (<100); TC:HDL 2.1 Ratio (Not establshd); TRIGLYCERIDE 135 mg/dL (<150); VLDL 27 mg/dL (<40)
[2020-05-10 17:09] LABS: SERUM ASSESSMENT Clear
[2020-05-10 20:03] VITALS: BP 178/113
--- NOTE | 2020-05-10 20:31 | NUR ---
CCU NURSE WITH PT
--- NOTE | 2020-05-10 21:13 | NUR ---
2 CALLS TO THE CCU, NO ANSWER, THERMOSTAT MAKER NOTIFIED, WILL TAKE TO CCU , HAVE NURSE CALL FOR REPORT
[2020-05-10 21:18] VITALS: BP 173/110
[2020-05-10 21:35] VITALS: BP 180/113
[2020-05-11] VITALS (9 sets, daily range): BP systolic 153–189; BP diastolic 99–123
--- NOTE | 2020-05-11 00:01 | NUR ---
TALKED WITH DR BEE AT 1999, GIVEN CONDITION UPDATE, REQUESTED TROPONIN AT 0700 AND SCHEDULE FOR ECHOCARDIOGRAM IN AM, THIS MESSAGE RELAYED TO SANDY AND ORDERS PUT IN, REPORT GIVEN TO PT NURSE AROUND 1999
--- NOTE | 2020-05-11 03:40 | NUR ---
Pt is an ER admit who presented with SOA and chest pain, plus elevated blood pressure. Upon arrival to the floor, pt states she wasn't experiencing current chest pain but continued elvated blood pressure noted. STATISTICAL TYPIST notified and PRN hydralazine ordered. Admission assessment and education completed and documented. Plan of care documented as well. Pt is stable through the night. Pt verbalized generalized body aches. Scheduled meds administered to pt. No acute events overnight. Continue to monitor. No further needs at this time.
--- NOTE | 2020-05-11 07:15 | EKG ---
[address] [address] ELECTROCARDIOGRAM REPORT Name: TERRI VALLADARES Room #: 215-P [facility] IN ..#: [id number] Admission: 05/10/20 Attend Phys: Harrison Bustillos MD Discharge: Date of : 78 Report #: [id number] [facility] Test Date: 2020-05-10 Test Time: 15:01:06 Pat Name: TERRI VERAMING Department: Room: 215 Gender: F Manufacturing Engineering Technician: THALIA : 1980 Requested By: Cas Salinas Order Number: [id number] MD: Bharathi Landon Measurements Intervals [place] Rate: 110 P: 64 [place]: 155 QRS: 48 QRSD: 86 T: 70 QT: 373 QTc: 505 Interpretive Statements Sinus tachycardia Probable left atrial enlargement Probable left ventricular hypertrophy Prolonged QT interval Baseline wander in lead(s) V4,V5 Compared to ECG 02/04/2020 20:42:03 Prolonged QT interval now present Electronically Signed On 05-11-2020 7:15:11 CDT by Bharathi Landon [email or web address] <ELECTRONICALLY SIGNED> By: Bharathi Landon MD, FAC 05/11/20 0715 1501 1501 Bharathi Landon MD, [facility] /EPI
[2020-05-11 07:57] LABS: HEMATOCRIT 30.6 % (37.0-47.0); HEMOGLOBIN 10.3 gm/dL (12.0-15.0); MCH 24.8 pg (26.0-34.0); MCHC 33.7 g/dL (28.0-37.0); MCV 73.7 fL (80.0-100.0); RBC 4.16 mil/uL (4.20-5.00); RDW 19.8 % (10.5-14.5); WBC 5.2 thou/uL (4.0-11.0)
[2020-05-11 08:06] LABS: CALCIUM 10.9 mg/dL (8.5-10.1); CREATININE 4.6 mg/dL (0.6-1.0); POTASSIUM 4.1 mmol/L (3.5-5.1)
--- NOTE | 2020-05-11 09:54 | 2DMMODE ---
[facility] [place] [address] 2 D/M-MODE ECHOCARDIOGRAM Name: TERRI VALLADARES Room #: 215-P ADM IN [facility].#: [id number] Admission: 05/10/20 Attend Phys: Harrison Bustillos MD Discharge: Date of : 78 Report #: [id number] THIS REPORT FOR: cc: FAM - No family physician/PCP FAM - No family physician/PCP Reji Brooks MD [facility] ~ APPROVED REPORT Study performed: 05/11/2020 09:00:39 EXAM: Comprehensive 2D, Doppler, and color-flow Echocardiogram Patient Location: Bedside Room #: 215 Status: routine BSA: 1.35 HR: 75 bpm BP: 173/104 mmHg Rhythm: NSR Other Information Study Quality: Excellent Indications Chest pain, short of breath, elevated troponin. Hx: COPD, HTN, ESRD, PE. 2D Dimensions RVDd: 22.31 mm IVSd: 14.76 (7-11mm) LVOT Diam: 18.84 (18-24mm) LVDd: 39.73 mm PWd: 14.15 (7-11mm) Ascending Ao: 33.03 (22-36mm) LVDs: 33.22 (25-40mm) Left Atrium: 29.11 (27-40mm) Aortic Root: 35.40 mm Volumes Left Atrial Volume (Systole) Single Plane 4CH: 37.76 mL Single Plane 2CH: 50.09 mL LA ESV Index: 35.00 mL/m2 Aortic Valve AoV Peak Barber.: 1.27 m/s AO Peak Gr.: 6.47 mmHg LVOT Max P.68 mmHg LVOT Max V: 0.82 m/s [facility] [address] [place] [address] 2 D/M-MODE ECHOCARDIOGRAM Name: TERRI VALLADARES Room #: 215-[facility] IN [facility]#: [id number] Admission: 05/10/20 Attend Phys: Harrison Bustillos MD Discharge: Date of : 78 Report #: [id number] FRIDA Vmax: 1.79 cm2 Mitral Valve E/A Ratio: 0.6 MV Decel. Time: 154.56 ms MV E Max Barber.: 0.49 m/s MV A Barber.: 0.85 m/s MV PHT: 44.82 ms IVRT: 159.17 ms Pulmonary Valve PV Peak Barber.: 0.74 m/s PV Peak Gr.: 2.18 mmHg Tricuspid Valve TR Peak Barber.: 2.05 m/s RAP Estimate: 5.00 mmHg TR Peak Gr.: 17.00 mmHg PA Pressure: 22.00 mmHg Left Ventricle The left ventricle is normal size. There is global hypokinesis of the left ventricle. Moderate concentric left ventricular hypertrophy. Left ventricular systolic function is mild to moderately decreased. LVEF is 40-45%. Mild diastolic dysfunction Right Ventricle The right ventricle is normal size. The right ventricular systolic function is normal. Atria Left atrium is mildly dilated. Small PFO noted with color doppler. The right atrium size is normal. Aortic Valve The aortic valve is normal in structure. Mild aortic regurgitation. There is no aortic valvular stenosis. Mitral Valve Mild mitral annular calcification. Mild mitral regurgitation. Tricuspid Valve The tricuspid valve is normal in structure. Trace tricuspid regurgitation. Estimated PAP is 20-25mmHg. Pulmonic Valve The pulmonary valve is normal in structure. Trace pulmonic [facility] [address] [place] [address] 2 D/M-MODE ECHOCARDIOGRAM Name: TERRI VALLADARES Room #: 215-P ADM IN .R.#: [id number] Admission: 05/10/20 Attend Phys: Harrison Bustillos MD Discharge: Date of : 78 Report #: [id number] regurgitation. Great Vessels The aortic root is normal in size. The ascending aorta is normal in size. IVC is normal in size and collapses >50% with inspiration. Pericardium Small to moderate pericardial effusion. Left pleural effusion. <Conclusion> Left ventricular systolic function is mild to moderately decreased. There is global hypokinesis of the left ventricle. Moderate concentric left ventricular hypertrophy. LVEF is 40-45%. Mild diastolic dysfunction Small PFO noted with color doppler. The aortic valve is normal in structure. Mild aortic regurgitation, no stenosis. Mild mitral annular calcification. Mild mitral regurgitation. Trace tricuspid regurgitation. Estimated pulmonary artery pressure of 20-25mmHg. Small to moderate pericardial effusion. Left pleural effusion. <ELECTRONICALLY SIGNED> By: Reji Brooks MD, [facility] 05/11/2054 3 3 Reji Brooks MD, FAC /INF
--- NOTE | 2020-05-11 19:50 | NUR ---
PT CARE ASSUMED AT 0700. ASSESSMENTS CHARTED. MEDICATIONS CHARTED. LAC IV. NORMAL SINUS RHYTHM. NM STRESS TEST PERFORMED THIS AM. DIALYSIS PERFORMED; 2 L REMOVED. PT COMPLAINED OF A LOT OF PAIN 10/; FENTANYL GIVEN 25 MCG ONETIME TWICE; DR CRUMP THEN ORDERED 50 MCG Q4 PRN; APPEARS TO WORK BETTER.
--- NOTE | 2020-05-12 04:18 | NUR ---
Assumed pt care at 1900. Pt is alert and oriented with no sign of distress noted in pt. Currently denies pain. Patient is alert and oriented. Pt is stable. Fall precaution in place, assessment completed and documented. Scheduled meds administered to pt. No acute events overnight. Pt is stable. Continue to monitor.
[2020-05-12 05:10] VITALS: BP 178/107
[2020-05-12 08:05] VITALS: BP 154/95
[2020-05-12 11:45] VITALS: BP 186/106
[2020-05-12] MEDS ORDERED: BYSTOLIC10 MG PO (13:10)
[2020-05-12] MEDS ORDERED: IMDUR 30 MG TAB30 M1 PO (13:10)
[2020-05-12] MEDS ORDERED: ATORVASTATIN CA10 MG PO (13:10)
[2020-05-12] MEDS ORDERED: BENICAR40 MG PO (13:11)
[2020-05-12] MEDS ORDERED: BAYER CHEWABLE81 MG PO (13:11)
[2020-05-12 15:41] VITALS: BP 186/106
--- NOTE | 2020-05-12 16:01 | NUR ---
ASSUMED CARE OF PT AT SHIFT CHANGE. ASSESSMENTS CHARTED. MEDS GIVEN PER APR. PT A&OX4, C/O PAIN TREATED WITH IV MEDS WITH PARTIAL RELIEF. DISCHARGE ORDERS AND INSTRUCTIONS COMPLETE. IV AND TELE DC'D. PT TAKEN TO ENTRANCE VIA WHEELCHAIR TO FAMILY WAITING IN CAR.
== END 2020-05-12 16:34 | disposition home or self-care (01) | DRG 304 ==
LOC: ER 14:46 → EROBS 18:33 → 2N 18:33
PROVIDERS: Emergency Medicine; Nurse Practitioner Adult Health; Physician Assistant; ADMIT Hospitalist; ATTEND Hospitalist
PROC: 5A1D70Z Performance of Urinary Filtration, Intermittent, Less than 6 Hours Per Day (ICD-10-PCS; principal; 2020-05-10)
DX: I16.0 Hypertensive urgency (principal); N18.6 End stage renal disease; I12.0 Hypertensive chronic kidney disease with stage 5 chronic kidney disease or end stage renal disease; R77.8 Other specified abnormalities of plasma proteins; K31.84 Gastroparesis; J44.9 Chronic obstructive pulmonary disease, unspecified; M32.9 Systemic lupus erythematosus, unspecified; Z96.641 Presence of right artificial hip joint; Z91.041 Radiographic dye allergy status; Z86.711 Personal history of pulmonary embolism; Z91.19 Patient's noncompliance with other medical treatment and regimen; Z79.899 Other long term (current) drug therapy
CPT/HCPCS: 10797; 32100

== ENCOUNTER 2020-06-23 23:10 | Emergency (ER) | payer OTHER ==
[~2020-06-23] VITALS: Ht 160 cm; Wt 59.0 kg
[~2020-06-23 23:10] MED LIST changes: +ATORVASTATIN CA10 MG PO; +BAYER CHEWABLE81 MG PO; +BENICAR40 MG PO; +BYSTOLIC10 MG PO; +IMDUR 30 MG TAB30 M1 PO
[2020-06-23] MEDS ORDERED: COZAAR 25 MG TA25 M2 PO (23:31)
[2020-06-24] MEDS ORDERED: DIAZEPAM 5 MG5 M1 PO (02:00)
[2020-06-24 02:44] VITALS: BP 168/108
[2020-06-25] MEDS ORDERED: TYLENOL325 M1 PO ×2 (14:46→18:04)
[2020-06-25] MEDS ORDERED: NAPROSYN500 MG PO (14:46)
[2020-06-25] MEDS ORDERED: METHOCARBAMOL500 M2 PO (14:46)
== END 2020-06-24 02:44 | disposition home or self-care (01) ==
LOC: ER 23:10
DX: I12.0 Hypertensive chronic kidney disease with stage 5 chronic kidney disease or end stage renal disease (principal); N18.6 End stage renal disease; M54.5 Low back pain; J44.9 Chronic obstructive pulmonary disease, unspecified; Z96.641 Presence of right artificial hip joint; Z79.899 Other long term (current) drug therapy; Z91.041 Radiographic dye allergy status; Z99.2 Dependence on renal dialysis

== ENCOUNTER 2020-06-25 14:15 | Observation (INO) | payer OTHER ==
[~2020-06-25] VITALS: Ht 157.5 cm; Wt 46.6 kg
--- NOTE | ~2020-06-25 | HC ---
[facility] [place] [address] CONSULTATION Name: TERRI VALLADARES Room #: 359-P [facility]#: [id number] Admission: 06/25/20 Attend Phys: Hodan Mendez MD Discharge: Date of : 78 Report #: [id number] THIS REPORT FOR: cc: CHEL - Grisel family physician/PCP CHEL - Grisel family physician/PCP Alexey Sadler MD ~ DOC #: [id number] Alexey Sadler MD REASON FOR THE CONSULTATION: End-stage renal disease. REASON FOR THE PRESENTATION: Chest pain. HISTORY OF PRESENT ILLNESS: A 40-year-old with history of lupus, end-stage renal disease, maintained on hemodialysis every Thursday, Thursday and Thursday. She presented with chest pain, associated with shortness of breath. No nausea or vomiting. She describes the chest pain as sharp in the central part of her chest with no radiation. This episode seems to be similar to previous other episodes. She was supposed to have stress test done as an outpatient; however, this was not done because the patient failed to follow up. Unfortunately, the patient is well known to have noncompliance with medical care. She previously used to be on peritoneal dialysis and was switched to hemodialysis. When she arrived to the Emergency Room yesterday, she was found to have significant hyperkalemia. She was admitted to further evaluate her issues. PAST MEDICAL HISTORY: 1. Lupus. 2. Hypertension. 3. End-stage renal disease, maintained on hemodialysis every Thursday, Thursday and Thursday. 4. Remote history of peritoneal dialysis. 5. Hip surgery. 6. Bilateral hip avascular necrosis. 7. Tunneled catheter insertion. 8. Peritoneal dialysis catheter insertion and removal. FAMILY HISTORY: Hypertension. SOCIAL HISTORY: Denies drug or alcohol abuse. Lives with her family. MEDICATIONS: 1. Losartan. 2. Clonidine. 3. Acetaminophen. REVIEW OF SYSTEMS: [facility] [address] [place] [address] CONSULTATION Name: TERRI VALLADARES Room #: 359-P [facility].#: [id number] Admission: 06/25/20 Attend Phys: Hodan Mendez MD Discharge: Date of : 78 Report #: [id number] GENERAL: No fever or chills. CARDIOVASCULAR: Significant for chest pain and shortness of breath. PULMONARY: As per the history of present illness. GASTROINTESTINAL: No nausea or vomiting. MUSCULOSKELETAL: Bilateral hip pain. ALLERGIES: IODINE. PHYSICAL EXAMINATION: VITAL SIGNS: Temperature 36.5, pulse rate 100, respiratory rate 20, blood pressure 190/100. HEAD AND NECK: Evidence of jugular venous distention. CHEST: Bilateral crackles. CARDIOVASCULAR: No rub. ABDOMEN: Soft, nontender. EXTREMITIES: Lower extremities, no edema. LABORATORY VALUES: Sodium 136, potassium 5.2, BUN 24, creatinine is 3.4, calcium is 10.3. ASSESSMENT, IMPRESSION, PLAN: 1. End-stage renal disease. 2. Chest pain, noncardiac, post-catheterization with no significant finding. 3. Pulmonary edema. 4. Hypertensive urgency. 5. Noncompliance with medical care. 6. Hyperkalemia. 7. The patient was dialyzed yesterday. 8. Status post catheterization with no significant finding. 9. Another dialysis session today. 10. Okay to discharge home. Alexey Sadler MD AIA/HEM By: 0500 0537 Alexey Sadler MD /nt
[~2020-06-25 14:15] MED LIST changes: +COZAAR 25 MG TA25 M2 PO; +DIAZEPAM 5 MG5 M1 PO
[2020-06-25 14:18] VITALS: BP 161/105
[2020-06-25 14:40] LABS: HCO3 30.1 mmol/L (22.0-26.0); PCO2 VENOUS 37.2 mmHg (41.0-51.0)
[2020-06-25 14:45] LABS: ABSOLUTE NEUTROPHILS 9.1 thou/uL (1.4-8.2); BASOPHILS 0.8 % (0.0-2.0); EOSINOPHILS 0.8 % (0.0-3.0); HEMATOCRIT 30.1 % (37.0-47.0); HEMOGLOBIN 10.4 gm/dL (12.0-15.0); LYMPHOCYTES 10.9 % (24.0-44.0); MCH 27.1 pg (26.0-34.0); MCHC 34.5 g/dL (28.0-37.0); MCV 78.4 fL (80.0-100.0); MONOCYTES 8.3 % (1.0-8.0); PLATELET COUNT 515 thou/uL (150-400); POLYS 79.2 % (36.0-66.0); RBC 3.85 mil/uL (4.20-5.00); RDW 23.9 % (10.5-14.5); WBC 11.5 thou/uL (4.0-11.0)
[2020-06-25] MEDS ORDERED: TYLENOL325 M1 PO ×2 (14:46→18:04)
[2020-06-25] MEDS ORDERED: METHOCARBAMOL500 M2 PO (14:46)
[2020-06-25] MEDS ORDERED: NAPROSYN500 MG PO (14:46)
[2020-06-25 14:53] LABS: ANION GAP 6 mmol/L (7-16); BUN 11 mg/dL (7-18); CALCIUM 9.7 mg/dL (8.5-10.1); CHLORIDE 98 mmol/L (98-107); CO2 31 mmol/L (21-32); CREATININE 2.5 mg/dL (0.6-1.0); GLUCOSE 103 mg/dL (74-106); POTASSIUM 5.8 mmol/L (3.5-5.1); SODIUM 135 mmol/L (136-145)
[2020-06-25 15:03] LABS: ALBUMIN 3.2 g/dL (3.4-5.0); SGOT 35 U/L (15-37); SGPT 38 U/L (14-59); TOTAL BILIRUBIN 0.7 mg/dL (0.2-1.0); TOTAL PROTEIN 8.3 g/dL (6.4-8.2); TROPONIN-I <0.06 ng/mL (<0.06)
[2020-06-25 15:26] LABS: TEARDROPS OCCASIONAL
[2020-06-25 15:27] LABS: POLYCHROMASIA 1+; SCHISTOCYTES FEW
[2020-06-25 16:58] VITALS: BP 156/105
--- NOTE | 2020-06-25 17:02 | NUR ---
CAlled to give report and was told JAK Carrion was in a room with a pt and would call back
[2020-06-25 18:11] VITALS: BP 179/120
[2020-06-25 20:10] VITALS: BP 169/100
--- NOTE | 2020-06-25 22:44 | NUR ---
PT ADMITTED THIS EVENING ON DAY SHIFT. ALERT AND ORIENTED X4. BP MODERATELY ELEVATED. CLONIDINE GIVEN PO FOR BP. C/O GENERALIZED ABD PAIN AND GENERALIZED ALL OVER BODY PAIN. HYDROCODONE GIVEN ORDERED. NOTIFIED BUILD ENGINEER PT C/O NAUSEA. WAITING FOR PHARMACY TO PUT IN ORDER. TESSIO INTACT TO RIGHT CHEST. NO BLEEDING NOTED. PT IS THIN AND STATED SHE HAS LOST 20 LBS. HS SNACK TRAY GIVEN. PT TOOK 1 BITE OF SANDWICH. INSTRUCTED PT ON FALL PRECAUTIONS. CALL LIGHT IN REACH. BED DOWN BED ALARM ON. SCDS ON. NO S/S SKIN BREAKDOWN NOTED.
[2020-06-25 23:40] VITALS: BP 163/117
[2020-06-26] VITALS (12 sets, daily range): BP systolic 154–194; BP diastolic 105–126
--- NOTE | 2020-06-26 02:50 | NUR ---
NOTIFIED DRIVER RETRAINING INSTRUCTOR OF LAST K 5.8 . WILL WAIT TO SEE WHAT AM K+ LEVEL IS THIS AM ORDERED.
--- NOTE | 2020-06-26 06:12 | NUR ---
PT NPO AFTER MN FOR STRESS TEST. NOTIFIED Lenin FINNEY OF PTS BP ELEVATED DESPITE HYDRALAZINE. NO FURTHER BP MEDS ORDERED FOR NOW ORDERED BY NEWS ASSISTANT Lenin FINNEY.
[2020-06-26 06:13] LABS: HEMATOCRIT 33.8 % (37.0-47.0); MCHC 32.6 g/dL (28.0-37.0); MCV 79.8 fL (80.0-100.0); RBC 4.24 mil/uL (4.20-5.00); RDW 23.6 % (10.5-14.5); WBC 6.9 thou/uL (4.0-11.0)
[2020-06-26 06:37] LABS: ANION GAP 6 mmol/L (7-16); BUN 17 mg/dL (7-18); CALCIUM 10.4 mg/dL (8.5-10.1); CHLORIDE 100 mmol/L (98-107); CO2 31 mmol/L (21-32); CREATININE 3.5 mg/dL (0.6-1.0); GLUCOSE 88 mg/dL (74-106); SODIUM 137 mmol/L (136-145); TROPONIN-I <0.06 ng/mL (<0.06)
[2020-06-26 06:38] LABS: POTASSIUM 6.6 mmol/L (3.5-5.1)
--- NOTE | 2020-06-26 07:24 | NUR ---
NOTIFIED RENETTA FINNEY OF CRITICAL K 6.6 AND LEFT MESSAGE WITH ANSWERING SERVICE FOR CALL BACK RE K 6.6. STILL WAITING FOR CALL BACK. DAY SHIFT NS NOTIFIED OF THE ABOVE. OK TO GIVE HYDROCODONE WITH SIP OF H20 PER Lenin FINNEY NP.
--- NOTE | 2020-06-26 08:44 | EKG ---
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: GEM : 1980 Requested By: Karoline Contreras Order Number: [id number] MD: Bharathi Landon Measurements Intervals [place] Rate: 108 P: 41 NV: 160 QRS: 19 QRSD: 80 T: 94 QT: 334 QTc: 448 Interpretive Statements Sinus tachycardia Left ventricular hypertrophy Compared to ECG 05/10/2020 15:01:06 Prolonged QT interval no longer present Electronically Signed On 06-26-2020 8:43:47 CDT by Bharathi Landon [email or web address] <ELECTRONICALLY SIGNED> By: Bharathi Landon MD, [facility] 06/26/20 0843 1422 22 Bharathi Landon MD, FACC /EPI
--- NOTE | 2020-06-26 15:29 | NUR ---
INITIAL ASSESSMENT: SW reviewed chart and spoke with nursing and attending physician. Pt was admitted from home due to chest pain. Pt with hx HTN/ESRD. Pt is a dialysis pt. Pt is currently off the unit having cardiac cath. Pt to return to 3W after procedure. Per chart, pt is alert/orientated x 4. Pt lives at home with her family. Prior to admission, pt was independent with ADLs. Pt has a walker. [facility] Pt goes to [facility] at 0600. LYSSA spoke with Akosua at [facility]. Provided update. Clinical info and finalized discharge orders will need to be faxed when available. Plan is for pt to discharge home when medically stable. LYSSA is following to assist as needed with discharge planning.
--- NOTE | 2020-06-26 15:36 | CATHLAB ---
[facility] [place] [place] [address] INVASIVE PROCEDURE REPORT Name: TERRI VALLADARES Room #: 359-P ADM [facility] M.R.#: [id number] Admission: 06/25/20 Attend Phys: Hodan Mendez MD Discharge: Date of : 78 Report #: [id number] THIS REPORT FOR: cc: FAM - No family physician/PCP FAM - No family physician/PCP Alden Morfin MD ~ APPROVED REPORT Study performed: 06/26/2020 14:11:23 Patient Details Patient Status: In-Patient Room #: 359 The patient is a 40 year-old female Event Personnel Alden Morfin Cartridge Belt Puncher, Robert Grubbs RN RN, Mello Dale RTR Monitor, Ivan Benoit RTR Scrub Procedures Performed Art Access - R femoral artery* Left Heart Cath w/or w/o Coronaries [id number] [facility] [address] Initial Mod Sed Same Phys/QHP Gr 652389 59522 Mod Sed Same Phys/QHP Ea [id number] Hemostasis with Manual pressure Indication Dyspnea, Positive stress test, Chest pain Risk Factors Hypercholesterolemia, HypertensionRenal Failure Procedure Narrative The Right Groin^ was infiltrated with 1% Lidocaine subcutaneous anesthesia. A PINNACLE 4FR Sheath #[id number] sheath was inserted into the RFA^. Coronary angiography was performed using coronary diagnostic catheters. The right coronary system was accessed and visualized with a JR4 catheter. The left coronary system was accessed and visualized with a JL4 catheter. The left ventricle was accessed and visualized with a PIGTAIL catheter. Left ventricular/Aortic Valve gradient assessed via catheter pullback. Left ventriculogram was performed in 30 degree projection. Hemostasis was obtained with manual pressure following sheath removal without any complications. The patient tolerated the procedure well and there were no complications associated with the procedure. There was no hematoma. [facility] [place] [place] [address] [place] [address] INVASIVE PROCEDURE REPORT Name: TERRI VALLADARES Room #: 359-P [facility]#: [id number] Admission: 06/25/20 Attend Phys: Hodan Mendez MD Discharge: Date of : 78 Report #: [id number] Intraoperative Conscious Sedation Sedation start time: 1440 Case end Time: 1515 Fentanyl 50 mcg Versed 0.5 mg Fluoro Time: 2.19 minutes Dose: DAP 1371.70 cGycm2 172 mGy Contrast Type and Amount: Omnipaque 100 ml Coronary Angiography The patient's coronary anatomy is right dominant. Diagnostic Cath Left Main The left main artery is a large-caliber vessel, appears angiographically normal. LAD The LAD is a moderate-sized caliber vessel, traverses the anterior wall and terminates in the mid inferior segment. This vessel is patent with minimal plaquing in the proximal segment. Diagonal 1 This is a small caliber vessel, patent with no flow-limiting lesions. Diagonal 2 This is a small caliber vessel, patent with no flow-limiting lesions. Circumflex The left circumflex artery is a moderate-sized caliber vessel, appears angiographically normal. OM1 This is a small caliber vessel, patent with no flow-limiting lesions. OM2 This is a small caliber vessel, patent with no flow-limiting lesions. Right Coronary The RCA is a moderate-sized caliber vessel, appears angiographically normal. R PDA This is a small to moderate-sized caliber vessel, patent with no flow-limiting lesions. RPLV This is a small to moderate-sized caliber vessel, patent with no flow-limiting lesions. Ramus The ramus artery is a moderate-sized caliber vessel, with mild disease in the proximal segment, 10%. This vessel divides into several branches as it travels down the lateral wall. Left Ventriculography The left ventricle is normal in size with normal contractility. The left ventricular ejection fraction is estimated to be 50-55%. Hemodynamics [facility] [place] [place] [address] [place] [address] INVASIVE PROCEDURE REPORT Name: TERRI VALLADARES Room #: 359-P [facility] M.R.#: [id number] Admission: 06/25/20 Attend Phys: Hodan Mendez MD Discharge: Date of : 78 Report #: [id number] The aortic pressure is 178/115 mmHg with a mean of 44 mmHg. The left ventricular pressure is 186/5 mmHg with a mean of mmHg. The left ventricular end diastolic pressure is 13 mmHg. Pullback from the left ventricle to the aorta revealed a mm gradient across the aortic valve. Conclusion 1. 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 2. There is minimal plaquing noted in the proximal LAD. 3. This is a right dominant system. 4. There is normal LV systolic function. 5. Recommend risk factor management. <ELECTRONICALLY SIGNED> By: Alden Morfin MD 06/26/20 1536 1536 1536 Alden Morfin MD /INF
--- NOTE | 2020-06-26 16:42 | NUR ---
1530PT BACK FROM CATH NO INTERVENTION WAS DONE. GROIN SITE, CLEAN, DRY AND INTACT. NO SIGNS OF BLEEEDING OR HEMATOMA. VITALS SIGNS DONE PER ORDER. POST CATH ASSESSMENT COMPLETED PER ORDER
[2020-06-27 03:56] VITALS: BP 192/128
[2020-06-27 05:14] LABS: HEMOGLOBIN 10.8 gm/dL (12.0-15.0); MCH 26.8 pg (26.0-34.0); MCHC 33.8 g/dL (28.0-37.0); MCV 79.4 fL (80.0-100.0); RBC 4.03 mil/uL (4.20-5.00); RDW 23.6 % (10.5-14.5); WBC 7.5 thou/uL (4.0-11.0)
[2020-06-27 05:21] LABS: CALCIUM 10.3 mg/dL (8.5-10.1); CREATININE 3.4 mg/dL (0.6-1.0)
[2020-06-27 05:27] LABS: POTASSIUM 5.2 mmol/L (3.5-5.1)
--- NOTE | 2020-06-27 07:08 | NUR ---
PROGRESS PT REPORTING BACK PAIN AT A LEVEL OF 10/10 OFFERED HYDROCODONE BUT PT REFUSED STATED IT DOESN'T WORK AND REQUESTED FENTANYL Q4HRS. CONTACTED SOLDERER ASSEMBLER [place]AR[place] AND WAS TOLD THAT NO IV MEDICATION WOULD BE ORDERED FOR HER HER CONDITION DID NOT REQUIRE PARENTAL INTERVENTION. REITERATED TO PT THAT HYDROCODONE WAS ORDERED AND NO IV MEDICATION WOULD BE GIVEN. TOOK ONE DOSE AND STATED NO EFFECT. REPORTED NAUSEA AROUND 5 AM AND A DOSE OF ZOFRAN GIVEN. NO URINE AND NO BM THIS SHIFT. PLAN FOR DIALYSIS TODAY THEN POSSIBLE DC HOME.
[2020-06-27 08:07] VITALS: BP 193/132
[2020-06-27] MEDS ORDERED: COZAAR 50 MG TA50 M1 PO (10:09)
[2020-06-27] MEDS ORDERED: HYDROCODON-ACE1 EAC7 PO (10:09)
[2020-06-27] MEDS ORDERED: CLONIDINE HCL0.1 MG PO (10:10)
[2020-06-27 11:34] VITALS: BP 141/114
--- NOTE | 2020-06-27 12:19 | NUR ---
Pt dcing home today after dialysis. DC orders faxed to Radha DÍAZ for resumption of her normally outpt schedule. No other needs noted.
[2020-06-27 12:20] VITALS: BP 141/114
[2020-06-27 13:10] VITALS: BP 141/114
[2020-06-27 15:30] VITALS: BP 141/66
--- NOTE | 2020-06-27 17:30 | NUR ---
IV D/C, PT GOING HOME WITH DIALYSIS BIMAL. D/C INSTRUCTION AND NEW MED INFO WENT THROUGH WITH PT. SCRIPT FOR PAIN MED GIVEN TO PT. DENIES ANY QUESTIONS. TAKEN DOWN VIA WHEELCHAIR, PICKING PT UP
== END 2020-06-27 17:33 | disposition home or self-care (01) ==
LOC: ER 14:15 → 3W 17:10
PROVIDERS: Emergency Medicine; Internal Medicine Cardiovascular Disease; ADMIT Internal Medicine; ATTEND Internal Medicine
DX: R07.89 Other chest pain (principal); Z20.822 Contact with and (suspected) exposure to COVID-19; I12.9 Hypertensive chronic kidney disease with stage 1 through stage 4 chronic kidney disease, or unspecified chronic kidney disease; N18.6 End stage renal disease; E78.5 Hyperlipidemia, unspecified; J44.9 Chronic obstructive pulmonary disease, unspecified; D63.8 Anemia in other chronic diseases classified elsewhere; L93.0 Discoid lupus erythematosus; Z91.041 Radiographic dye allergy status; Z86.711 Personal history of pulmonary embolism; Z79.01 Long term (current) use of anticoagulants; Z79.899 Other long term (current) drug therapy
CPT/HCPCS: 32100